=== PATIENT | male | born 1940 | race Caucasian/White ===

== ENCOUNTER 2018-01-05 14:50 | Observation (INO) | payer MEDICARE, BC ==
[2018-01-05] MEDS ORDERED: Sodium Chloride 0.9% 2.5 ML Syringe FLUSH PRN (15:01)
[2018-01-05] MEDS ORDERED: Sodium Chloride 0.9% 10 ML Syringe FLUSH PRN (15:01)
--- NOTE | 2018-01-05 15:01 | EDM.PDOC ---
<Susan Branch - Last Filed: 01/05/18 16:15> ED HPI GENERAL MEDICAL PROBLEM - General Stated Complaint: POSSIBLE STROKE Time Seen by Provider: 01/05/18 14:56 Source of Information: Reports: Patient, Family History Limitations: Reports: No Limitations - History of Present Illness INITIAL COMMENTS - FREE TEXT/NARRATIVE: HISTORY AND PHYSICAL: 77-year-old man presents with strokelike symptoms History of Present Illness: []He states that 20 minutes ago he started having tingling and some numbness decreased movement to his right leg 2008 patient states he had a stroke He has history of TIAs Patient's speech has improved over the last 2 minutes slight slurring on admission Review of Systems: As per history of present illness and below otherwise all systems reviewed and negative. Past medical history: As per history of present illness and as reviewed below otherwise noncontributory. Surgical history: As per history of present illness and as reviewed below otherwise noncontributory. Social history: No reported history of drug or alcohol abuse. Family history: As per history of present illness and as reviewed below otherwise noncontributory. Physical exam: Alert gentleman who is answering questions appropriately he keeps leaning back during examination as though he is unsteady. He does feel like he is having difficulty with his balance. Patient has slight weakness with lifting his leg on the right. Light drooping to the right side of his face. Hand grasp are equal. When asked patient does admit to having a mild headache. HEENT: Atraumatic, normocehpalic, pupils reactive, negative for conjunctival pallor or scleral icterus, mucous membranes moist, throat clear, neck supple, nontender, trachea midline. Pupils are 4 mm and react to light equally. Lungs: Clear to auscultation, breath sounds equal bilaterally, chest non tender. Heart: S1S2, regular, negative for clicks, rubs, or JVD. Abdomen: Soft, nondistended, nontender. Negative for masses or hepatossplenmegaly. Negative for costovertebral tenderness. Pelvis: Stable nontender. Genitourinary: Deferred. Rectal: Deferred Extremities: Atraumatic, negative for cords or calf pain. Neurovascular unremarkable. Neuro: Awake, alert, oriented. Cranial nerves II through XII unremarkable. Cerebellum unremarkable. Motor and sensory unremarkable throughout. Exam nonfocal. Call received from Dr. Baker and radiology stating that there was no acute changes on the head CT scan Have discussed with the family and with Dr. Kelsey that patient has resolved most of the symptoms he presented with but would like to refer for observation on telemetry and all are agreeable to this recommended course of action. Diagnostics: []Head CT EKG chest x-ray CBC CMP amylase lipase PT/INR Therapeutics: []Normal saline Impression: []TIA versus stroke Plan: []Refer for observation on telemetry Definitive disposition and diagnosis as appropriate pending reevaluation and review of above. Onset: Today, Sudden Duration: Minutes: (20) Location: Reports: Lower Extremity, Right Quality: Reports: Ache Severity: Mild Improves with: Reports: None Worsens with: Reports: None - Related Data Allergies Allergy/AdvReac Type Severity Reaction Status Date / Time No Known Allergies Allergy Verified 01/05/18 15:57 Home Meds: Home Meds Atenolol 25 mg PO BRK 08/01/14 [History] Clopidogrel [Plavix] 75 mg PO DAILY 08/01/14 [History] Aspirin [Halfprin] 1 tab PO DAILY 12/20/14 [History] Lutein/Minerals/Vit A,C & E [Ocuvite] 1 tab PO DAILY 07/18/16 [History] Rosuvastatin Calcium [Crestor] 40 mg PO DAILY 01/05/18 [History] Past Medical History HEENT History: Reports: Cataract Other HEENT History: wears glasses Cardiovascular History: Reports: High Cholesterol, Hypertension Respiratory History: Reports: None Other Respiratory History: FORMER SMOKER Gastrointestinal History: Reports: None Genitourinary History: Reports: BPH Musculoskeletal History: Reports: Amputation, Arthritis Other Musculoskeletal History: amputation of right thumb Neurological History: Reports: CVA Other Neuro History: 2008, still taking Plavix Psychiatric History: Reports: None Endocrine/Metabolic History: Reports: None Hematologic History: Reports: None Immunologic History: Reports: None Oncologic (Cancer) History: Reports: Other (See Below) Other Oncologic History: some type of skin cancer removed from chest Dermatologic History: Reports: None - Past Surgical History HEENT Surgical History: Reports: Eye Surgery Social & Family History - Family History Family Medical History: Noncontributory ED ROS GENERAL - Review of Systems Review Of Systems: ROS reveals no pertinent complaints other than HPI. ED EXAM, GENERAL - Physical Exam Exam: See Below (see dictation) EKG INTERPRETATION EKG Date: 01/05/18 Rhythm: NSR Rate (Beats/Min): 60 Comparison: No Change Course - Vital Signs Last Recorded V/S: Last Vital Signs Temp 37.0 C 01/06/18 04:00 Pulse 58 L 01/06/18 04:00 Resp 16 01/06/18 04:00 BP 113/64 01/06/18 04:00 Pulse Ox 96 01/06/18 04:00 - Orders/Labs/Meds Orders: Active Orders 24 hr Category Date Time Status Assess Neurological Status [RC] ASDIRECTED Care 01/05/18 15:04 Active Bedrest [RC] ASDIRECTED Care 01/05/18 15:04 Active Cardiac Monitoring [RC] Q8H Care 01/05/18 15:04 Active NIH Stroke Scale [RC] Q4H Care 01/05/18 15:04 Active Nursing Bedside Swallow Screen [RC] ASDIRECTED Care 01/05/18 15:04 Active Oxygen Therapy [RC] ASDIRECTED Care 01/05/18 15:04 Active Stroke Education, General [] Click to Edit Care 01/05/18 15:04 Active Sodium Chloride 0.9% [Saline Flush] Med 01/05/18 15:01 Active 10 ml FLUSH ASDIRECTED PRN Sodium Chloride 0.9% [Saline Flush] Med 01/05/18 15:01 Active 2.5 ml FLUSH ASDIRECTED PRN Peripheral IV Insertion Adult [OM.PC] Stat Oth 01/05/18 15:04 Ordered Peripheral IV Insertion Adult [OM.PC] Stat Ot 01/05/18 15:04 Ordered Resuscitation Status Stat Resus Stat 01/05/18 15:01 Ordered Medication Orders Aspirin (Halfprin) 81 mg PO DAILY [facility]REEN Clopidogrel Bisulfate (Plavix) 75 mg PO DAILY [facility]RE[facility] Rosuvastatin Calcium (Crestor) 40 mg PO DAILY NASREEN Sodium Chloride (Saline Flush) 10 ml FLUSH ASDIRECTED PRN PRN Reason: Keep Vein Open Last Admin: 01/05/18 15:42 Dose: 10 ml Sodium Chloride (Saline Flush) 2.5 ml FLUSH ASDIRECTED PRN PRN Reason: Keep Vein Open Last Admin: 01/05/18 15:42 Dose: 2.5 ml Labs: Laboratory Tests 01/05/18 01/05/18 01/05/18 Range/Units 14:50 14:50 14:50 WBC 6.19 (4.0-11.0) K/uL RBC 3.98 L (4.50-5.90) M/uL Hgb 12.7 L (13.0-17.0) g/dL Hct 37.0 L (38.0-50.0) % MCV 93.0 (80.0-98.0) fL MCH 31.9 (27.0-32.0) pg MCHC 34.3 (31.0-37.0) g/dL RDW Std Deviation 46.7 (28.0-62.0) fl RDW Coeff of Cat 14 (11.0-15.0) % Plt Count 174 (150-400) K/uL MPV 10.60 (7.40-12.00) fL Neut % (Auto) 56.4 (48.0-80.0) % Lymph % (Auto) 29.6 (16.0-40.0) % [place] % (Auto) 11.3 (0.0-15.0) % Eos % (Auto) 2.4 (0.0-7.0) % Baso % (Auto) 0.3 (0.0-1.5) % Neut # (Auto) 3.5 (1.4-5.7) K/uL Lymph # (Auto) 1.8 (0.6-2.4) K/uL [place] # (Auto) 0.7 (0.0-0.8) K/uL Eos # (Auto) 0.2 (0.0-0.7) K/uL Baso # (Auto) 0.0 (0.0-0.1) K/uL Nucleated RBC % 0.0 /100WBC Nucleated RBCs # 0 K/uL INR 1.02 APTT 25.0 (18.6-31.3) SEC Sodium 141 (136-148) mmol/L Potassium 3.9 (3.5-5.1) mmol/L Chloride 107 (98-107) mmol/L Carbon Dioxide 24.9 (21.0-32.0) mmol/L BUN 25 H (7.0-18.0) mg/dL Creatinine 1.0 (0.8-1.3) mg/dL Est Cr Clr Drug Dosing TNP Estimated GFR (MDRD) > 60.0 ml/min Glucose 85 (74-106) mg/dL Calcium 8.7 (8.5-10.1) mg/dL Total Bilirubin 0.6 (0.2-1.0) mg/dL AST 25 (15-37) IU/L ALT 22 (14-63) IU/L Alkaline Phosphatase 69 (46-116) U/L Troponin I < 0.050 (0.000-0.056) ng/mL Total Protein 7.0 (6.4-8.2) g/dL Albumin 4.1 (3.4-5.0) g/dL Globulin 2.9 (2.0-3.5) g/dL Albumin/Globulin Ratio 1.4 (1.3-2.8) TSH 3rd Generation 0.74 (0.36-3.74) uIU/mL Meds: Medications Generic Name Dose Route Start Last Admin Trade Name Freq PRN Reason Stop Dose Admin Aspirin 81 mg 01/06/18 09:00 Halfprin PO DAILY NASREEN Clopidogrel Bisulfate 75 mg 01/06/18 09:00 Plavix PO DAILY NASREEN Rosuvastatin Calcium 40 mg 01/06/18 09:00 Crestor PO DAILY NASREEN Sodium Chloride 10 ml 01/05/18 15:01 01/05/18 15:42 Saline Flush FLUSH 10 ml ASDIRECTED PRN Administration Keep Vein Open Sodium Chloride 2.5 ml 01/05/18 15:01 01/05/18 15:42 Saline Flush FLUSH 2.5 ml ASDIRECTED PRN Administration Keep Vein Open Discontinued Medications Generic Name Dose Route Start Last Admin Trade Name Freq PRN Reason Stop Dose Admin Aspirin 81 mg 01/05/18 15:35 01/05/18 15:43 Aspirin PO 01/05/18 15:36 81 mg ONETIME ONE Administration Departure - Departure Time of Disposition: 16:16 Disposition: Refer to Observation Condition: Good Clinical Impression: TIA (transient ischemic attack) Qualifiers: Transient cerebral ischemia type: unspecified Qualified Code(s): G45.9 - Transient cerebral ischemic attack, unspecified - Discharge Information <Evelyne Mcmillan - Last Filed: 01/06/18 08:21> ED HPI GENERAL MEDICAL PROBLEM - History of Present Illness INITIAL COMMENTS - FREE TEXT/NARRATIVE: This is Dr. Mcmillan dictating an addendum note as the supervising physician on this case. Patient's initial stroke scale was a 3 and I evaluated him after he returned from CT scan and he is now lifting his right leg and holding in it in the air with some wobbling but he is able to keep it from falling against gravity. This is much improved prior to his initial evaluation. We will continue with his workup including labs CT scan and discussion with the hospitalist as this is likely a TIA. At this point the patient does not meet criteria for TPA administration as his initial stroke scale is only a 3 and he is improving in his symptomatology. Please also add that this patient was admitted to observation on telemetry and was not discharged home. Discharge instructions inadvertently were placed on the chart and should be disregarded Course - Orders/Labs/Meds Labs: Laboratory Tests 01/05/18 01/05/18 01/05/18 Range/Units 14:50 14:50 14:50 WBC 6.19 (4.0-11.0) K/uL RBC 3.98 L (4.50-5.90) M/uL Hgb 12.7 L (13.0-17.0) g/dL Hct 37.0 L (38.0-50.0) % MCV 93.0 (80.0-98.0) fL MCH 31.9 (27.0-32.0) pg MCHC 34.3 (31.0-37.0) g/dL RDW Std Deviation 46.7 (28.0-62.0) fl RDW Coeff of Cat 14 (11.0-15.0) % Plt Count 174 (150-400) K/uL MPV 10.60 (7.40-12.00) fL Neut % (Auto) 56.4 (48.0-80.0) % Lymph % (Auto) 29.6 (16.0-40.0) % [place] % (Auto) 11.3 (0.0-15.0) % Eos % (Auto) 2.4 (0.0-7.0) % Baso % (Auto) 0.3 (0.0-1.5) % Neut # (Auto) 3.5 (1.4-5.7) K/uL Lymph # (Auto) 1.8 (0.6-2.4) K/uL [place] # (Auto) 0.7 (0.0-0.8) K/uL Eos # (Auto) 0.2 (0.0-0.7) K/uL Baso # (Auto) 0.0 (0.0-0.1) K/uL Nucleated RBC % 0.0 /100WBC Nucleated RBCs # 0 K/uL INR 1.02 APTT 25.0 (18.6-31.3) SEC Sodium 141 (136-148) mmol/L Potassium 3.9 (3.5-5.1) mmol/L Chloride 107 (98-107) mmol/L Carbon Dioxide 24.9 (21.0-32.0) mmol/L BUN 25 H (7.0-18.0) mg/dL Creatinine 1.0 (0.8-1.3) mg/dL Est Cr Clr Drug Dosing TNP Estimated GFR (MDRD) > 60.0 ml/min Glucose 85 (74-106) mg/dL Calcium 8.7 (8.5-10.1) mg/dL Total Bilirubin 0.6 (0.2-1.0) mg/dL AST 25 (15-37) IU/L ALT 22 (14-63) IU/L Alkaline Phosphatase 69 (46-116) U/L Troponin I < 0.050 (0.000-0.056) ng/mL Total Protein 7.0 (6.4-8.2) g/dL Albumin 4.1 (3.4-5.0) g/dL Globulin 2.9 (2.0-3.5) g/dL Albumin/Globulin Ratio 1.4 (1.3-2.8) TSH 3rd Generation 0.74 (0.36-3.74) uIU/mL
--- NOTE | 2018-01-05 15:27 | CT ---
EXAMINATION: Non contrast CT head. Coronal and sagittal reformats. HISTORY: Stroke code FINDINGS: No evidence of intra or extra axial hemorrhage, mass, midline shift, hydrocephalus or edema. There i s encephalomalacia within the left frontal to parietal distribution superiorly. No hypoattenuation changes in the major vascular territories to suggest acute infarct. No abnormal intracranial calcifications are detected. No evidence of substantial vascular calcificat ions. Minimal mucosal thickening within ethmoid air cells. Mastoid air cells are clear. Orbits and globes a re symmetric. Pituitary fossa appears unremarkable. Calvarium is intact. No evidence of skull fracture. IMPRESSION: 1. No acute intracranial findings. 2. 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 Above findings were called to the ER at 3:21 PM.
[2018-01-05] MEDS ORDERED: Aspirin 81 MG Tab.Chew PO ONE (15:35)
[2018-01-05 16:02] LABS: CHLORIDE,CL 107 mmol/L (98-107); SODIUM,NA 141 mmol/L (136-148)
--- NOTE | 2018-01-05 22:17 | PCM.HP ---
H&P History of Present Illness - General Admit Problem/Dx: Admission Diagnosis/Problem Admission Diagnosis/Problem TIA, Transient ischemic attack - History of Present Illness Initial Comments - Free Text/Narative: 77 yo male with pmh of CVA in 2008 and TIA in 2013 who is on ASA and plavix who presents with right leg and arm weakness. 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 In the ED he was noted to have facial droop and slurred speech but patient did not notice this. He had improvement in his stroke symptoms in the ED and the use of TPA was ruled out. CT head showed no acute changes. - Related Data Allergies/Adverse Reactions: Allergies Allergy/AdvReac Type Severity Reaction Status Date / Time No Known Allergies Allergy Verified 01/05/18 15:57 Home Medications: Home Meds Atenolol 25 mg PO BRK 08/01/14 [History] Clopidogrel [Plavix] 75 mg PO DAILY 08/01/14 [History] Aspirin [Halfprin] 1 tab PO DAILY 12/20/14 [History] Lutein/Minerals/Vit A,C & E [Ocuvite] 1 tab PO DAILY 07/18/16 [History] Rosuvastatin Calcium [Crestor] 40 mg PO DAILY 01/05/18 [History] Past Medical History HEENT History: Reports: Cataract Other HEENT History: wears glasses Cardiovascular History: Reports: High Cholesterol, Hypertension Respiratory History: Reports: None Other Respiratory History: FORMER SMOKER Gastrointestinal History: Reports: None Genitourinary History: Reports: BPH Musculoskeletal History: Reports: Amputation, Arthritis Other Musculoskeletal History: amputation of right thumb Neurological History: Reports: CVA Other Neuro History: 2008, still taking Plavix Psychiatric History: Reports: None Endocrine/Metabolic History: Reports: None Hematologic History: Reports: None Immunologic History: Reports: None Oncologic (Cancer) History: Reports: Other (See Below) Other Oncologic History: some type of skin cancer removed from chest Dermatologic History: Reports: None - Infectious Disease History Infectious Disease History: Reports: Chicken Pox, Measles, Mumps - Past Surgical History Head Surgeries/Procedures: Reports: None HEENT Surgical History: Reports: Eye Surgery Social & Family History - Family History Family Medical History: Noncontributory - Tobacco Use Smoking Status *Q: Never Smoker Used Tobacco, but Quit: Yes Month/Year Tobacco Last Used: 08/2008 Second Hand Smoke Exposure: No - Caffeine Use Caffeine Use: Reports: Coffee - Alcohol Use Date of Last Drink: 01/04/18 - Recreational Drug Use Recreational Drug Use: No H&P Review of Systems - Review of Systems: Review Of Systems: ROS reveals no pertinent complaints other than HPI. Exam - Exam Exam: See Below - Vital Signs Vital Signs: Last Vital Signs Temp 36.9 C 01/05/18 19:15 Pulse 62 01/05/18 19:15 Resp 16 01/05/18 19:15 BP 171/82 H 01/05/18 19:15 Pulse Ox 98 01/05/18 19:15 Weight: 67.54 kg - Exam General: Alert, Oriented HEENT: Mucosa Moist & [place] Lungs: Clear to Auscultation, Normal Respiratory Effort Cardiovascular: Regular Rate, Regular Rhythm GI/Abdominal Exam: Soft, Non-Tender Extremities: Normal Inspection, Normal Range of Motion, Non-Tender, No Pedal Edema Skin: Warm, Dry, Intact Neurological: Cranial Nerves Intact, Reflexes Equal Bilateral, Strength Equal Bilateral, Normal Tone, Sensation Intact. No: Focal Deficit - Patient Data Lab Results Last 24 hrs: Laboratory Results - last 24 hr 01/05/18 01/05/18 01/05/18 Range/Units 14:50 14:50 14:50 WBC 6.19 (4.0-11.0) K/uL RBC 3.98 L (4.50-5.90) M/uL Hgb 12.7 L (13.0-17.0) g/dL Hct 37.0 L (38.0-50.0) % MCV 93.0 (80.0-98.0) fL MCH 31.9 (27.0-32.0) pg MCHC 34.3 (31.0-37.0) g/dL RDW Std Deviation 46.7 (28.0-62.0) fl RDW Coeff of Cat 14 (11.0-15.0) % Plt Count 174 (150-400) K/uL MPV 10.60 (7.40-12.00) fL Neut % (Auto) 56.4 (48.0-80.0) % Lymph % (Auto) 29.6 (16.0-40.0) % [place] % (Auto) 11.3 (0.0-15.0) % Eos % (Auto) 2.4 (0.0-7.0) % Baso % (Auto) 0.3 (0.0-1.5) % Neut # (Auto) 3.5 (1.4-5.7) K/uL Lymph # (Auto) 1.8 (0.6-2.4) K/uL [place] # (Auto) 0.7 (0.0-0.8) K/uL Eos # (Auto) 0.2 (0.0-0.7) K/uL Baso # (Auto) 0.0 (0.0-0.1) K/uL Nucleated RBC % 0.0 /100WBC Nucleated RBCs # 0 K/uL INR 1.02 APTT 25.0 (18.6-31.3) SEC Sodium 141 (136-148) mmol/L Potassium 3.9 (3.5-5.1) mmol/L Chloride 107 (98-107) mmol/L Carbon Dioxide 24.9 (21.0-32.0) mmol/L BUN 25 H (7.0-18.0) mg/dL Creatinine 1.0 (0.8-1.3) mg/dL Est Cr Clr Drug Dosing TNP Estimated GFR (MDRD) > 60.0 ml/min Glucose 85 (74-106) mg/dL Calcium 8.7 (8.5-10.1) mg/dL Total Bilirubin 0.6 (0.2-1.0) mg/dL AST 25 (15-37) IU/L ALT 22 (14-63) IU/L Alkaline Phosphatase 69 (46-116) U/L Troponin I < 0.050 (0.000-0.056) ng/mL Total Protein 7.0 (6.4-8.2) g/dL Albumin 4.1 (3.4-5.0) g/dL Globulin 2.9 (2.0-3.5) g/dL Albumin/Globulin Ratio 1.4 (1.3-2.8) TSH 3rd Generation 0.74 (0.36-3.74) uIU/mL Result Diagrams: 01/05/18 14:50 01/05/18 14:50 Problem List Initiated/Reviewed/Updated: Yes Orders Last 24hrs: Active Orders 24 hr Category Date Time Status Patient Status [ADT] Stat ADT 01/05/18 16:13 Active Assess Neurological Status [RC] ASDIRECTED Care 01/05/18 15:04 Active Bedrest [RC] ASDIRECTED Care 01/05/18 15:04 Active Blood Glucose Check, Bedside [RC] STAT Care 01/05/18 15:04 Active Cardiac Monitoring [RC] . DIRECTED Care 01/05/18 15:04 Active EKG Documentation Completion [RC] STAT Care 01/05/18 15:04 Active Height and Weight [RC] UPON Care 01/05/18 15:04 Active Initiate Acute Stroke Protocol [RC] STAT Care 01/05/18 15:04 Active NIH Stroke Scale [RC] ASDIRECTED Care 01/05/18 15:04 Active Nursing Bedside Swallow Screen [RC] ASDIRECTED Care 01/05/18 15:04 Active Oxygen Therapy [RC] ASDIRECTED Care 01/05/18 15:04 Active Stroke Education, General [RC] Click to Edit Care 01/05/18 15:04 Active Telemetry Monitoring [Cardiac Monitoring] [RC] . Care 01/05/18 16:53 Active DIRECTED Vital Signs [RC] Q15M Care 01/05/18 15:04 Active Regular Diet [DIET] Diet 01/06/18 Breakfast Active Ang Head wo Cont [MR] Routine Exams 01/05/18 22:13 Ordered Brain w wo Cont [MR] Routine Exams 01/05/18 22:13 Ordered MRA Neck Without Contrast [Ang Neck wo Cont] [MR] Exams 01/05/18 22:13 Ordered Routine Aspirin [Halfprin] Med 01/06/18 09:00 Ordered DOSE mg PO DAILY Clopidogrel [Plavix] Med 01/06/18 09:00 Ordered 75 mg PO DAILY Rosuvastatin Calcium [Crestor] Med 01/06/18 09:00 Ordered 40 mg PO DAILY Sodium Chloride 0.9% [Saline Flush] Med 01/05/18 15:01 Active 10 ml FLUSH ASDIRECTED PRN Sodium Chloride 0.9% [Saline Flush] Med 01/05/18 15:01 Active 2.5 ml FLUSH ASDIRECTED PRN Peripheral IV Insertion Adult [OM.PC] Stat Oth 01/05/18 15:04 Ordered Peripheral IV Insertion Adult [OM.PC] Stat Oth 01/05/18 15:04 Ordered Resuscitation Status Stat Resus Stat 01/05/18 15:01 Ordered Medication Orders Aspirin (Halfprin) 81 mg PO DAILY NASREEN Clopidogrel Bisulfate (Plavix) 75 mg PO DAILY NASREEN Non-Formulary Medication (Rosuvastatin Calcium [Crestor]) 40 mg PO DAILY NASREEN Sodium Chloride (Saline Flush) 10 ml FLUSH ASDIRECTED PRN PRN Reason: Keep Vein Open Last Admin: 01/05/18 15:42 Dose: 10 ml Sodium Chloride (Saline Flush) 2.5 ml FLUSH ASDIRECTED PRN PRN Reason: Keep Vein Open Last Admin: 01/05/18 15:42 Dose: 2.5 ml Assessment/Plan Comment:: 77 yo male admitted with TIA. We will observe overnight on telemetry.
[2018-01-06] MEDS: Rosuvastatin 10 MG Tab PO SCH (09:26)
[2018-01-06] MEDS: Clopidogrel 75 MG Tab PO SCH (09:29)
[2018-01-06] MEDS: Aspirin 81 MG Tab.EC PO SCH (09:30)
--- NOTE | 2018-01-06 13:00 | PCM.PN ---
- General Info Date of Service: 01/06/18 Admission Dx/Problem (Free Text): Admission Diagnosis/Problem Admission Diagnosis/Problem TIA, Transient ischemic attack Subjective Update: patient doing much better today. He is alert and oriented and now ambulating with some difficulty. He is requesting to go home. Functional Status: Reports: Pain Controlled, Tolerating Diet, Ambulating, Urinating - Review of Systems General: Reports: No Symptoms HEENT: Reports: No Symptoms Pulmonary: Reports: No Symptoms Cardiovascular: Reports: No Symptoms Gastrointestinal: Reports: No Symptoms Genitourinary: Reports: No Symptoms Musculoskeletal: Reports: No Symptoms Skin: Reports: No Symptoms Neurological: Reports: Pre-Existing Deficit, Weakness (improving ) Psychiatric: Reports: No Symptoms - Patient Data Vitals - Most Recent: Last Vital Signs Temp 36.7 C 01/06/18 12:00 Pulse 53 L 01/06/18 12:00 Resp 13 01/06/18 12:00 BP 155/73 H 01/06/18 12:00 Pulse Ox 98 01/06/18 12:00 Weight - Most Recent: 67.54 kg I&O - Last 24 Hours: Intake & Output 01/05/18 01/06/18 01/06/18 22:59 06:59 14:59 Intake Total 360 Output Total 500 Balance -140 Lab Results Last 24 Hours: Laboratory Results - last 24 hr 01/05/18 01/05/18 01/05/18 Range/Units 14:50 14:50 14:50 WBC 6.19 (4.0-11.0) K/uL RBC 3.98 L (4.50-5.90) M/uL Hgb 12.7 L (13.0-17.0) g/dL Hct 37.0 L (38.0-50.0) % MCV 93.0 (80.0-98.0) fL MCH 31.9 (27.0-32.0) pg MCHC 34.3 (31.0-37.0) g/dL RDW Std Deviation 46.7 (28.0-62.0) fl RDW Coeff of Cat 14 (11.0-15.0) % Plt Count 174 (150-400) K/uL MPV 10.60 (7.40-12.00) fL Neut % (Auto) 56.4 (48.0-80.0) % Lymph % (Auto) 29.6 (16.0-40.0) % [place] % (Auto) 11.3 (0.0-15.0) % Eos % (Auto) 2.4 (0.0-7.0) % Baso % (Auto) 0.3 (0.0-1.5) % Neut # (Auto) 3.5 (1.4-5.7) K/uL Lymph # (Auto) 1.8 (0.6-2.4) K/uL [place] # (Auto) 0.7 (0.0-0.8) K/uL Eos # (Auto) 0.2 (0.0-0.7) K/uL Baso # (Auto) 0.0 (0.0-0.1) K/uL Nucleated RBC % 0.0 /100WBC Nucleated RBCs # 0 K/uL INR 1.02 APTT 25.0 (18.6-31.3) SEC Sodium 141 (136-148) mmol/L Potassium 3.9 (3.5-5.1) mmol/L Chloride 107 (98-107) mmol/L Carbon Dioxide 24.9 (21.0-32.0) mmol/L BUN 25 H (7.0-18.0) mg/dL Creatinine 1.0 (0.8-1.3) mg/dL Est Cr Clr Drug Dosing TNP Estimated GFR (MDRD) > 60.0 ml/min Glucose 85 (74-106) mg/dL Calcium 8.7 (8.5-10.1) mg/dL Total Bilirubin 0.6 (0.2-1.0) mg/dL AST 25 (15-37) IU/L ALT 22 (14-63) IU/L Alkaline Phosphatase 69 (46-116) U/L Troponin I < 0.050 (0.000-0.056) ng/mL Total Protein 7.0 (6.4-8.2) g/dL Albumin 4.1 (3.4-5.0) g/dL Globulin 2.9 (2.0-3.5) g/dL Albumin/Globulin Ratio 1.4 (1.3-2.8) TSH 3rd Generation 0.74 (0.36-3.74) uIU/mL Med Orders - Current: Current Medications Aspirin (Halfprin) 81 mg PO DAILY [facility] Last Admin: 01/06/18 09:30 Dose: 81 mg Clopidogrel Bisulfate (Plavix) 75 mg PO DAILY [facility] Last Admin: 01/06/18 09:29 Dose: 75 mg Rosuvastatin Calcium (Crestor) 40 mg PO DAILY [facility] Last Admin: 01/06/18 09:26 Dose: 40 mg Sodium Chloride (Saline Flush) 10 ml FLUSH ASDIRECTED PRN PRN Reason: Keep Vein Open Last Admin: 01/05/18 15:42 Dose: 10 ml Sodium Chloride (Saline Flush) 2.5 ml FLUSH ASDIRECTED PRN PRN Reason: Keep Vein Open Last Admin: 01/05/18 15:42 Dose: 2.5 ml Discontinued Medications Aspirin (Aspirin) 81 mg PO ONETIME ONE Stop: 01/05/18 15:36 Last Admin: 01/05/18 15:43 Dose: 81 mg - Exam General: Alert, Oriented, Cooperative, No Acute Distress HEENT: Pupils Equal, Pupils Reactive, EOMI, Mucous Membr. Moist/[place] Neck: Supple Lungs: Clear to Auscultation, Normal Respiratory Effort Cardiovascular: Regular Rate, Murmurs Extremities: Normal Inspection (s/p right thumb amputation ), Normal Range of Motion, Non-Tender, No Pedal Edema, Normal Capillary Refill Peripheral Pulses: 2+: Dorsalis Pedis (L), Dorsalis Pedis (R) Skin: Intact Neurological: Other (Gait antalgic but improving, sensation intact throughout, motor strength 5/5, specimen collector strength strong and symmetric, normal finger to nose, normal heel to chaidez, CN 2-12 intact, DTR 2+) Psy/Mental Status: Alert, Normal Affect, Normal Mood - Problem List Review Problem List Initiated/Reviewed/Updated: Yes - Plan Plan:: 77 yo male with Hx HTN, HLD and CVA with residual defects admitted with TIA #TIA #HX CVA with mild residual defects -CT head in ED negative for acute changes -symptoms improving -neuro exam: Gait antalgic, sensation intact throughout, motor strength 5/5, specimen collector strength strong and symmetric, normal finger to nose, normal heel to chaidez, CN 2-12 intact, DTR 2+ -on ASA, Plavix, Crestor 40 mg QD Plan: -MRA head Neck -echocardiogram -lipid panel -HbA1c #HTN -on Atenolol 25 mg QD at home -resume as necessary
[2018-01-06] MEDS ORDERED: Gadobenate Dimeglumine 529 MG/ML 20 ML SDV IVPUSH STA (14:54)
--- NOTE | 2018-01-06 16:00 | MR ---
MRI angiography of the intracranial vessels Clinical history: TIA with right-sided weakness Findings: 3-D [id number]-bk-[id number] images demonstrate that the internal carotid circulation is normal, in n ormal constituting anterior cerebral and middle cerebral artery vessels normally. The left A1 segment is dominant and a small A1 segment is present on the right. The posterior cerebral artery originates normally on the left from the basilar artery with no visual evidence of the right posterior cerebral artery. The right posterior cerebral artery evidently arises from the carotid, a normal variant. No major vessel occlusion is evident. Impression: No evidence of major intracranial vessel occlusion. Variant origin of the right posterior cerebral artery
--- NOTE | 2018-01-06 16:04 | MR ---
MR angiography of the neck Images were conducted without intravenous contrast. 3-D tcuo-bk-kgnxtm technique was employed to visu murphy the vessels. Findings: The internal carotid arteries are normal in caliber at their origin on the right with sligh t stenosis secondary to plaque formation at the origin of the left internal carotid artery. The cepha lic vessels take normal origin from the arch although the vertebral arteries are poorly seen correlat ion with a carotid duplex scan of August 01, 2014 suggested no significant Doppler colostomy abnorm alities at that time Impression: Study of somewhat limited technical quality demonstrating some stenosis which is difficul t to characterize at the origin of the left internal carotid artery. Repeat duplex scanning would be more useful
[2018-01-06] MEDS ORDERED: Atenolol 25 MG Tab PO ONE (19:54)
--- NOTE | 2018-01-07 05:11 | PCM.DCSUM1 ---
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 He was admitted from 01/05-01/07. Upon admission to the ED he had RLE weakness and right facial weakness. He was sent for CT head which was negative for acute changes. Upon return from CT he has significant improvement of weakness and drooping. Neurologist was not available therefore consult was not placed. Following day his neuro exam had esentially normalize other some gait disturbance which he states he did have previously and seemed to be improving. MRI brain was done which was negative for acute changes. MRA Head/Neck was also done which showed mild to moderate however Left ICA was distorted for unclear reasons and Duplex Carotid was recommended which was done and revealed 50-69 % stenosis of left ICA and carotid bulb. His echo was also done which was consistent with HFpEF. He was already on Plavix, ASA and Crestor 40 mg QD which were resumed. Repeat lipid panel and HbA1C were obtained. He sees Dr. Yuen as his PCP and f/u was arranged. Prior to discharge he did complain of lumbar pain with radiation down his right led below his knee. This is a chronic problem for him and he has had spinal surgery in the past. He states he had epidural steroid injection in the past which worked well. He was informed that this is not usually done during hospitalization and he should f/u with his PCP for this. #TIA #HX CVA 2008 with mild residual defects #Cerebrovascular Disease, Left ICA & bulb -CT head in ED negative for acute changes -MRI Brain negative for acute changes -MRA Head/Neck mild to moderate however Left ICA was distorted for unclear reasons -Duplex Carotid reveals 50-69% stenosis of Left ICA and carotid bulb. No significant stenosis at right ICA -echo consistent with HFpEF -on ASA, Plavix, Crestor 40 mg QD -lipid panel 01/05: LDL 60, TC 139, HDL 69 -HbA1c 6% on 01/05 Plan: -resume home ASA, Plavix and Crestor -f/u with PCP to discuss referral to vascular surgery for further evaluation #HTN, controlled, on Atenolol 25 mg QD #HFpEF -Overnight telemetry fluctuating bw NSR and sinus bradycardia -BP elevated to 150-160s -started Lisinopril 5 mg QD - BP improved to 130-140 Plan: -due to Hx CVA and cerebrovascular disease recommended target SBP 120-130 -resume home Atenolol 25 mg QD -prescribed Lisinopril 10 mg tabs, instructed him to take 0.5 tab daily until f/ u with PCP for repeat BP check -f/u with PCP #Lumbar Back Pain, likely due to OA #Sciatica, right -f/u with PCP to arrange for epidural injections and/or MRI - Discharge Data Discharge Date: 01/07/18 Discharge Disposition: Home, Self-Care 01 Condition: Good - Patient Instructions Diet: Heart Healthy Diet Activity: As Tolerated Showering/Bathing: December Shower Notify Provider of: Fever, Increased Pain, Swelling and Redness, Drainage, Nausea and/or Vomiting - Discharge Plan Prescriptions/Med Rec: Lisinopril 10 mg PO DAILY #30 tablet Home Medications: Home Meds Atenolol 25 mg PO BRK 08/01/14 [History] Clopidogrel [Plavix] 75 mg PO DAILY 08/01/14 [History] Aspirin [Halfprin] 1 tab PO DAILY 12/20/14 [History] Lutein/Minerals/Vit A,C & E [Ocuvite] 1 tab PO DAILY 07/18/16 [History] Rosuvastatin Calcium [Crestor] 40 mg PO DAILY 01/05/18 [History] Lisinopril 10 mg PO DAILY #30 tablet 01/07/18 [Rx] Patient Handouts: Transient Ischemic Attack, Weoe-ez-[id number], Lisinopril tablets Referrals: [facility] [Outside] Rui Esteban MD [Primary Care Provider] - 01/15/18 8:45 am - Discharge Summary/Plan Comment DC Time >30 min.: No - General Info Date of Service: 01/07/18 Functional Status: Reports: Pain Controlled, Tolerating Diet, Ambulating, Urinating - Review of Systems General: Reports: No Symptoms HEENT: Reports: No Symptoms Pulmonary: Reports: No Symptoms Cardiovascular: Reports: No Symptoms Gastrointestinal: Reports: No Symptoms Genitourinary: Reports: No Symptoms Musculoskeletal: Reports: Back Pain Skin: Reports: No Symptoms Neurological: Reports: Pre-Existing Deficit, Gait Disturbance Psychiatric: Reports: No Symptoms - Patient Data Vitals - Most Recent: Last Vital Signs Temp 36.5 C 01/07/18 00:00 Pulse 72 01/07/18 00:00 Resp 20 01/07/18 00:00 BP 159/88 H 01/07/18 00:00 Pulse Ox 96 01/07/18 00:00 Weight - Most Recent: 67.54 kg I&O - Last 24 hours: Intake & Output 01/06/18 01/06/18 01/07/18 14:59 22:59 06:59 Intake Total 220 120 Output Total 400 550 Balance -180 -430 Lab Results - Last 24 hrs: Laboratory Results - last 24 hr 01/06/18 01/06/18 Range/Units 13:22 13:22 Hemoglobin A1c 6.0 (4.5-6.2) % Triglycerides 48 (0-200) mg/dL Cholesterol 139 (50-200) mg/dL LDL Cholesterol, Calc 60 (60-180) mg/dL VLDL Cholesterol 9 (5-55) mg/dL HDL Cholesterol 69 H (40-60) mg/dL Cholesterol/HDL Ratio 2.0 L (3.3-6.0) Med Orders - Current: Current Medications Aspirin (Halfprin) 81 mg PO DAILY [facility] Last Admin: 01/06/18 09:30 Dose: 81 mg Atenolol (Tenormin) 25 mg PO ONETIME ONE Stop: 01/07/18 09:01 Clopidogrel Bisulfate (Plavix) 75 mg PO DAILY [facility] Last Admin: 01/06/18 09:29 Dose: 75 mg Rosuvastatin Calcium (Crestor) 40 mg PO DAILY [facility] Last Admin: 01/06/18 09:26 Dose: 40 mg Sodium Chloride (Saline Flush) 10 ml FLUSH ASDIRECTED PRN PRN Reason: Keep Vein Open Last Admin: 01/05/18 15:42 Dose: 10 ml Sodium Chloride (Saline Flush) 2.5 ml FLUSH ASDIRECTED PRN PRN Reason: Keep Vein Open Last Admin: 01/05/18 15:42 Dose: 2.5 ml Discontinued Medications Aspirin (Aspirin) 81 mg PO ONETIME ONE Stop: 01/05/18 15:36 Last Admin: 01/05/18 15:43 Dose: 81 mg Atenolol (Tenormin) 25 mg PO ONETIME ONE Stop: 01/06/18 19:55 Last Admin: 01/06/18 20:23 Dose: 25 mg Gadobenate Dimeglumine (Multihance) 20 ml IVPUSH ONETIME STA Stop: 01/06/18 14:55 Last Admin: 01/06/18 14:55 Dose: 13 ml - Exam General: Reports: Alert, Oriented, Cooperative, No Acute Distress HEENT: Reports: Pupils Equal, Pupils Reactive, EOMI, Mucous Membr. Moist/[employer] Neck: Reports: Supple, No JVD Lungs: Reports: Clear to Auscultation, Normal Respiratory Effort Cardiovascular: Reports: Regular Rate, Murmurs GI/Abdominal Exam: Normal Bowel Sounds, Soft, Non-Tender Back Exam: Reports: Decreased Range of Motion (lumbar ). Denies: Vertebral Tenderness Extremities: Normal Inspection (right thumb amputation), Non-Tender, No Pedal Edema, Normal Capillary Refill Skin: Reports: Warm, Dry, Intact Neurological: Reports: No New Focal Deficit, Normal Speech, Other (ait antalgic , sensation intact throughout, motor strength 5/5, vice president of talent acquisition strength strong and symmetric, normal finger to nose, normal heel to chaidez, CN 2-12 intact, DTR 2+) Psy/Mental Status: Reports: Alert, Normal Affect, Normal Mood <Timothy Kelsey - Last Filed: 01/08/18 08:49> - Patient Data Vitals - Most Recent: Last Vital Signs Temp 36.6 C 01/07/18 07:44 Pulse 64 01/07/18 08:20 Resp 19 01/07/18 07:44 BP 137/96 H 01/07/18 09:50 Pulse Ox 97 01/07/18 07:44 Med Orders - Current: Current Medications Discontinued Medications Aspirin (Aspirin) 81 mg PO ONETIME ONE Stop: 01/05/18 15:36 Last Admin: 01/05/18 15:43 Dose: 81 mg Aspirin (Halfprin) 81 mg PO DAILY [facility] Last Admin: 01/07/18 08:20 Dose: 81 mg Atenolol (Tenormin) 25 mg PO ONETIME ONE Stop: 01/07/18 09:01 Last Admin: 01/07/18 08:20 Dose: 25 mg Atenolol (Tenormin) 25 mg PO ONETIME ONE Stop: 01/06/18 19:55 Last Admin: 01/06/18 20:23 Dose: 25 mg Clopidogrel Bisulfate (Plavix) 75 mg PO DAILY [facility] Last Admin: 01/07/18 08:21 Dose: 75 mg Gadobenate Dimeglumine (Multihance) 20 ml IVPUSH ONETIME STA Stop: 01/06/18 14:55 Last Admin: 01/06/18 14:55 Dose: 13 ml Lisinopril (Prinivil) 10 mg PO ONETIME ONE Stop: 01/07/18 05:35 Last Admin: 01/07/18 05:52 Dose: Not Given Lisinopril (Prinivil) 5 mg PO ONETIME ONE Stop: 01/07/18 05:45 Last Admin: 01/07/18 06:05 Dose: 5 mg Rosuvastatin Calcium (Crestor) 40 mg PO DAILY [facility] Last Admin: 01/07/18 08:21 Dose: 40 mg Sodium Chloride (Saline Flush) 10 ml FLUSH ASDIRECTED PRN PRN Reason: Keep Vein Open Last Admin: 01/05/18 15:42 Dose: 10 ml Sodium Chloride (Saline Flush) 2.5 ml FLUSH ASDIRECTED PRN PRN Reason: Keep Vein Open Last Admin: 01/05/18 15:42 Dose: 2.5 ml - Free Text/Narrative Note: I have examined the patient. I have discussed treatment plan with the resident. I agree with the assessment and plan outlined in the following resident's note.
[2018-01-07] MEDS ORDERED: Lisinopril 10 MG Tab PO ONE (05:34)
[2018-01-07] MEDS ORDERED: Lisinopril 5 MG Tab PO ONE (05:44)
[2018-01-07] MEDS: Aspirin 81 MG Tab.EC PO SCH (08:20)
[2018-01-07] MEDS: Rosuvastatin 10 MG Tab PO SCH (08:21)
[2018-01-07] MEDS: Clopidogrel 75 MG Tab PO SCH (08:21)
[2018-01-07] MEDS ORDERED: Atenolol 25 MG Tab PO ONE (09:00)
--- NOTE | 2018-01-07 09:17 | US ---
EXAM DATE: 01/05/18 PATIENT'S AGE: 77 Patient: AAMIR WYLIE Facility: [facility] Site . Site : 1940 Study: US-Neck Angio Bilateral [id number]/30/2018 5:30:29 PM Ordering Physician: Laure Aguirre Final Report: INDICATION: TIA. Hypertension. Hyperlipidemia. FINDINGS: A carotid duplex Doppler ultrasound was performed using grayscale imaging as well as color and spectral Doppler analysis. NASCET criteria applied. Right: Peak systolic velocity in the right internal carotid wcyvcn=737 cm/second. Mild plaque in the right carotid bulb. Anterograde flow in the right vertebral artery. Left: Peak systolic velocity in the left internal carotid rcdcin=140 cm/second. There is also an elevated velocity in the left carotid dhuj=165 cm/second. Heterogeneous plaque in the left carotid bulb. Anterograde flow in the left vertebral artery. IMPRESSION: 1. 50-69% stenosis in the left internal carotid artery and carotid bulb. 2. No hemodynamically significant stenosis in the right internal carotid artery. Dictated by Ben Garcia MD @ 01/07/2018 9:14:29 AM Dictated by: Ben Garcia MD @ 01/07/2018 09:14:46 Signed by: Ben Garcia MD @01/07/2018 9:14:46 AM (Electronic Signature) Report Signed by Proxy. ALEXI
--- NOTE | 2018-01-07 09:19 | MR ---
EXAM DATE: 01/05/18 PATIENT'S AGE: 77 Patient: AAMIR WYLIE Facility: [facility] Site . Site : 1940 Study: MRI-Head W/ and W/O Cont [id number]/30/2018 5:11:40 PM Ordering Physician: Laure Aguirre Final Report: INDICATION: Right-sided weakness. TECHNIQUE: MRI brain: Multiplanar multisequence MR images were obtained of the brain prior to and following administration of intravenous contrast. MRA head: 3D time-of- flight images were obtained through the [place] of [place]. MRA neck: 2D and 3D [id number] MRA images were obtained through the neck. COMPARISON: None. FINDINGS: MRI brain: Multiple punctate foci of diffusion restriction within the bilateral cerebral hemispheres, compatible with recent infarctions. Infarcts are visualized within the left perirolandic region, anterior left frontal lobe, parasagittal right superior parietal lobule, medial right inferior parietal lobule, and left occipital lobe. There is prominence of the ventricles and sulci compatible with mild to moderate diffuse cerebral volume loss. Moderate sized area of volume loss and gliosis within the left frontoparietal region associated with ex vacuo dilatation of the left lateral ventricle, compatible with a chronic infarction. Patchy and scattered T2 FLAIR hyperintensity elsewhere in the supratentorial white matter, compatible with moderate chronic microvascular ischemic disease with superimposed chronic lacunar infarctions in the bilateral basal ganglia. Multiple small chronic lacunar infarctions in the posterior right cerebellar hemisphere. Small chronic lacunar infarct in the left jonathan. No intracranial hemorrhage or pathologic extra-axial fluid collection. Motion artifact significantly limits evaluation of postcontrast images. Within this limitation, no obvious or definite pathologic intracranial enhancement is identified. The globes are symmetric in size. Mild mucosal thickening in the ethmoid air cells. The mastoid air cells are clear. MRA head: The major vessels of the anterior circulation, including the internal carotid, middle cerebral, and anterior cerebral arteries are patent without hemodynamically significant stenosis. Right A1 segment is dominant and left A1 segment is hypoplastic. origin of the right posterior cerebral artery. The major vessels of the posterior circulation, including the vertebral, basilar , and posterior cerebral arteries are patent without hemodynamically significant stenosis. No aneurysm or high-flow vascular malformation is identified. MRA neck: Noncontrast technique and motion artifact limit evaluation. Within the limitations, no hemodynamically significant stenosis of the great vessels arising from the aortic arch, or the common carotid, internal carotid, external carotid, or vertebral arteries. Mild narrowing and irregularity of the proximal left cervical internal carotid artery. IMPRESSION: 1. Multiple recent punctate infarctions in the bilateral cerebral hemispheres, including involvement of the left perirolandic region, left frontal lobe, right parietal lobe, and left occipital lobe. 2. Moderate size chronic infarction involving the left frontoparietal region. 3. Moderate chronic microvascular ischemic disease with superimposed chronic lacunar infarctions in the bilateral basal ganglia, left jonathan, and right cerebellar hemisphere. 4. Tqcq-yv-ugtcbexo diffuse cerebral volume loss. 5. No hemodynamically significant stenosis in the major intracranial arteries. 6. Motion artifact and noncontrast technique limit MRA evaluation of the neck. Within this limitation, no hemodynamically significant stenosis of the major cervical arteries. Dictated by Vincent Vaca MD @ Jan 06 2018 5:22PM Signed by: Vincent Vaca MD @01/06/2018 5:40:13 PM (Electronic Signature) Report Signed by Proxy. ALEXI
[2018-01-07 10:05] VITALS: BP 137/96
--- NOTE | 2018-01-08 20:21 | ECHO ---
The echocardiogram report can be seen in this patient's EMR (Electronic Medical Record) in the Reports section. The echocardiogram report has also been scanned into PACS and can be seen there. ALEXI
== END 2018-01-07 11:37 | disposition home or self-care (01) ==
LOC: MW.ED 14:50 → MW.MS 16:13 → MW.ED 16:55
PROVIDERS: ADMIT Internal Medicine; ATTEND Internal Medicine
DX: G45.9 Transient cerebral ischemic attack, unspecified (principal); E78.5 Hyperlipidemia, unspecified; I69.398 Other sequelae of cerebral infarction; I11.0 Hypertensive heart disease with heart failure; I50.30 Unspecified diastolic (congestive) heart failure; M54.5 Low back pain; M54.31 Sciatica, right side; E78.00 Pure hypercholesterolemia, unspecified; N40.0 Benign prostatic hyperplasia without lower urinary tract symptoms; M19.90 Unspecified osteoarthritis, unspecified site; Z79.02 Long term (current) use of antithrombotics/antiplatelets; Z79.82 Long term (current) use of aspirin; Z79.899 Other long term (current) drug therapy; Z87.891 Personal history of nicotine dependence; Z85.828 Personal history of other malignant neoplasm of skin
CPT/HCPCS: 36415; 70450; 70450-26; 70544; 70544-26; 70547; 70547-26; 70553; 70553-26; 80053; 80061; 83036; 84443; 84484; 85025; 85610; 85730; 93005; 93306; 93880; 93880-26; 99284; 99285-25; A9270-GY; A9577; G0378

== ENCOUNTER 2018-02-13 21:15 | Emergency (ER) | payer MEDICARE, BC ==
--- NOTE | 2018-02-13 21:23 | EDM.PDOC ---
ED HPI GENERAL MEDICAL PROBLEM - General Chief Complaint: Upper Extremity Injury/Pain Stated Complaint: FELL & HURT SHOULDER Time Seen by Provider: 02/13/18 21:17 - History of Present Illness INITIAL COMMENTS - FREE TEXT/NARRATIVE: HISTORY AND PHYSICAL: History of present illness: Patient is 77-year-old male history of CVA who was on Plavix who presents status post fall which he tripped over a hose striking his face and left shoulder. No loss of consciousness he denies any other trauma or concern he said no nausea no vomiting denies neck pain chest pain abdominal pain shortness of breath or any other concern. Review of systems: As per history of present illness and below otherwise all systems reviewed and negative. Past medical history: As per history of present illness and as reviewed below otherwise noncontributory. Surgical history: As per history of present illness and as reviewed below otherwise noncontributory. Social history: No reported history of drug or alcohol abuse. Family history: As per history of present illness and as reviewed below otherwise noncontributory. Physical exam: HEENT: Abrasion noted over his nasal bridge and midface with some small swelling is no crepitation no bleeding normocephalic, pupils reactive, negative for conjunctival pallor or scleral icterus, mucous membranes moist, throat clear , neck supple, nontender, trachea midline. Lungs: Clear to auscultation, breath sounds equal bilaterally, chest nontender. Heart: S1S2, regular, negative for clicks, rubs, or JVD. Abdomen: Soft, nondistended, nontender. Negative for masses or hepatosplenomegaly. Negative for costovertebral tenderness. Pelvis: Stable nontender. Genitourinary: Deferred. Rectal: Deferred. Extremities: Atraumatic, negative for cords or calf pain. Neurovascular unremarkable. Neuro: Awake, alert, oriented. Cranial nerves II through XII unremarkable. Cerebellum unremarkable. Motor and sensory unremarkable throughout. Exam nonfocal. Diagnostics: CT brain facial bones x-ray left shoulder Therapeutics: None Impression: 1 observation status post fall #2 blunt head/midfacial trauma #3 acute left shoulder injury Definitive disposition and diagnosis as appropriate pending reevaluation and review of above. - Related Data Allergies Allergy/AdvReac Type Severity Reaction Status Date / Time No Known Allergies Allergy Verified 01/05/18 15:57 Home Meds: Home Meds Atenolol 25 mg PO BRK 12/23/14 [History] Clopidogrel [Plavix] 75 mg PO DAILY 08/01/14 [History] Aspirin [Halfprin] 1 tab PO DAILY 12/20/14 [History] Lutein/Minerals/Vit A,C & E [Ocuvite] 1 tab PO DAILY 07/18/16 [History] Rosuvastatin Calcium [Crestor] 40 mg PO DAILY 01/05/18 [History] Lisinopril 10 mg PO DAILY #30 tablet 01/07/18 [Rx] Past Medical History HEENT History: Reports: Cataract Other HEENT History: wears glasses Cardiovascular History: Reports: High Cholesterol, Hypertension Respiratory History: Reports: None Other Respiratory History: FORMER SMOKER Gastrointestinal History: Reports: None Genitourinary History: Reports: BPH Musculoskeletal History: Reports: Amputation, Arthritis Other Musculoskeletal History: amputation of right thumb Neurological History: Reports: CVA Other Neuro History: 2008, still taking Plavix Psychiatric History: Reports: None Endocrine/Metabolic History: Reports: None Hematologic History: Reports: None Immunologic History: Reports: None Oncologic (Cancer) History: Reports: Other (See Below) Other Oncologic History: some type of skin cancer removed from chest Dermatologic History: Reports: None - Infectious Disease History Infectious Disease History: Reports: Chicken Pox, Measles, Mumps - Past Surgical History Head Surgeries/Procedures: Reports: None HEENT Surgical History: Reports: Eye Surgery Social & Family History - Family History Family Medical History: Noncontributory - Caffeine Use Caffeine Use: Reports: Coffee Review of Systems - Review of Systems Review Of Systems: ROS reveals no pertinent complaints other than HPI. ED EXAM, GENERAL - Physical Exam Exam: See Below (Dictation) Course - Vital Signs Last Recorded V/S: Last Vital Signs Temp 36.6 C 02/13/18 22:44 Pulse 81 02/13/18 22:44 Resp 16 02/13/18 22:44 BP 135/71 02/13/18 22:44 Pulse Ox 95 02/13/18 22:44 - Orders/Labs/Meds Orders: Active Orders 24 hr Category Date Time Status Vaccines to be Administered [RC] PER UNIT ROUTINE Care 02/13/18 21:24 Active Head wo Cont [CT] Stat Exams 02/13/18 21:20 Taken Max Facial Sinus wo Cont [CT] Stat Exams 02/13/18 21:20 Taken Shoulder Comp Lt [CR] Stat Exams 02/13/18 21:21 Taken Meds: Medications Discontinued Medications Generic Name Dose Route Start Last Admin Trade Name Isidra PRN Reason Stop Dose Admin Tetanus/Diphtheria Toxoids 0.5 ml 02/13/18 21:24 02/13/18 21:43 Tenivac IM 02/13/18 21:25 0.5 ml .ONCE ONE Administration Departure - Departure Time of Disposition: 23:01 Disposition: Home, Self-Care 01 Condition: Good Clinical Impression: Head injury, Shoulder injury, Fall - Discharge Information Forms: ED Department Discharge Additional Instructions: The following information is given to patients seen in the emergency department who are being discharged to home. This information is to outline your options for follow-up care. We provide all patients seen in our emergency department with a follow-up referral. The need for follow-up, as well as the timing and circumstances, are variable depending upon the specifics of your emergency department visit. If you don't have a primary care physician on staff, we will provide you with a referral. We always advise you to contact your personal physician following an emergency department visit to inform them of the circumstance of the visit and for follow-up with them and/or the need for any referrals to a consulting specialist. The emergency department will also refer you to a specialist when appropriate. This referral assures that you have the opportunity for followup care with a specialist. All of these measure are taken in an effort to provide you with optimal care, which includes your followup. Under all circumstances we always encourage you to contact your private physician who remains a resource for coordinating your care. When calling for followup care, please make the office aware that this follow-up is from your recent emergency room visit. If for any reason you are refused follow-up, please contact the [facility] emergency department at and asked to speak to the emergency department charge nurse. Follow-up primary medical doctor as needed as discussed return as needed as discussed - My Orders Last 24 Hours: My Active Orders 02/13/18 21:20 Head wo Cont [CT] Stat Max Facial Sinus wo Cont [CT] Stat 02/13/18 21:21 Shoulder Comp Lt [CR] Stat 02/13/18 21:24 Vaccines to be Administered [RC] PER UNIT ROUTINE - Assessment/Plan Last 24 Hours: My Active Orders 02/13/18 21:20 Head wo Cont [CT] Stat Max Facial Sinus wo Cont [CT] Stat 02/13/18 21:21 Shoulder Comp Lt [CR] Stat 02/13/18 21:24 Vaccines to be Administered [RC] PER UNIT ROUTINE
[2018-02-13] MEDS ORDERED: Diphtheria/Tetanus Toxoids,Adult (Td) 0.5 ML Syringe IM ONE (21:24)
[2018-02-13 23:26] VITALS: BP 127/72
--- NOTE | 2018-02-15 20:32 | CT ---
EXAM DATE: 02/13/18 PATIENT'S AGE: 77 Patient: AAMIR WYLIE Facility: [place], [place] Site . Site : 1940 Study: CT Facial [id number]/7/2018 10:23:51 PM Ordering Physician: Yovanny Shankar Final Report: INDICATION: Tripped and fell onto steps, hit forehead and nose TECHNIQUE: CT maxillofacial without i.v. contrast. Coronal and sagittal reformats were obtained. CONTRAST: None COMPARISON: None FINDINGS: Bone: No acute fractures or aggressive bone lesions are identified. Chronic appearing bilateral nasal bone fractures noted. Joint: The temporomandibular joints are unremarkable in appearance. Sinus: The sinuses are well-aerated with no significant mucosal thickening or retained secretions seen. The ostiomeatal units are patent. The nasal turbinates are normal. The nasal septum is midline and intact. Orbit: The visualized orbits are grossly unremarkable. Soft tissue: There is a high density 3 mm structure in the soft tissues near the left parasymphyseal region that may be due to a foreign body. IMPRESSION: 1. No acute osseous injuries or abnormalities are seen. 2. There is a high density 3 mm structure in the soft tissues near the left parasymphyseal region that may be due to a foreign body. Please note that all CT scans at this facility use dose modulation, iterative reconstruction, and/or weight-based dosing when appropriate to reduce radiation dose to as low as reasonably achievable. Dictated by: Yogi Núñez MD @ 02/13/2018 23:03:29 (Electronic Signature) Report Signed by Proxy. MTDD
--- NOTE | 2018-02-15 20:33 | CR ---
EXAM DATE: 02/13/18 PATIENT'S AGE: 77 Patient: AAMIR WYLIE Facility: [place], [place] Site . Site : 1940 Study: XRay Shoulder Left [id number]/7/2018 10:27:01 PM Ordering Physician: Doctor Stephenson Final Report: INDICATION: Shoulder pain, fell down stairs TECHNIQUE: Shoulder radiograph 3 views left COMPARISON: None FINDINGS: Bones: No acute fractures or aggressive bone lesions are identified. Joints: Severe osteoarthritis of the AC joint is noted. Mild osteoarthritis of the glenohumeral joint is present. Soft tissues: Unremarkable. The visualized hemithorax is unremarkable in appearance. No radiopaque foreign bodies are seen. IMPRESSION: 1. No acute osseous injuries or abnormalities are noted. Dictated by Yogi Núñez MD @ 02/13/2018 10:37:27 PM Dictated by: Yogi Núñez MD @ 02/13/2018 22:37:30 (Electronic Signature) Report Signed by Proxy. ALEXI
--- NOTE | 2018-02-15 20:33 | CT ---
EXAM DATE: 02/13/18 PATIENT'S AGE: 77 Patient: AAMIR WYLIE Facility: [place], [place] Site . Site : 1940 Study: CT Head [id number]/7/2018 10:32:52 PM Ordering Physician: Yovanny Shankar Final Report: INDICATION: Tripped and fell, hit forehead and nose TECHNIQUE: CT Head without i.v. contrast. CONTRAST: None COMPARISON: 01/05/2018 FINDINGS: CSF spaces: Mild ex vacuo dilatation of the left lateral ventricle is noted. Brain: No evidence of mass, acute infarction or hemorrhage is seen. No mass- effect or midline shift is seen. Mild diffuse cortical atrophy is noted. The brain parenchyma is otherwise normal in appearance with preservation of the leslie -white matter junction. Calvarium: The visualized paranasal sinuses are well aerated. The mastoid air cells are clear. The visualized orbits are grossly unremarkable. The calvarium is unremarkable in appearance with no fractures identified. Miscellaneous: Focal encephalomalacia is present along the medial left frontal parietal region. IMPRESSION: 1. No evidence of acute infarction, intracranial hemorrhage, or mass-effect seen. Dictated by Yogi Núñez MD @ 02/13/2018 10:51:05 PM Please note that all CT scans at this facility use dose modulation, iterative reconstruction, and/or weight-based dosing when appropriate to reduce radiation dose to as low as reasonably achievable. Dictated by: Yogi Núñez MD @ 02/13/2018 22:51:07 (Electronic Signature) Report Signed by Proxy. ALEXI
== END 2018-02-13 23:28 | disposition home or self-care (01) ==
LOC: MW.ED 21:15
DX: S09.90XA Unspecified injury of head, initial encounter (principal); S49.92XA Unspecified injury of left shoulder and upper arm, initial encounter; I10 Essential (primary) hypertension; E78.00 Pure hypercholesterolemia, unspecified; Z87.891 Personal history of nicotine dependence; Z86.73 Personal history of transient ischemic attack (TIA), and cerebral infarction without residual deficits; W18.09XA Striking against other object with subsequent fall, initial encounter; Z79.01 Long term (current) use of anticoagulants; Z79.899 Other long term (current) drug therapy; Z23 Encounter for immunization
CPT/HCPCS: 70450; 70450-26; 70486; 70486-26; 73030-26-LT; 73030-LT; 90471; 90714; 99284; 99284-25

== ENCOUNTER 2019-04-26 14:00 | Observation (INO) | payer MEDICARE, BC ==
[2019-04-26] MEDS ORDERED: Sodium Chloride 0.9% 10 ML Syringe FLUSH PRN (14:06)
[2019-04-26] MEDS ORDERED: Sodium Chloride 0.9% 2.5 ML Syringe FLUSH PRN (14:06)
[2019-04-26] MEDS ORDERED: Sodium Chloride 0.9% 10 ML SDV IV PRN (14:06)
--- NOTE | 2019-04-26 14:06 | EDM.PDOC ---
ED HPI GENERAL MEDICAL PROBLEM - General Chief Complaint: Neuro Symptoms/Deficits Stated Complaint: STROKE Time Seen by Provider: 04/26/19 14:05 Source of Information: Reports: Patient History Limitations: Reports: No Limitations - History of Present Illness INITIAL COMMENTS - FREE TEXT/NARRATIVE: History of present illness: []Patient has a history of TIAs and started having numbness and tingling in his right arm and leg at 8:00 this morning. Patient declined headache, change in speech, nausea, vomiting, chest pain or shortness of breath. Did have mild blurry vision. Review of systems: As per history of present illness and below otherwise all systems reviewed and negative. Past medical history: As per history of present illness and as reviewed below otherwise noncontributory. Surgical history: As per history of present illness and as reviewed below otherwise noncontributory. Social history: No reported history of drug or alcohol abuse. Family history: As per history of present illness and as reviewed below otherwise noncontributory. Physical exam: General: Well developed, well nourished in NAD HEENT: Atraumatic, normocephalic, pupils reactive, negative for conjunctival pallor or scleral icterus, mucous membranes moist, throat clear, neck supple, nontender, trachea midline. Lungs: Clear to auscultation, breath sounds equal bilaterally, chest nontender. Heart: S1S2, regular, negative for clicks, rubs, or JVD. Abdomen: NABS, Soft, nondistended, nontender. Negative for masses or hepatosplenomegaly. Negative for costovertebral tenderness. Pelvis: Stable nontender. Genitourinary: Deferred. Rectal: Deferred. Extremities: Atraumatic, negative for cords or calf pain. Neurovascular unremarkable. Neuro: Awake, alert, oriented. Right facial droop, Cerebellum unremarkable. Right arm and leg weakness with drift Skin:warm and dry NIH=3 Diagnostics: CT head, CBC, chemistry, TSH, troponin, chest x-ray, EKG Therapeutics: None ED Course: Consulted Dr. Garcia saw him at the bedside and recommended admitting the patient here for further workup given he is well out of the time window for any treatment. To hospitalist Impression: CVA Prescriptions: None Plan: Admit to the hospitalist service for workup Dr. Garcia on consult Definitive disposition and diagnosis as appropriate pending reevaluation and review of above. - Related Data Allergies Allergy/AdvReac Type Severity Reaction Status Date / Time No Known Allergies Allergy Verified 04/26/19 16:16 Home Meds: Home Meds Atenolol 12 mg PO ASDIRECTED 08/01/14 [History] Clopidogrel [Plavix] 75 mg PO DAILY 08/01/14 [History] Aspirin [Halfprin] 1 tab PO DAILY 12/20/14 [History] Lutein/Minerals/Vit A,C & E [Ocuvite] 1 tab PO DAILY 07/18/16 [History] Rosuvastatin Calcium [Crestor] 40 mg PO DAILY 01/05/18 [History] Lisinopril 10 mg PO DAILY #30 tablet 01/07/18 [Rx] Past Medical History HEENT History: Reports: Cataract Other HEENT History: wears glasses Cardiovascular History: Reports: High Cholesterol, Hypertension Respiratory History: Reports: None Other Respiratory History: FORMER SMOKER Gastrointestinal History: Reports: None Genitourinary History: Reports: BPH Musculoskeletal History: Reports: Amputation, Arthritis Other Musculoskeletal History: amputation of right thumb Neurological History: Reports: CVA Other Neuro History: 2008, still taking Plavix Psychiatric History: Reports: None Endocrine/Metabolic History: Reports: None Hematologic History: Reports: None Immunologic History: Reports: None Oncologic (Cancer) History: Reports: Other (See Below) Other Oncologic History: some type of skin cancer removed from chest Dermatologic History: Reports: None - Infectious Disease History Infectious Disease History: Reports: Chicken Pox, Measles, Mumps - Past Surgical History Head Surgeries/Procedures: Reports: None HEENT Surgical History: Reports: Eye Surgery Social & Family History - Family History Family Medical History: Noncontributory - Caffeine Use Caffeine Use: Reports: Coffee ED ROS GENERAL - Review of Systems Review Of Systems: See Below ED EXAM, NEURO - Physical Exam Exam: See Below Course - Vital Signs Last Recorded V/S: Last Vital Signs Temp 98.2 F 04/27/19 12:00 Pulse 59 L 04/27/19 12:00 Resp 16 04/27/19 12:00 BP 157/80 H 04/27/19 12:00 Pulse Ox 96 04/27/19 08:00 - Orders/Labs/Meds Labs: Laboratory Tests 04/26/19 04/26/19 04/26/19 Range/Units 14:20 14:20 14:20 WBC 6.57 (4.0-11.0) K/uL RBC 3.90 L (4.50-5.90) M/uL Hgb 12.6 L (13.0-17.0) g/dL Hct 37.6 L (38.0-50.0) % MCV 96.4 (80.0-98.0) fL MCH 32.3 H (27.0-32.0) pg MCHC 33.5 (31.0-37.0) g/dL RDW Std Deviation 49.3 (28.0-62.0) fl RDW Coeff of Cat 14 (11.0-15.0) % Plt Count 200 (150-400) K/uL MPV 11.10 (7.40-12.00) fL Neut % (Auto) 63.3 (48.0-80.0) % Lymph % (Auto) 26.2 (16.0-40.0) % [place] % (Auto) 8.1 (0.0-15.0) % Eos % (Auto) 2.1 (0.0-7.0) % Baso % (Auto) 0.3 (0.0-1.5) % Neut # (Auto) 4.2 (1.4-5.7) K/uL Lymph # (Auto) 1.7 (0.6-2.4) K/uL [place] # (Auto) 0.5 (0.0-0.8) K/uL Eos # (Auto) 0.1 (0.0-0.7) K/uL Baso # (Auto) 0.0 (0.0-0.1) K/uL Nucleated RBC % 0.0 /100WBC Nucleated RBCs # 0 K/uL INR 1.00 APTT 24.5 (18.6-31.3) SEC Sodium 141 (136-148) mmol/L Potassium 3.9 (3.5-5.1) mmol/L Chloride 105 (98-107) mmol/L Carbon Dioxide 26.2 (21.0-32.0) mmol/L BUN 23 H (7.0-18.0) mg/dL Creatinine 0.9 (0.8-1.3) mg/dL Est Cr Clr Drug Dosing TNP Estimated GFR (MDRD) > 60.0 ml/min Glucose 99 (74-106) mg/dL Calcium 9.6 (8.5-10.1) mg/dL Total Bilirubin 0.8 (0.2-1.0) mg/dL AST 16 (15-37) IU/L ALT 16 (14-63) IU/L Alkaline Phosphatase 69 (46-116) U/L Troponin I < 0.050 (0.000-0.056) ng/mL Total Protein 7.0 (6.4-8.2) g/dL Albumin 4.1 (3.4-5.0) g/dL Globulin 2.9 (2.6-4.0) g/dL Albumin/Globulin Ratio 1.4 (0.9-1.6) TSH 3rd Generation 0.93 (0.36-3.74) uIU/mL Meds: Medications Discontinued Medications Generic Name Dose Route Start Last Admin Trade Name Freq PRN Reason Stop Dose Admin Acetaminophen 650 mg 04/26/19 15:47 Tylenol PO Q4H PRN Pain (Mild 1-3)/fever Aspirin 81 mg 04/27/19 09:00 04/27/19 09:08 Halfprin PO 81 mg DAILY NASREEN Administration Clopidogrel Bisulfate 75 mg 04/27/19 09:00 04/27/19 09:08 Plavix PO 75 mg DAILY NASREEN Administration Gadobenate Dimeglumine 12 ml 04/26/19 18:35 04/26/19 18:36 Multihance IVPUSH 04/26/19 18:36 12 ml ONETIME STA Administration Heparin Sodium (Porcine) 5,000 units 04/26/19 21:30 04/27/19 09:10 Heparin Sodium SUBCUT 5,000 units Q12H NASREEN Administration Iopamidol 100 ml 04/26/19 18:56 04/26/19 19:19 Isovue Multipack-370 (76%) IVPUSH 04/26/19 18:57 100 ml ONETIME STA Administration Ondansetron HCl 4 mg 04/26/19 15:47 Zofran IVPUSH Q4H PRN Nausea Lutein/Minerals/Vit 1 each 04/27/19 09:00 04/27/19 09:10 A,C & E 1 Tab PO Not Given DAILY NASREEN Pneumococcal Polyvalent Vaccine 0.5 ml 04/26/19 17:47 04/27/19 13:02 Pneumovax 23 IM 04/26/19 17:48 0.5 ml .ONCE ONE Administration Pneumococcal Polyvalent Vaccine 0.5 ml 04/27/19 13:15 04/27/19 14:04 Pneumovax 23 IM 04/27/19 13:16 Not Given .ONCE ONE Rosuvastatin Calcium 40 mg 04/27/19 09:00 04/27/19 09:07 Crestor PO 40 mg DAILY NASREEN Administration Sodium Chloride 10 ml 04/26/19 14:06 Saline Flush FLUSH ASDIRECTED PRN Keep Vein Open Sodium Chloride 2.5 ml 04/26/19 14:06 Saline Flush FLUSH ASDIRECTED PRN Keep Vein Open Sodium Chloride 10 ml 04/26/19 14:06 Normal Saline IV ASDIRECTED PRN IV Use Departure - Departure Time of Disposition: 15:50 Disposition: Refer to Observation Condition: Good Clinical Impression: CVA (cerebral vascular accident) Qualifiers: CVA mechanism: unspecified Qualified Code(s): I63.9 - Cerebral infarction, unspecified - Discharge Information *PRESCRIPTION DRUG MONITORING PROGRAM REVIEWED*: Not Applicable *COPY OF PRESCRIPTION DRUG MONITORING REPORT IN PATIENT NEAL: Not Applicable
--- NOTE | 2019-04-26 14:35 | CT ---
Head CT Technique: Multiple axial sections through the brain were obtained. Intravenous contrast was not utilized. Comparison: No prior intracranial imaging. Findings: Old infarct is noted within the posterior left parietal region. There is mild ex vacuole enlargement of the left lateral ventricle. Diminished density is noted within portions of the periventricular and subcortical white matter which is most likely due to small vessel ischemic demyelination change. No other abnormal parenchymal densities are seen. No evidence of intracranial hemorrhage. No midline shift or mass effect is seen. Mild generalized atrophy is seen with greater central component. Bone window settings were reviewed which shows minimal areas of mucosal thickening within the ethmoid sinuses which is believed to be incidental. Mastoid sinuses are clear. No acute calvarial abnormality is seen. Mild atherosclerotic calcification is seen within the carotid siphon. Impression: Senescent change as described above. No acute intracranial abnormality is identified. Diagnostic code #2 MTDD
[2019-04-26 15:16] LABS: BLOOD UREA NITROGEN,BUN 23 mg/dL (7.0-18.0); CARBON DIOXIDE,CO2 26.2 mmol/L (21.0-32.0); CHLORIDE,CL 105 mmol/L (98-107); GLUCOSE RANDOM 99 mg/dL (74-106); POTASSIUM,K 3.9 mmol/L (3.5-5.1); SODIUM,NA 141 mmol/L (136-148)
[2019-04-26] MEDS ORDERED: Acetaminophen 325 MG Tab PO PRN (15:47)
[2019-04-26] MEDS ORDERED: Ondansetron 4 MG/2 ML SDV IVPUSH PRN (15:47)
--- NOTE | 2019-04-26 16:10 | PCM.HP.2 ---
H&P History of Present Illness - General Date of Service: 04/26/19 Admit Problem/Dx: Admission Diagnosis/Problem Admission Diagnosis/Problem CVA, Cerebrovascular accident Source of Information: Patient, Old Records History Limitations: Reports: No Limitations - History of Present Illness Initial Comments - Free Text/Narative: This 79 year old male with pmh of HTN, CVA in 2008, and dyslipidemia presented to the ED today with complaints of weakness to his right arm and leg. He reports it started this morning, and is stating it is still there now, but improving. He reports mild frontal headache, no vision complaints or new neck pain. reports chronic neck pain from arthritis. He denies olfactory changes, no hearing changes or facial droop. No swallowing concerns. No fevers chills or sore throat. No recent acute illness such as sinusitis. He denies chest pain or SOB. No cough. Denies abdominal pain or concerns with bowel or urinary troubles. He denies any memory concerns now. He otherwise has been doing well. he took his medications today, which include ASA and Plavix. In the ED, Labwork obtained is stable. INR 1.0. VS stable in the ED. EKG SR with no ectopy, LVH noted. Stroke code was called, he was evaluated by Dr Garcia, Neurology, found not to be TPA canidate. Head Ct reveals no acute intracranial abnormality, evidence of old infarcts noted. He was admitted for R sided weakness, rule out CVA. PCP, Dr Montano. - Related Data Allergies/Adverse Reactions: Allergies Allergy/AdvReac Type Severity Reaction Status Date / Time No Known Allergies Allergy Verified 04/26/19 16:16 Home Medications: Home Meds Atenolol 12 mg PO ASDIRECTED 08/01/14 [History] Clopidogrel [Plavix] 75 mg PO DAILY 08/01/14 [History] Aspirin [Halfprin] 1 tab PO DAILY 12/20/14 [History] Lutein/Minerals/Vit A,C & E [Ocuvite] 1 tab PO DAILY 07/18/16 [History] Rosuvastatin Calcium [Crestor] 40 mg PO DAILY 01/05/18 [History] Lisinopril 10 mg PO DAILY #30 tablet 01/07/18 [Rx] Past Medical History HEENT History: Reports: Cataract Other HEENT History: wears glasses Cardiovascular History: Reports: High Cholesterol, Hypertension. Denies: Afib, Blood Clots/VTE/DVT, CT, Stents, Syncope Respiratory History: Reports: None. Denies: Asthma, COPD Gastrointestinal History: Reports: None. Denies: GI Bleed Genitourinary History: Reports: BPH Musculoskeletal History: Reports: Amputation, Arthritis, Back Pain, Chronic, Neck Pain, Chronic Other Musculoskeletal History: amputation of right thumb Neurological History: Reports: CVA (2009) Psychiatric History: Reports: None Endocrine/Metabolic History: Reports: None. Denies: Diabetes, Type II, Hypothyroidism, Obesity/BMI 30+ Hematologic History: Reports: None Immunologic History: Reports: None Oncologic (Cancer) History: Reports: Malignant Melanoma (chest, was removed) Dermatologic History: Reports: None - Infectious Disease History Infectious Disease History: Reports: Chicken Pox, Measles, Mumps - Past Surgical History Head Surgeries/Procedures: Reports: None HEENT Surgical History: Reports: Eye Surgery Neurological Surgical History: Reports: Thoracic Spine Social & Family History - Family History Family Medical History: Noncontributory - Tobacco Use Smoking Status *Q: Former Smoker (quit in 2008) Second Hand Smoke Exposure: No - Caffeine Use Caffeine Use: Reports: Coffee - Alcohol Use Alcohol Use Frequency: Socially - Recreational Drug Use Recreational Drug Use: No - Living Situation & Occupation Living situation: Reports: Occupation: Retired H&P Review of Systems - Review of Systems: Review Of Systems: See Below General: Reports: Weakness (R sided arm and leg). Denies: Fever, Chills, Malaise HEENT: Reports: Glasses, Headaches (small frontal, no aura, no neck pain, no visual changes.), Vertigo (small amount intermittently). Denies: Dysphasia, Eye Pain, Hearing Changes, Sinus Congestion, Sore Throat Pulmonary: Reports: No Symptoms. Denies: Shortness of Breath, Cough, Sputum Cardiovascular: Reports: No Symptoms. Denies: Chest Pain, Lightheadedness Gastrointestinal: Reports: No Symptoms. Denies: Abdominal Pain, Nausea, Vomiting Genitourinary: Reports: No Symptoms. Denies: Dysuria, Frequency, Burning Musculoskeletal: Reports: No Symptoms Skin: Reports: No Symptoms Psychiatric: Reports: No Symptoms Neurological: Reports: Dizziness, Headache (frontal), Difficulty Walking, Gait Disturbance (balance and right sided weakness). Denies: Trouble Speaking Hematologic/Lymphatic: Reports: No Symptoms Immunologic: Reports: No Symptoms Exam - Exam Exam: See Below - Vital Signs Vital Signs: Last Vital Signs Temp 98.6 F 04/26/19 14:40 Pulse 59 L 04/26/19 15:36 Resp 13 04/26/19 15:36 BP 136/77 04/26/19 15:36 Pulse Ox 97 04/26/19 15:36 - Exam General: Alert, Oriented, Cooperative, Other (asking when he can go home tomorrow.) HEENT: Conjunctiva Clear, Mucosa Moist & [place], Posterior Pharynx Clear, PERRLA Neck: Supple, Trachea Midline, +2 Carotid Pulse wo Bruit, Full Range of Motion Lungs: Clear to Auscultation, Normal Respiratory Effort Cardiovascular: Regular Rate, Regular Rhythm, Normal S1, Normal S2. No: Irregular Rhythm, Tachycardia, Systolic Murmur GI/Abdominal Exam: Normal Bowel Sounds, Soft, Non-Tender Extremities: Normal Inspection, Normal Range of Motion, Non-Tender, No Pedal Edema Neurological: Cranial Nerves Intact, Normal Speech, Normal Tone, Abnormal Gait Neuro Extensive - Mental Status: Alert, Oriented x3, Normal Cognition, Memory Intact Neuro Extensive - Motor, Sensory, Reflexes: CN II-XII Intact, Abnormal Gait, Abnormal Romberg, Abnormal Heel to [place] Psychiatric: Alert, Normal Affect, Normal Mood - Patient Data Lab Results Last 24 hrs: Laboratory Results - last 24 hr 04/26/19 04/26/19 04/26/19 Range/Units 14:20 14:20 14:20 WBC 6.57 (4.0-11.0) K/uL RBC 3.90 L (4.50-5.90) M/uL Hgb 12.6 L (13.0-17.0) g/dL Hct 37.6 L (38.0-50.0) % MCV 96.4 (80.0-98.0) fL MCH 32.3 H (27.0-32.0) pg MCHC 33.5 (31.0-37.0) g/dL RDW Std Deviation 49.3 (28.0-62.0) fl RDW Coeff of Cat 14 (11.0-15.0) % Plt Count 200 (150-400) K/uL MPV 11.10 (7.40-12.00) fL Neut % (Auto) 63.3 (48.0-80.0) % Lymph % (Auto) 26.2 (16.0-40.0) % [place] % (Auto) 8.1 (0.0-15.0) % Eos % (Auto) 2.1 (0.0-7.0) % Baso % (Auto) 0.3 (0.0-1.5) % Neut # (Auto) 4.2 (1.4-5.7) K/uL Lymph # (Auto) 1.7 (0.6-2.4) K/uL [place] # (Auto) 0.5 (0.0-0.8) K/uL Eos # (Auto) 0.1 (0.0-0.7) K/uL Baso # (Auto) 0.0 (0.0-0.1) K/uL Nucleated RBC % 0.0 /100WBC Nucleated RBCs # 0 K/uL INR 1.00 APTT 24.5 (18.6-31.3) SEC Sodium 141 (136-148) mmol/L Potassium 3.9 (3.5-5.1) mmol/L Chloride 105 (98-107) mmol/L Carbon Dioxide 26.2 (21.0-32.0) mmol/L BUN 23 H (7.0-18.0) mg/dL Creatinine 0.9 (0.8-1.3) mg/dL Est Cr Clr Drug Dosing TNP Estimated GFR (MDRD) > 60.0 ml/min Glucose 99 (74-106) mg/dL Calcium 9.6 (8.5-10.1) mg/dL Total Bilirubin 0.8 (0.2-1.0) mg/dL AST 16 (15-37) IU/L ALT 16 (14-63) IU/L Alkaline Phosphatase 69 (46-116) U/L Troponin I < 0.050 (0.000-0.056) ng/mL Total Protein 7.0 (6.4-8.2) g/dL Albumin 4.1 (3.4-5.0) g/dL Globulin 2.9 (2.6-4.0) g/dL Albumin/Globulin Ratio 1.4 (0.9-1.6) TSH 3rd Generation 0.93 (0.36-3.74) uIU/mL Result Diagrams: 04/26/19 14:20 04/26/19 14:20 EKG INTERPRETATION EKG Date: 04/26/19 Rhythm: NSR Rate (Beats/Min): 70 P-Wave: Present QRS: Normal ST-T: Normal QT: Normal - Problem List (1) Right sided weakness SNOMED Code(s): 837849193 ICD Code: R53.1 - WEAKNESS Status: Acute Current Visit: Yes (2) History of CVA (cerebrovascular accident) SNOMED Code(s): 934863871 ICD Code: Z86.73 - PRSNL HX OF TIA (TIA), AND CEREB INFRC W/O RESID DEFICITS Status: Chronic Current Visit: Yes (3) HTN (hypertension) SNOMED Code(s): 14573063 ICD Code: I10 - ESSENTIAL (PRIMARY) HYPERTENSION Status: Chronic Current Visit: Yes (4) Dyslipidemia SNOMED Code(s): 021966507 ICD Code: E78.5 - HYPERLIPIDEMIA, UNSPECIFIED Status: Chronic Current Visit: Yes (5) CAD (coronary artery disease) SNOMED Code(s): 58139408 ICD Code: I25.10 - ATHSCL HEART DISEASE OF [place] CORONARY ARTERY W/O ANG PCTRS Status: Chronic Current Visit: Yes (6) Carotid stenosis Status: Chronic Current Visit: Yes Qualifiers: Laterality: left Qualified Code(s): I65.22 - Occlusion and stenosis of left carotid artery Problem List Initiated/Reviewed/Updated: Yes Orders Last 24hrs: Active Orders 24 hr Category Date Time Status Patient Status [ADT] Stat ADT 04/26/19 15:18 Active Assess Neurological Status [RC] ASDIRECTED Care 04/26/19 14:06 Active Bedrest [RC] ASDIRECTED Care 04/26/19 14:06 Active Cardiac Monitoring [RC] . DIRECTED Care 04/26/19 14:06 Active EKG Documentation Completion [RC] STAT Care 04/26/19 14:06 Active Height and Weight [RC] UPON Care 04/26/19 14:06 Active Initiate Acute Stroke Protocol [RC] STAT Care 04/26/19 14:06 Active Intake and Output [RC] QSHIFT Care 04/26/19 15:47 Active NIH Stroke Scale [RC] ASDIRECTED Care 04/26/19 14:06 Active Nursing Bedside Swallow Screen [RC] ASDIRECTED Care 04/26/19 14:06 Active Oxygen Therapy [RC] ASDIRECTED Care 04/26/19 14:06 Active Oxygen Therapy [RC] PRN Care 04/26/19 15:47 Active Stroke Education, General [RC] Click to Edit Care 04/26/19 14:06 Active Telemetry Monitoring [Cardiac Monitoring] [RC] . Care 04/26/19 15:42 Active DIRECTED Up With Assistance [RC] ASDIRECTED Care 04/26/19 15:47 Active VTE/DVT Education [RC] PER UNIT ROUTINE Care 04/26/19 15:47 Active Vital Signs [RC] Q15M Care 04/26/19 14:06 Active Vital Signs [RC] Q4H Care 04/26/19 15:47 Active Heart Healthy Diet [DIET] Diet 04/26/19 Dinner Active BASIC METABOLIC PANEL,BMP [CHEM] AM Lab 04/27/19 05:11 Ordered CBC WITH AUTO DIFF [HEME] AM Lab 04/27/19 05:11 Ordered LIPID PANEL [CHEM] AM Lab 04/27/19 05:11 Ordered MAGNESIUM [CHEM] AM Lab 04/27/19 05:11 Ordered Acetaminophen [Tylenol] Med 04/26/19 15:47 Active 650 mg PO Q4H PRN Ondansetron [Zofran] Med 04/26/19 15:47 Active 4 mg IVPUSH Q4H PRN Sodium Chloride 0.9% [Normal Saline] Med 04/26/19 14:06 Active 10 ml IV ASDIRECTED PRN Sodium Chloride 0.9% [Saline Flush] Med 04/26/19 14:06 Active 10 ml FLUSH ASDIRECTED PRN Sodium Chloride 0.9% [Saline Flush] Med 04/26/19 14:06 Active 2.5 ml FLUSH ASDIRECTED PRN Peripheral IV Insertion Adult [OM.PC] Stat Oth 04/26/19 14:06 Ordered Peripheral IV Insertion Adult [OM.PC] Stat Oth 04/26/19 14:06 Ordered Medication Orders Acetaminophen (Tylenol) 650 mg PO Q4H PRN PRN Reason: Pain (Mild 1-3)/fever Ondansetron HCl (Zofran) 4 mg IVPUSH Q4H PRN PRN Reason: Nausea Sodium Chloride (Saline Flush) 10 ml FLUSH ASDIRECTED PRN PRN Reason: Keep Vein Open Sodium Chloride (Saline Flush) 2.5 ml FLUSH ASDIRECTED PRN PRN Reason: Keep Vein Open Sodium Chloride (Normal Saline) 10 ml IV ASDIRECTED PRN PRN Reason: IV Use Assessment/Plan Comment:: This 79 year old male admitted with R sided weakness, concerning for CVA 1. Rule out CVA: Consult Dr Garcia. We discussed past workup with MRI and carotid duplex, ultimately needing CTA of neck in [place] which revealed carotid stenosis of L less than 50% and enlargement of L carotid bulb. Will obtain MRI of brain along with CTA of neck and head. Will obtain ECHO. Obtain A1c and lipid panel in am. Continue Crestor 40 mg, ASA and Plavix. Allow for permissive HTN, holding Atenolol and Lisinopril for now. Monitor on telemetry. Consult PT/ OT/ST. No current swallowing concerns but reports this "has been an issue for awhile". 2. HTN: Allow permissive HTN now, hold home medications and monitor VTE prophylaxis: Heparin Q12h Dispo: 1-2 days pending improvement. - Mortality Measure Prognosis:: Good
--- NOTE | 2019-04-26 17:05 | PCM.CONS ---
H&P History of Present Illness - General Date of Service: 04/26/19 Admit Problem/Dx: Admission Diagnosis/Problem Admission Diagnosis/Problem CVA, Cerebrovascular accident 79 year old man presenting to ED with right sided weakness. He notes feeling fine when he woke up in the morning. At about 8:30 am, he noted that he didnt feel right, and his right leg was weaker than normal. He endorses some right upper limb weakness, but not as severe. His balance impaired at baseline, which may or may not be worse. He has mild headache earlier today, not currently. No recent illness. He had a stroke in 2008. He has had minimal residual weakness/abnormal sensation in his right leg since that time. He is on ASA and Plavix. - Related Data Allergies/Adverse Reactions: Allergies Allergy/AdvReac Type Severity Reaction Status Date / Time No Known Allergies Allergy Verified 04/26/19 16:16 Home Medications: Home Meds Atenolol 12 mg PO ASDIRECTED 08/01/14 [History] Clopidogrel [Plavix] 75 mg PO DAILY 08/01/14 [History] Aspirin [Halfprin] 1 tab PO DAILY 12/20/14 [History] Lutein/Minerals/Vit A,C & E [Ocuvite] 1 tab PO DAILY 07/18/16 [History] Rosuvastatin Calcium [Crestor] 40 mg PO DAILY 01/05/18 [History] Lisinopril 10 mg PO DAILY #30 tablet 01/07/18 [Rx] Past Medical History HEENT History: Reports: Cataract Other HEENT History: wears glasses Cardiovascular History: Reports: High Cholesterol, Hypertension. Denies: Afib, Blood Clots/VTE/DVT, [place], Stents, Syncope Respiratory History: Reports: None. Denies: Asthma, COPD Other Respiratory History: FORMER SMOKER Gastrointestinal History: Reports: None. Denies: GI Bleed Genitourinary History: Reports: BPH Musculoskeletal History: Reports: Amputation, Arthritis, Back Pain, Chronic, Neck Pain, Chronic Other Musculoskeletal History: amputation of right thumb Neurological History: Reports: CVA (2008) Other Neuro History: 2008, still taking Plavix Psychiatric History: Reports: None Endocrine/Metabolic History: Reports: None. Denies: Diabetes, Type II, Hypothyroidism, Obesity/BMI 30+ Hematologic History: Reports: None Immunologic History: Reports: None Oncologic (Cancer) History: Reports: Malignant Melanoma (chest, was removed) Other Oncologic History: some type of skin cancer removed from chest Dermatologic History: Reports: None - Infectious Disease History Infectious Disease History: Reports: Chicken Pox, Measles, Mumps - Past Surgical History Head Surgeries/Procedures: Reports: None HEENT Surgical History: Reports: Eye Surgery Neurological Surgical History: Reports: Thoracic Spine Social & Family History - Family History Family Medical History: Noncontributory - Tobacco Use Smoking Status *Q: Former Smoker (quit in 2008) Second Hand Smoke Exposure: No - Caffeine Use Caffeine Use: Reports: Coffee - Recreational Drug Use Recreational Drug Use: No - Living Situation & Occupation Living situation: Reports: Occupation: Retired H&P Review of Systems - Review of Systems: Review Of Systems: See Below General: Reports: No Symptoms HEENT: Reports: Headaches Pulmonary: Reports: No Symptoms Cardiovascular: Reports: No Symptoms Gastrointestinal: Reports: No Symptoms Genitourinary: Reports: No Symptoms Neurological: Reports: Weakness, Gait Disturbance Exam - Exam Exam: See Below - Vital Signs Vital Signs: Last Vital Signs Temp 37.0 C 04/26/19 14:40 Pulse 59 L 04/26/19 15:36 Resp 13 04/26/19 15:36 BP 136/77 04/26/19 15:36 Pulse Ox 97 04/26/19 15:36 - Exam Physical Exam Comments:: Constitutional: No acute distress Psychiatric: Mood/Affect: normal/appropriate Neurological: Mental Status: General: Normal activity, good hygiene, appropriate appearance. Level of consciousness: Awake, alert. No neglect Naming and repetition intact Cranial Nerves: Visual conti full to confrontation. Gaze conjugate, EOMI. Sensation intact and symmetric to light touch. Mild right facial droop. Mild palate dysarthria. Normal shrug bilaterally. Tongue protrudes midline Motor: Normal tone in all groups. RUE and RLE drift. Otherwise 5/5 throughout proximal and distal muscles. Sensation: Sensation is intact to temp and light touch bilateral upper and lower limbs. Deep tendon reflexes: Normoactive throughout upper limbs, absent at knees. Coordination: Finger to nose slow on the right. intact. Gait: Unsteady with standing. HEENT: Eyes: non icteric, Mouth: moist mucus membranes Cardiovascular: RRR, no obvious murmur Respiratory: clear lungs GI: non tender Musculoskeletal: non tender Skin: no visible rash CT head encephalomalacia left MCA territory - Patient Data Lab Results Last 24 hrs: Laboratory Results - last 24 hr 04/26/19 04/26/19 04/26/19 Range/Units 14:20 14:20 14:20 WBC 6.57 (4.0-11.0) K/uL RBC 3.90 L (4.50-5.90) M/uL Hgb 12.6 L (13.0-17.0) g/dL Hct 37.6 L (38.0-50.0) % MCV 96.4 (80.0-98.0) fL MCH 32.3 H (27.0-32.0) pg MCHC 33.5 (31.0-37.0) g/dL RDW Std Deviation 49.3 (28.0-62.0) fl RDW Coeff of Cat 14 (11.0-15.0) % Plt Count 200 (150-400) K/uL MPV 11.10 (7.40-12.00) fL Neut % (Auto) 63.3 (48.0-80.0) % Lymph % (Auto) 26.2 (16.0-40.0) % [place] % (Auto) 8.1 (0.0-15.0) % Eos % (Auto) 2.1 (0.0-7.0) % Baso % (Auto) 0.3 (0.0-1.5) % Neut # (Auto) 4.2 (1.4-5.7) K/uL Lymph # (Auto) 1.7 (0.6-2.4) K/uL [place] # (Auto) 0.5 (0.0-0.8) K/uL Eos # (Auto) 0.1 (0.0-0.7) K/uL Baso # (Auto) 0.0 (0.0-0.1) K/uL Nucleated RBC % 0.0 /100WBC Nucleated RBCs # 0 K/uL INR 1.00 APTT 24.5 (18.6-31.3) SEC Sodium 141 (136-148) mmol/L Potassium 3.9 (3.5-5.1) mmol/L Chloride 105 (98-107) mmol/L Carbon Dioxide 26.2 (21.0-32.0) mmol/L BUN 23 H (7.0-18.0) mg/dL Creatinine 0.9 (0.8-1.3) mg/dL Est Cr Clr Drug Dosing TNP Estimated GFR (MDRD) > 60.0 ml/min Glucose 99 (74-106) mg/dL Calcium 9.6 (8.5-10.1) mg/dL Total Bilirubin 0.8 (0.2-1.0) mg/dL AST 16 (15-37) IU/L ALT 16 (14-63) IU/L Alkaline Phosphatase 69 (46-116) U/L Troponin I < 0.050 (0.000-0.056) ng/mL Total Protein 7.0 (6.4-8.2) g/dL Albumin 4.1 (3.4-5.0) g/dL Globulin 2.9 (2.6-4.0) g/dL Albumin/Globulin Ratio 1.4 (0.9-1.6) TSH 3rd Generation 0.93 (0.36-3.74) uIU/mL Result Diagrams: 04/26/19 14:20 04/26/19 14:20 Consult PN Assessment/Plan Procedures: Procedures ASSAY OF MAGNESIUM (08/01/14) ASSAY OF PSA TOTAL (03/05/17) ASSAY OF TROPONIN QUANT (01/05/18) ASSAY THYROID STIM HORMONE (01/05/18) CHEST X-RAY 1 VIEW FRONTAL (07/20/15) COLONOSCOPY AND BIOPSY (12/22/14) COMPLETE CBC AUTOMATED (05/04/14) COMPLETE CBC W/AUTO DIFF WBC (01/05/18) COMPREHEN METABOLIC PANEL (01/05/18) CT HEAD/BRAIN W/O DYE (02/13/18) CT MAXILLOFACIAL W/O DYE (02/13/18) DESTRUCT PREMALG LES 2-14 (05/24/14) DESTRUCT PREMALG LESION (05/24/14) ELECTROCARDIOGRAM TRACING (01/05/18) EMERGENCY DEPT VISIT (02/13/18) EMERGENCY DEPT VISIT (01/05/18) EMERGENCY DEPT VISIT (08/01/14) EMERGENCY DEPT VISIT (08/01/14) EXTRACRANIAL BILAT STUDY (01/05/18) GLYCOSYLATED HEMOGLOBIN TEST (01/05/18) IMMUNIZATION ADMIN (02/13/18) LIPID PANEL (01/05/18) MR ANGIOGRAPHY HEAD W/O DYE (01/05/18) MR ANGIOGRAPHY NECK W/O DYE (01/05/18) MRI BRAIN STEM W/O & W/DYE (01/05/18) OFFICE/OUTPATIENT VISIT EST (05/24/14) OFFICE/OUTPATIENT VISIT EST (05/04/14) OFFICE/OUTPATIENT VISIT NEW (12/11/14) PROTHROMBIN TIME (01/05/18) ROUTINE VENIPUNCTURE (01/05/18) TD VACC NO PRESV 7 YRS+ IM (02/13/18) THER/PROPH/DIAG INJ SC/IM (08/01/14) THROMBOPLASTIN TIME PARTIAL (01/05/18) TISSUE EXAM BY PATHOLOGIST (12/22/14) TREATMENT OF URETHRA LESION (07/22/16) TTE W/DOPPLER COMPLETE (01/05/18) URINALYSIS AUTO W/SCOPE (05/07/16) US EXAM ABDOM COMPLETE (05/09/14) X-RAY EXAM OF SHOULDER (02/13/18) (1) History of CVA (cerebrovascular accident) SNOMED Code(s): 378314745 Code(s): Z86.73 - PRSNL HX OF TIA (TIA), AND CEREB INFRC W/O RESID DEFICITS Current Visit: Yes (2) Right sided weakness SNOMED Code(s): 204389676 Code(s): R53.1 - WEAKNESS Current Visit: Yes Assessment:: 79 year old man with history of multiple strokes, on ASA/Plavix and statin admitted with subjective increased right leg>arm weakness , new stroke/TIA vs recrudescence of old stroke deficits. NIHSS 4, but at least some of these deficits may be chronic. He is not a candidate for TPA as presentation > 4.5 hr window, not a good candidate for thrombectomy as NIHSS < 6. Rec: MRI brain w contrast CTA head and neck (discussed with Zulay Vargas NP; prior carotid US and MRA overestimated stenosis) Continue statin, ASA, Plavix PT to eval gait Problem List Initiated/Reviewed/Updated: Yes
[2019-04-26] MEDS ORDERED: Pneumococcal Polyvalent-23 Vaccine 0.5 ML SDV IM ONE (17:47)
[2019-04-26] MEDS ORDERED: Gadobenate Dimeglumine 529 MG/ML 20 ML SDV IVPUSH STA (18:35)
[2019-04-26] MEDS ORDERED: Iopamidol 755 MG/ML 200 ML Multipack Bottle IVPUSH STA (18:56)
--- NOTE | 2019-04-26 19:38 | MR ---
INDICATION: Right-sided weakness. TECHNIQUE: Multiplanar multisequence MR images were obtained through the brain prior to and following administration of intravenous contrast. COMPARISON: None. FINDINGS: Multiple punctate foci of diffusion restriction within the left greater than right cerebral hemispheres, predominantly involving the high left frontal and left parietal lobes, compatible with acute infarctions. Notable infarcts involve the junction of the left precentral and postcentral gyri, left middle frontal gyrus, posterior left parietal lobe, left periatrial white matter, and anterior right frontal lobe. Stippled high diffusion weighted signal within the medial left precentral gyrus (series 704 image 184) and posterior left occipital lobe is without hypointense ADC signal and may represent subacute infarcts. Moderate-sized region of volume loss and confluent T2 FLAIR hyperintensity within the posterior left frontal and anterior left parietal lobe, compatible with chronic infarction. Associated ex vacuo dilatation of the left lateral ventricle. Prominence of ventricles and sulci compatible with mild to moderate diffuse cerebral volume loss. Patchy and scattered T2 FLAIR hyperintensities in the supratentorial white matter, nonspecific, though typical for sequelae of moderate chronic microvascular ischemic changes with superimposed chronic lacunar infarctions in the bilateral basal ganglia. Chronic lacunar infarction in the posterior right cerebellar hemisphere. And left yanci jonathan. No intracranial hemorrhage or pathologic extra-axial fluid collection. No pathologic intracranial enhancement. The major arterial flow voids of the skullbase are preserved. Thinning of the ocular lenses. Trace mucosal thickening in the ethmoid air cells. The mastoid air cells are clear. IMPRESSION: 1. Multiple punctate acute infarctions within the left greater than right cerebral hemispheres, predominantly involving the high left frontal and parietal lobes. 2. Stippled diffusion signal abnormality within the medial left precentral gyrus and posterior left occipital lobe may represent small subacute infarctions. 3. Moderate-sized chronic infarction involving the posterior left frontal and anterior left parietal lobes. Chronic lacunar infarctions in the bilateral basal ganglia, left hemipons, and right cerebellar hemisphere. 4. Moderate chronic microvascular ischemic changes. 5. [id number] diffuse cerebral volume loss. Dictated by Vincent Vaca MD @ Apr 26 2019 7:16PM Signed by Dr. Vincent Vaca @ Apr 26 2019 7:36PM
--- NOTE | 2019-04-26 19:59 | CT ---
INDICATION: Right-sided weakness, left carotid stenosis. TECHNIQUE: High resolution axial CT images acquired through the head and neck following rapid intravenous administration of iodinated contrast. Multiplanar MIPS of cranial and cervical vasculature performed. COMPARISON: MRI 04/26/2019. FINDINGS: CTA head: There is normal filling of the intracranial vasculature; i.e. there is no large vessel occlusion or significant intracranial stenosis. There is no cerebral aneurysm or evidence for vascular malformation. There is extensive white matter hypoattenuation commonly seen with chronic small vessel ischemic disease. There is an area of encephalomalacia in the left parietal lobe consistent with previous infarction. The known recent infarcts are better delineated at recent MRI. CTA neck: Large soft plaque is present in the proximal internal carotids bilaterally. On the left, the plaque has a very large ulceration within it, measuring over 10 mm. The actual stenosis is mild, less than 50 percent by NASCET criteria. There is no intraluminal thrombus. There is no dissection. The carotid and vertebral arteries are extremely tortuous and redundant. IMPRESSION: Large soft plaque in the proximal internal carotids bilaterally, with a very large ulceration (greater than 10 mm) on the left; the degree of stenosis is mild, less than 50 percent by NASCET criteria. No intracranial large vessel occlusion. Thomas May MD Neurointerventional Radiologist [facility] Please note that all CT scans at this facility use dose modulation, iterative reconstruction, and/or weight-based dosing when appropriate to reduce radiation dose to as low as reasonably achievable. Dictated by Thomas May MD @ Apr 27 2019 10:39AM Signed by Dr. Thomas May @ Apr 27 2019 12:34PM
[2019-04-26] MEDS: Heparin Sodium 5,000 Units/ML Vial SUBCUT SCH (20:39)
[2019-04-27 06:57] LABS: BLOOD UREA NITROGEN,BUN 21 mg/dL (7.0-18.0); CARBON DIOXIDE,CO2 25.5 mmol/L (21.0-32.0); CHLORIDE,CL 106 mmol/L (98-107); GLUCOSE RANDOM 93 mg/dL (74-106); POTASSIUM,K 4.3 mmol/L (3.5-5.1); SODIUM,NA 140 mmol/L (136-148)
[2019-04-27 06:59] LABS: HEMOGLOBIN A1C 5.5 % (4.5-6.2)
--- NOTE | 2019-04-27 08:01 | PCM.CONSN ---
- General Info Date of Service: 04/27/19 Admission Dx/Problem (Free Text): Admission Diagnosis/Problem Admission Diagnosis/Problem CVA, Cerebrovascular accident Subjective Update: He notes that he is still wobbly when walking, not at baseline. Right leg is still a little weak. - Patient Data Vitals - Most Recent: Last Vital Signs Temp 36.3 C 04/27/19 04:00 Pulse 55 L 04/27/19 04:00 Resp 18 04/27/19 04:00 BP 123/73 04/27/19 04:00 Pulse Ox 96 04/27/19 04:00 Weight - Most Recent: 64.093 kg I&O - Last 24 Hours: Intake & Output 04/26/19 04/27/19 04/27/19 22:59 06:59 14:59 Intake Total 500 Output Total 1000 Balance -500 Imaging Impressions - Last 24 Hours: Labs 04/27/2019 LDL 60 MRI brain 04/26/2019 scattered areas of restricted diffusion in the left hemisphere, a few with and a few without ADC changes indicating acute and subacute infarcts, a tiny area of restricted diffusion is noted in the right frontal lobe CTA head and neck saccular pseduoaneurysnm of the origin of the L ICA, < 50 % stenosis of the distal left carotid bulb Lab Results Last 24 Hours: Laboratory Results - last 24 hr 04/26/19 04/26/19 04/26/19 Range/Units 14:20 14:20 14:20 WBC 6.57 (4.0-11.0) K/uL RBC 3.90 L (4.50-5.90) M/uL Hgb 12.6 L (13.0-17.0) g/dL Hct 37.6 L (38.0-50.0) % MCV 96.4 (80.0-98.0) fL MCH 32.3 H (27.0-32.0) pg MCHC 33.5 (31.0-37.0) g/dL RDW Std Deviation 49.3 (28.0-62.0) fl RDW Coeff of Cat 14 (11.0-15.0) % Plt Count 200 (150-400) K/uL MPV 11.10 (7.40-12.00) fL Neut % (Auto) 63.3 (48.0-80.0) % Lymph % (Auto) 26.2 (16.0-40.0) % [place] % (Auto) 8.1 (0.0-15.0) % Eos % (Auto) 2.1 (0.0-7.0) % Baso % (Auto) 0.3 (0.0-1.5) % Neut # (Auto) 4.2 (1.4-5.7) K/uL Lymph # (Auto) 1.7 (0.6-2.4) K/uL [place] # (Auto) 0.5 (0.0-0.8) K/uL Eos # (Auto) 0.1 (0.0-0.7) K/uL Baso # (Auto) 0.0 (0.0-0.1) K/uL Nucleated RBC % 0.0 /100WBC Nucleated RBCs # 0 K/uL INR 1.00 APTT 24.5 (18.6-31.3) SEC Sodium 141 (136-148) mmol/L Potassium 3.9 (3.5-5.1) mmol/L Chloride 105 (98-107) mmol/L Carbon Dioxide 26.2 (21.0-32.0) mmol/L BUN 23 H (7.0-18.0) mg/dL Creatinine 0.9 (0.8-1.3) mg/dL Est Cr Clr Drug Dosing TNP Estimated GFR (MDRD) > 60.0 ml/min Glucose 99 (74-106) mg/dL Hemoglobin A1c (4.5-6.2) % Calcium 9.6 (8.5-10.1) mg/dL Magnesium (1.8-2.4) mg/dL Total Bilirubin 0.8 (0.2-1.0) mg/dL AST 16 (15-37) IU/L ALT 16 (14-63) IU/L Alkaline Phosphatase 69 (46-116) U/L Troponin I < 0.050 (0.000-0.056) ng/mL Total Protein 7.0 (6.4-8.2) g/dL Albumin 4.1 (3.4-5.0) g/dL Globulin 2.9 (2.6-4.0) g/dL Albumin/Globulin Ratio 1.4 (0.9-1.6) Triglycerides (0-200) mg/dL Cholesterol (50-200) mg/dL LDL Cholesterol, Calc (60-180) mg/dL VLDL Cholesterol (5-55) mg/dL HDL Cholesterol (40-60) mg/dL Cholesterol/HDL Ratio (3.3-6.0) TSH 3rd Generation 0.93 (0.36-3.74) uIU/mL 04/27/19 04/27/19 04/27/19 Range/Units 05:51 05:51 05:51 WBC 5.25 (4.0-11.0) K/uL RBC 3.68 L (4.50-5.90) M/uL Hgb 11.8 L (13.0-17.0) g/dL Hct 35.6 L (38.0-50.0) % MCV 96.7 (80.0-98.0) fL MCH 32.1 H (27.0-32.0) pg MCHC 33.1 (31.0-37.0) g/dL RDW Std Deviation 49.3 (28.0-62.0) fl RDW Coeff of Cat 14 (11.0-15.0) % Plt Count 188 (150-400) K/uL MPV 11.30 (7.40-12.00) fL Neut % (Auto) 54.6 (48.0-80.0) % Lymph % (Auto) 28.8 (16.0-40.0) % [place] % (Auto) 11.0 (0.0-15.0) % Eos % (Auto) 4.8 (0.0-7.0) % Baso % (Auto) 0.8 (0.0-1.5) % Neut # (Auto) 2.9 (1.4-5.7) K/uL Lymph # (Auto) 1.5 (0.6-2.4) K/uL [place] # (Auto) 0.6 (0.0-0.8) K/uL Eos # (Auto) 0.3 (0.0-0.7) K/uL Baso # (Auto) 0.0 (0.0-0.1) K/uL Nucleated RBC % 0.0 /100WBC Nucleated RBCs # 0 K/uL INR APTT (18.6-31.3) SEC Sodium 140 (136-148) mmol/L Potassium 4.3 (3.5-5.1) mmol/L Chloride 106 (98-107) mmol/L Carbon Dioxide 25.5 (21.0-32.0) mmol/L BUN 21 H (7.0-18.0) mg/dL Creatinine 1.0 (0.8-1.3) mg/dL Est Cr Clr Drug Dosing 54.30 Estimated GFR (MDRD) > 60.0 ml/min Glucose 93 (74-106) mg/dL Hemoglobin A1c 5.5 (4.5-6.2) % Calcium 9.0 (8.5-10.1) mg/dL Magnesium 2.1 (1.8-2.4) mg/dL Total Bilirubin (0.2-1.0) mg/dL AST (15-37) IU/L ALT (14-63) IU/L Alkaline Phosphatase (46-116) U/L Troponin I (0.000-0.056) ng/mL Total Protein (6.4-8.2) g/dL Albumin (3.4-5.0) g/dL Globulin (2.6-4.0) g/dL Albumin/Globulin Ratio (0.9-1.6) Triglycerides 73 (0-200) mg/dL Cholesterol 133 (50-200) mg/dL LDL Cholesterol, Calc 60 (60-180) mg/dL VLDL Cholesterol 14 (5-55) mg/dL HDL Cholesterol 58 (40-60) mg/dL Cholesterol/HDL Ratio 2.3 L (3.3-6.0) TSH 3rd Generation (0.36-3.74) uIU/mL Med Orders - Current: Current Medications Acetaminophen (Tylenol) 650 mg PO Q4H PRN PRN Reason: Pain (Mild 1-3)/fever Aspirin (Halfprin) 81 mg PO DAILY [facility] [place] Clopidogrel Bisulfate (Plavix) 75 mg PO DAILY [facility] [place] Heparin Sodium (Porcine) (Heparin Sodium) 5,000 units SUBCUT Q12H [facility] [place] Last Admin: 04/26/19 20:39 Dose: 5,000 units Ondansetron HCl (Zofran) 4 mg IVPUSH Q4H PRN PRN Reason: Nausea Lutein/Minerals/Vit (A,C & E 1 Tab) 1 each PO DAILY [facility] [place] Rosuvastatin Calcium (Crestor) 40 mg PO DAILY [facility] Sodium Chloride (Saline Flush) 10 ml FLUSH ASDIRECTED PRN PRN Reason: Keep Vein Open Sodium Chloride (Saline Flush) 2.5 ml FLUSH ASDIRECTED PRN PRN Reason: Keep Vein Open Sodium Chloride (Normal Saline) 10 ml IV ASDIRECTED PRN PRN Reason: IV Use Discontinued Medications Gadobenate Dimeglumine (Multihance) 12 ml IVPUSH ONETIME STA Stop: 04/26/19 18:36 Last Admin: 04/26/19 18:36 Dose: 12 ml Iopamidol (Isovue Multipack-370 (76%)) 100 ml IVPUSH ONETIME STA Stop: 04/26/19 18:57 Last Admin: 04/26/19 19:19 Dose: 100 ml Pneumococcal Polyvalent Vaccine (Pneumovax 23) 0.5 ml IM .ONCE ONE Stop: 04/26/19 17:48 - Exam Physical Findings Comments:: Constitutional: No acute distress Psychiatric: Mood/Affect: normal/appropriate Neurological: Mental Status: General: Normal activity, good hygiene, appropriate appearance. Level of consciousness: Awake, alert. No neglect Cranial Nerves: Visual conti full to confrontation. Gaze conjugate, EOMI. Sensation intact and symmetric to light touch. Face symmetric Mild palate dysarthria. Normal shrug bilaterally. Tongue protrudes midline Motor: Normal tone in all groups. RUE and RLE drift. Otherwise 5/5 throughout proximal and distal muscles. Sensation: Sensation is intact nd light touch bilateral upper and lower limbs. Coordination: Finger to nose slow on the right. intact. Gait: Cautious with cane, wide base Consult PN Assessment/Plan Procedures: Procedures ASSAY OF MAGNESIUM (08/01/14) ASSAY OF PSA TOTAL (03/05/17) ASSAY OF TROPONIN QUANT (01/05/18) ASSAY THYROID STIM HORMONE (01/05/18) CHEST X-RAY 1 VIEW FRONTAL (07/20/15) COLONOSCOPY AND BIOPSY (12/22/14) COMPLETE CBC AUTOMATED (05/04/14) COMPLETE CBC W/AUTO DIFF WBC (01/05/18) COMPREHEN METABOLIC PANEL (01/05/18) CT HEAD/BRAIN W/O DYE (02/13/18) CT MAXILLOFACIAL W/O DYE (02/13/18) DESTRUCT PREMALG LES 2-14 (05/24/14) DESTRUCT PREMALG LESION (05/24/14) ELECTROCARDIOGRAM TRACING (01/05/18) EMERGENCY DEPT VISIT (02/13/18) EMERGENCY DEPT VISIT (01/05/18) EMERGENCY DEPT VISIT (08/01/14) EMERGENCY DEPT VISIT (08/01/14) EXTRACRANIAL BILAT STUDY (01/05/18) GLYCOSYLATED HEMOGLOBIN TEST (01/05/18) IMMUNIZATION ADMIN (02/13/18) LIPID PANEL (01/05/18) MR ANGIOGRAPHY HEAD W/O DYE (01/05/18) MR ANGIOGRAPHY NECK W/O DYE (01/05/18) MRI BRAIN STEM W/O & W/DYE (01/05/18) OFFICE/OUTPATIENT VISIT EST (05/24/14) OFFICE/OUTPATIENT VISIT EST (05/04/14) OFFICE/OUTPATIENT VISIT NEW (12/11/14) PROTHROMBIN TIME (01/05/18) ROUTINE VENIPUNCTURE (01/05/18) TD VACC NO PRESV 7 YRS+ IM (02/13/18) THER/PROPH/DIAG INJ SC/IM (08/01/14) THROMBOPLASTIN TIME PARTIAL (01/05/18) TISSUE EXAM BY PATHOLOGIST (12/22/14) TREATMENT OF URETHRA LESION (07/22/16) TTE W/DOPPLER COMPLETE (01/05/18) URINALYSIS AUTO W/SCOPE (05/07/16) US EXAM ABDOM COMPLETE (05/09/14) X-RAY EXAM OF SHOULDER (02/13/18) (1) History of CVA (cerebrovascular accident) SNOMED Code(s): 452545340 Code(s): Z86.73 - PRSNL HX OF TIA (TIA), AND CEREB INFRC W/O RESID DEFICITS Current Visit: Yes (2) Acute ischemic stroke SNOMED Code(s): 617328337, 622684075 Code(s): I63.9 - CEREBRAL INFARCTION, UNSPECIFIED Current Visit: Yes Assessment:: Acute and subacute strokes predominately in left hemisphere Rec: Continue ASA/Plavix, statin PT to evaluate, consider outpatient PT as well Zio patch prior to discharge, follow neurology 3-4 weeks to review Problem List Initiated/Reviewed/Updated: Yes
[2019-04-27] MEDS ORDERED: Aspirin 81 MG Tab.EC PO SCH (09:00)
[2019-04-27] MEDS ORDERED: Lutein/Minerals/Vit A,C & E 1 TAB PO SCH (09:00)
[2019-04-27] MEDS ORDERED: Rosuvastatin 10 MG Tab PO SCH (09:00)
[2019-04-27] MEDS ORDERED: Clopidogrel 75 MG Tab PO SCH (09:00)
[2019-04-27] MEDS: Heparin Sodium 5,000 Units/ML Vial SUBCUT SCH (09:10)
--- NOTE | 2019-04-27 11:24 | PCM.DCSUM1 ---
Addendum entered and electronically signed by Keisha Vargas NP 04/27/19 14:27 : Discharge Summary - Hospital Course Free Text/Narrative:: [facility] Radiologist, Dr May called this afternoon regarding large plaque ulceration (10mm) to L internal carotid. I spoke with Dr. Collins, cardiovascular surgery regarding CTA findings. He felt a carotid endarterectomy would be necessary but not for 4-6 weeks. Colten has follow up appointment with Dr Caraballo cardiovascular surgeon May 05. I will fax information to him regarding this admission and findings on CTA. Colten and daughter updated on these findings and appointment. Educated on the importance of continuing Plavix and ASA now. Brief History: This 79 year old male with pmh of HTN, CVA in 2008, and dyslipidemia presented to the ED today with complaints of weakness to his right arm and leg. He reports it started this morning, and is stating it is still there now, but improving. He reports mild frontal headache, no vision complaints or new neck pain. reports chronic neck pain from arthritis. He denies olfactory changes, no hearing changes or facial droop. No swallowing concerns. No fevers chills or sore throat. No recent acute illness such as sinusitis. He denies chest pain or SOB. No cough. Denies abdominal pain or concerns with bowel or urinary troubles. He denies any memory concerns now. He otherwise has been doing well. he took his medications today, which include ASA and Plavix. In the ED, Labwork obtained is stable. INR 1.0. VS stable in the ED. EKG SR with no ectopy, LVH noted. Stroke code was called, he was evaluated by Dr Garcia, Neurology, found not to be TPA canidate. Head Ct reveals no acute intracranial abnormality, evidence of old infarcts noted. He was admitted for R sided weakness, rule out CVA. PCP, Dr Montano. Diagnosis: Stroke: Yes Modified C[place]lle Scale: No Signif.Disability Despite Sympt.Able to Carry Out Usual Act./Duties Modified [place] Scale Score: 1 - Discharge Data Discharge Date: 04/27/19 Discharge Disposition: Home, Self-Care 01 Condition: Good - Referral to Home Health Primary Care Physician: PCP Unknown - Discharge Diagnosis/Problem(s) (1) Right sided weakness SNOMED Code(s): 234649386 ICD Code: R53.1 - WEAKNESS Status: Acute Current Visit: Yes (2) History of CVA (cerebrovascular accident) SNOMED Code(s): 459669736 ICD Code: Z86.73 - PRSNL HX OF TIA (TIA), AND CEREB INFRC W/O RESID DEFICITS Status: Chronic Current Visit: Yes (3) HTN (hypertension) SNOMED Code(s): 36039079 ICD Code: I10 - ESSENTIAL (PRIMARY) HYPERTENSION Status: Chronic Current Visit: Yes (4) Dyslipidemia SNOMED Code(s): 151160139 ICD Code: E78.5 - HYPERLIPIDEMIA, UNSPECIFIED Status: Chronic Current Visit: Yes (5) CAD (coronary artery disease) SNOMED Code(s): 48336088 ICD Code: I25.10 - ATHSCL HEART DISEASE OF [place] CORONARY ARTERY W/O ANG PCTRS Status: Chronic Current Visit: Yes (6) Carotid stenosis Status: Chronic Current Visit: Yes Qualifiers: Laterality: left Qualified Code(s): I65.22 - Occlusion and stenosis of left carotid artery - Patient Summary/Data Consults: Consultations 04/26/19 16:13 OT Evaluation and Treatment [CONS] Routine PT Evaluation and Treatment [CONS] Routine 04/26/19 16:39 Consult to Speech Language Pathology [STEAM TENDER Evaluation and Treatment] [CONS] Routine 04/26/19 16:40 Consult to Physician [CONS] Routine - Patient Instructions Diet: Heart Healthy Diet Activity: As Tolerated Showering/Bathing: May Shower Notify Provider of: Fever, Increased Pain, Swelling and Redness, Drainage, Nausea and/or Vomiting Other/Special Instructions: Follow up with outpatient physical therapy. Zio patch to be placed and worn for [address] Garcia will follow up with results at appointment. - Discharge Plan *PRESCRIPTION DRUG MONITORING PROGRAM REVIEWED*: Not Applicable *COPY OF PRESCRIPTION DRUG MONITORING REPORT IN PATIENT NEAL: Not Applicable Home Medications: Home Meds Atenolol 12 mg PO ASDIRECTED 08/01/14 [History] Clopidogrel [Plavix] 75 mg PO DAILY 08/01/14 [History] Aspirin [Halfprin] 1 tab PO DAILY 12/20/14 [History] Lutein/Minerals/Vit A,C & E [Ocuvite] 1 tab PO DAILY 07/18/16 [History] Rosuvastatin Calcium [Crestor] 40 mg PO DAILY 01/05/18 [History] Lisinopril 10 mg PO DAILY #30 tablet 01/07/18 [Rx] Oxygen Therapy Mode: Room Air Patient Handouts: Stroke Prevention, Ischemic Stroke Referrals: Treasure Garcia MD [Physician] - 05/19/19 9:00 am (3-4 week s) Rui Esteban MD [Physician] - 05/10/19 10:15 am - Discharge Summary/Plan Comment DC Time >30 min.: No - Patient Data Vitals - Most Recent: Last Vital Signs Temp 98.2 F 04/27/19 12:00 Pulse 59 L 04/27/19 12:00 Resp 16 04/27/19 12:00 BP 157/80 H 04/27/19 12:00 Pulse Ox 96 04/27/19 08:00 Weight - Most Recent: 64.093 kg I&O - Last 24 hours: Intake & Output 04/26/19 04/27/19 04/27/19 22:59 06:59 14:59 Intake Total 500 Output Total 1000 Balance -500 Lab Results - Last 24 hrs: Laboratory Results - last 24 hr 04/26/19 04/26/19 04/26/19 Range/Units 14:20 14:20 14:20 WBC 6.57 (4.0-11.0) K/uL RBC 3.90 L (4.50-5.90) M/uL Hgb 12.6 L (13.0-17.0) g/dL Hct 37.6 L (38.0-50.0) % MCV 96.4 (80.0-98.0) fL MCH 32.3 H (27.0-32.0) pg MCHC 33.5 (31.0-37.0) g/dL RDW Std Deviation 49.3 (28.0-62.0) fl RDW Coeff of Cat 14 (11.0-15.0) % Plt Count 200 (150-400) K/uL MPV 11.10 (7.40-12.00) fL Neut % (Auto) 63.3 (48.0-80.0) % Lymph % (Auto) 26.2 (16.0-40.0) % Holmes % (Auto) 8.1 (0.0-15.0) % Eos % (Auto) 2.1 (0.0-7.0) % Baso % (Auto) 0.3 (0.0-1.5) % Neut # (Auto) 4.2 (1.4-5.7) K/uL Lymph # (Auto) 1.7 (0.6-2.4) K/uL Holmes # (Auto) 0.5 (0.0-0.8) K/uL Eos # (Auto) 0.1 (0.0-0.7) K/uL Baso # (Auto) 0.0 (0.0-0.1) K/uL Nucleated RBC % 0.0 /100WBC Nucleated RBCs # 0 K/uL INR 1.00 APTT 24.5 (18.6-31.3) SEC Sodium 141 (136-148) mmol/L Potassium 3.9 (3.5-5.1) mmol/L Chloride 105 (98-107) mmol/L Carbon Dioxide 26.2 (21.0-32.0) mmol/L BUN 23 H (7.0-18.0) mg/dL Creatinine 0.9 (0.8-1.3) mg/dL Est Cr Clr Drug Dosing TNP Estimated GFR (MDRD) > 60.0 ml/min Glucose 99 (74-106) mg/dL Hemoglobin A1c (4.5-6.2) % Calcium 9.6 (8.5-10.1) mg/dL Magnesium (1.8-2.4) mg/dL Total Bilirubin 0.8 (0.2-1.0) mg/dL AST 16 (15-37) IU/L ALT 16 (14-63) IU/L Alkaline Phosphatase 69 (46-116) U/L Troponin I < 0.050 (0.000-0.056) ng/mL Total Protein 7.0 (6.4-8.2) g/dL Albumin 4.1 (3.4-5.0) g/dL Globulin 2.9 (2.6-4.0) g/dL Albumin/Globulin Ratio 1.4 (0.9-1.6) Triglycerides (0-200) mg/dL Cholesterol (50-200) mg/dL LDL Cholesterol, Calc (60-180) mg/dL VLDL Cholesterol (5-55) mg/dL HDL Cholesterol (40-60) mg/dL Cholesterol/HDL Ratio (3.3-6.0) TSH 3rd Generation 0.93 (0.36-3.74) uIU/mL 04/27/19 04/27/19 04/27/19 Range/Units 05:51 05:51 05:51 WBC 5.25 (4.0-11.0) K/uL RBC 3.68 L (4.50-5.90) M/uL Hgb 11.8 L (13.0-17.0) g/dL Hct 35.6 L (38.0-50.0) % MCV 96.7 (80.0-98.0) fL MCH 32.1 H (27.0-32.0) pg MCHC 33.1 (31.0-37.0) g/dL RDW Std Deviation 49.3 (28.0-62.0) fl RDW Coeff of Cat 14 (11.0-15.0) % Plt Count 188 (150-400) K/uL MPV 11.30 (7.40-12.00) fL Neut % (Auto) 54.6 (48.0-80.0) % Lymph % (Auto) 28.8 (16.0-40.0) % Holmes % (Auto) 11.0 (0.0-15.0) % Eos % (Auto) 4.8 (0.0-7.0) % Baso % (Auto) 0.8 (0.0-1.5) % Neut # (Auto) 2.9 (1.4-5.7) K/uL Lymph # (Auto) 1.5 (0.6-2.4) K/uL Holmes # (Auto) 0.6 (0.0-0.8) K/uL Eos # (Auto) 0.3 (0.0-0.7) K/uL Baso # (Auto) 0.0 (0.0-0.1) K/uL Nucleated RBC % 0.0 /100WBC Nucleated RBCs # 0 K/uL INR APTT (18.6-31.3) SEC Sodium 140 (136-148) mmol/L Potassium 4.3 (3.5-5.1) mmol/L Chloride 106 (98-107) mmol/L Carbon Dioxide 25.5 (21.0-32.0) mmol/L BUN 21 H (7.0-18.0) mg/dL Creatinine 1.0 (0.8-1.3) mg/dL Est Cr Clr Drug Dosing 54.30 Estimated GFR (MDRD) > 60.0 ml/min Glucose 93 (74-106) mg/dL Hemoglobin A1c 5.5 (4.5-6.2) % Calcium 9.0 (8.5-10.1) mg/dL Magnesium 2.1 (1.8-2.4) mg/dL Total Bilirubin (0.2-1.0) mg/dL AST (15-37) IU/L ALT (14-63) IU/L Alkaline Phosphatase (46-116) U/L Troponin I (0.000-0.056) ng/mL Total Protein (6.4-8.2) g/dL Albumin (3.4-5.0) g/dL Globulin (2.6-4.0) g/dL Albumin/Globulin Ratio (0.9-1.6) Triglycerides 73 (0-200) mg/dL Cholesterol 133 (50-200) mg/dL LDL Cholesterol, Calc 60 (60-180) mg/dL VLDL Cholesterol 14 (5-55) mg/dL HDL Cholesterol 58 (40-60) mg/dL Cholesterol/HDL Ratio 2.3 L (3.3-6.0) TSH 3rd Generation (0.36-3.74) uIU/mL Med Orders - Current: Current Medications Acetaminophen (Tylenol) 650 mg PO Q4H PRN PRN Reason: Pain (Mild 1-3)/fever Aspirin (Halfprin) 81 mg PO DAILY [facility] Last Admin: 04/27/19 09:08 Dose: 81 mg Clopidogrel Bisulfate (Plavix) 75 mg PO DAILY [facility] Last Admin: 04/27/19 09:08 Dose: 75 mg Heparin Sodium (Porcine) (Heparin Sodium) 5,000 units SUBCUT Q12H [facility] Last Admin: 04/27/19 09:10 Dose: 5,000 units Ondansetron HCl (Zofran) 4 mg IVPUSH Q4H PRN PRN Reason: Nausea Lutein/Minerals/Vit (A,C & E 1 Tab) 1 each PO DAILY [facility] Last Admin: 04/27/19 09:10 Dose: Not Given Rosuvastatin Calcium (Crestor) 40 mg PO DAILY [facility] Last Admin: 04/27/19 09:07 Dose: 40 mg Sodium Chloride (Saline Flush) 10 ml FLUSH ASDIRECTED PRN PRN Reason: Keep Vein Open Sodium Chloride (Saline Flush) 2.5 ml FLUSH ASDIRECTED PRN PRN Reason: Keep Vein Open Sodium Chloride (Normal Saline) 10 ml IV ASDIRECTED PRN PRN Reason: IV Use Discontinued Medications Gadobenate Dimeglumine (Multihance) 12 ml IVPUSH ONETIME STA Stop: 04/26/19 18:36 Last Admin: 04/26/19 18:36 Dose: 12 ml Iopamidol (Isovue Multipack-370 (76%)) 100 ml IVPUSH ONETIME STA Stop: 04/26/19 18:57 Last Admin: 04/26/19 19:19 Dose: 100 ml Pneumococcal Polyvalent Vaccine (Pneumovax 23) 0.5 ml IM .ONCE ONE Stop: 04/26/19 17:48 Last Admin: 04/27/19 13:02 Dose: 0.5 ml Pneumococcal Polyvalent Vaccine (Pneumovax 23) 0.5 ml IM .ONCE ONE Stop: 04/27/19 13:16 Last Admin: 04/27/19 14:04 Dose: Not Given Original Note: Discharge Summary - Hospital Course Brief History: This 79 year old male with pmh of HTN, CVA in 2008, and dyslipidemia presented to the ED today with complaints of weakness to his right arm and leg. He reports it started this morning, and is stating it is still there now, but improving. He reports mild frontal headache, no vision complaints or new neck pain. reports chronic neck pain from arthritis. He denies olfactory changes, no hearing changes or facial droop. No swallowing concerns. No fevers chills or sore throat. No recent acute illness such as sinusitis. He denies chest pain or SOB. No cough. Denies abdominal pain or concerns with bowel or urinary troubles. He denies any memory concerns now. He otherwise has been doing well. he took his medications today, which include ASA and Plavix. In the ED, Labwork obtained is stable. INR 1.0. VS stable in the ED. EKG SR with no ectopy, LVH noted. Stroke code was called, he was evaluated by Dr Garcia, Neurology, found not to be TPA canidate. Head Ct reveals no acute intracranial abnormality, evidence of old infarcts noted. He was admitted for R sided weakness, rule out CVA. PCP, Dr Montano. Diagnosis: Stroke: Yes Modified [place] Scale: No Signif.Disability Despite Sympt.Able to Carry Out Usual Act./Duties Modified [place] Scale Score: 1 - Discharge Data Discharge Date: 04/27/19 Discharge Disposition: Home, Self-Care 01 Condition: Good - Referral to Home Health Primary Care Physician: PCP Unknown - Discharge Diagnosis/Problem(s) (1) Right sided weakness SNOMED Code(s): 539535013 ICD Code: R53.1 - WEAKNESS Status: Acute Current Visit: Yes (2) History of CVA (cerebrovascular accident) SNOMED Code(s): 397225055 ICD Code: Z86.73 - PRSNL HX OF TIA (TIA), AND CEREB INFRC W/O RESID DEFICITS Status: Chronic Current Visit: Yes (3) HTN (hypertension) SNOMED Code(s): 86902776 ICD Code: I10 - ESSENTIAL (PRIMARY) HYPERTENSION Status: Chronic Current Visit: Yes (4) Dyslipidemia SNOMED Code(s): 142558911 ICD Code: E78.5 - HYPERLIPIDEMIA, UNSPECIFIED Status: Chronic Current Visit: Yes (5) CAD (coronary artery disease) SNOMED Code(s): 44296035 ICD Code: I25.10 - ATHSCL HEART DISEASE OF [place] CORONARY ARTERY W/O ANG PCTRS Status: Chronic Current Visit: Yes (6) Carotid stenosis Status: Chronic Current Visit: Yes Qualifiers: Laterality: left Qualified Code(s): I65.22 - Occlusion and stenosis of left carotid artery - Patient Summary/Data Consults: Consultations 04/26/19 16:13 OT Evaluation and Treatment [CONS] Routine PT Evaluation and Treatment [CONS] Routine 04/26/19 16:39 Consult to Speech Language Pathology [STEAM TENDER Evaluation and Treatment] [CONS] Routine 04/26/19 16:40 Consult to Physician [CONS] Routine - Patient Instructions Diet: Heart Healthy Diet Activity: As Tolerated Showering/Bathing: May Shower Notify Provider of: Fever, Increased Pain, Swelling and Redness, Drainage, Nausea and/or Vomiting Other/Special Instructions: Follow up with outpatient physical therapy. Zio patch to be placed and worn for [address] Garcia will follow up with results at appointment. - Discharge Plan *PRESCRIPTION DRUG MONITORING PROGRAM REVIEWED*: Not Applicable *COPY OF PRESCRIPTION DRUG MONITORING REPORT IN PATIENT NEAL: Not Applicable Home Medications: Home Meds Atenolol 12 mg PO ASDIRECTED 08/01/14 [History] Clopidogrel [Plavix] 75 mg PO DAILY 08/01/14 [History] Aspirin [Halfprin] 1 tab PO DAILY 12/20/14 [History] Lutein/Minerals/Vit A,C & E [Ocuvite] 1 tab PO DAILY 07/18/16 [History] Rosuvastatin Calcium [Crestor] 40 mg PO DAILY 01/05/18 [History] Lisinopril 10 mg PO DAILY #30 tablet 01/07/18 [Rx] Oxygen Therapy Mode: Room Air Patient Handouts: Stroke Prevention, Ischemic Stroke Referrals: Rui Esteban MD [Physician] - 05/10/19 10:15 am Treasure Garcia MD [Physician] - (3-4 week s) - Discharge Summary/Plan Comment DC Time >30 min.: No Discharge Summary/Plan Comment: Admitting Diagnoses: R sided weakness, rule out CVA Discharge Diagnoses: Acute CVA- acute and subacute stoke predominately in left hemisphere Other PMH: HTN Hx CVA Carotid stenosis Colten was admitted secondary to R sided weakness, more predominately to R leg with some balance concerns. He rpeorts mild frontal headache as well which resolved last evening. Dr Garcia, Neurology was consulted in ED, not a TPA candidate. We discussed case with history of carotid stenosis we obtained CTA of head and neck along with MRI of brain. Brain MRI revealed scattered areas of restricted diffusion in the left hemisphere, showing acute and subacute infarcts. 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 He was stable overnight, with small lasting balance and weakness to R leg. Physical therapy evaluated him and felt he was safe, strength was good, but noted some balance concerns, but would recommended outpatient therapy to help with balance and strength. ST evaluated him for concerns of some swallowing concerns which have been present prior to event yesterday. OT was not needed as there are no concerns with ADLs. He will remain on currently therapeutic regimen of ASA, Plavix and Crestor 40 mg. He is also encouraged to continue Atenolol and Lisinopril as well. As per recommendations by Dr Garcia, Zio patch to be placed prior to discharge. He will have this for [address] Garcia will follow up with results at his follow up appointment with her. He is to see PCP in 1 week. Return to ED or clinic if concerns should arise. - General Info Date of Service: 04/27/19 Admission Dx/Problem (Free Text: Admission Diagnosis/Problem Admission Diagnosis/Problem CVA, Cerebrovascular accident Subjective Update: Sitting up in bed. Oriented, no concerns. Reports some mild weakness to R leg that is not baseline along with some balance issues with walking. No chest pain or SOB. No R arm weakness. He is asking about discharge home. Functional Status: Reports: Pain Controlled, Tolerating Diet, Ambulating, Urinating - Review of Systems General: Reports: No Symptoms. Denies: Weakness, Fatigue, Malaise HEENT: Reports: No Symptoms. Denies: Headaches, Visual Changes Pulmonary: Reports: No Symptoms. Denies: Shortness of Breath Cardiovascular: Reports: No Symptoms. Denies: Chest Pain Gastrointestinal: Reports: No Symptoms. Denies: Abdominal Pain, Nausea, Vomiting Genitourinary: Reports: No Symptoms. Denies: Dysuria, Frequency, Burning Musculoskeletal: Reports: No Symptoms. Denies: Neck Pain Skin: Reports: No Symptoms Neurological: Reports: Weakness (R leg ), Gait Disturbance (balance is slightly off, using 4 point cane) Psychiatric: Reports: No Symptoms - Patient Data Vitals - Most Recent: Last Vital Signs Temp 97.9 F 04/27/19 08:00 Pulse 52 L 04/27/19 08:00 Resp 16 04/27/19 08:00 BP 113/68 04/27/19 08:00 Pulse Ox 96 04/27/19 08:00 Weight - Most Recent: 64.093 kg I&O - Last 24 hours: Intake & Output 04/26/19 04/27/19 04/27/19 22:59 06:59 14:59 Intake Total 500 Output Total 1000 Balance -500 Lab Results - Last 24 hrs: Laboratory Results - last 24 hr 04/26/19 04/26/19 04/26/19 Range/Units 14:20 14:20 14:20 WBC 6.57 (4.0-11.0) K/uL RBC 3.90 L (4.50-5.90) M/uL Hgb 12.6 L (13.0-17.0) g/dL Hct 37.6 L (38.0-50.0) % MCV 96.4 (80.0-98.0) fL MCH 32.3 H (27.0-32.0) pg MCHC 33.5 (31.0-37.0) g/dL RDW Std Deviation 49.3 (28.0-62.0) fl RDW Coeff of Cat 14 (11.0-15.0) % Plt Count 200 (150-400) K/uL MPV 11.10 (7.40-12.00) fL Neut % (Auto) 63.3 (48.0-80.0) % Lymph % (Auto) 26.2 (16.0-40.0) % Holmes % (Auto) 8.1 (0.0-15.0) % Eos % (Auto) 2.1 (0.0-7.0) % Baso % (Auto) 0.3 (0.0-1.5) % Neut # (Auto) 4.2 (1.4-5.7) K/uL Lymph # (Auto) 1.7 (0.6-2.4) K/uL Holmes # (Auto) 0.5 (0.0-0.8) K/uL Eos # (Auto) 0.1 (0.0-0.7) K/uL Baso # (Auto) 0.0 (0.0-0.1) K/uL Nucleated RBC % 0.0 /100WBC Nucleated RBCs # 0 K/uL INR 1.00 APTT 24.5 (18.6-31.3) SEC Sodium 141 (136-148) mmol/L Potassium 3.9 (3.5-5.1) mmol/L Chloride 105 (98-107) mmol/L Carbon Dioxide 26.2 (21.0-32.0) mmol/L BUN 23 H (7.0-18.0) mg/dL Creatinine 0.9 (0.8-1.3) mg/dL Est Cr Clr Drug Dosing TNP Estimated GFR (MDRD) > 60.0 ml/min Glucose 99 (74-106) mg/dL Hemoglobin A1c (4.5-6.2) % Calcium 9.6 (8.5-10.1) mg/dL Magnesium (1.8-2.4) mg/dL Total Bilirubin 0.8 (0.2-1.0) mg/dL AST 16 (15-37) IU/L ALT 16 (14-63) IU/L Alkaline Phosphatase 69 (46-116) U/L Troponin I < 0.050 (0.000-0.056) ng/mL Total Protein 7.0 (6.4-8.2) g/dL Albumin 4.1 (3.4-5.0) g/dL Globulin 2.9 (2.6-4.0) g/dL Albumin/Globulin Ratio 1.4 (0.9-1.6) Triglycerides (0-200) mg/dL Cholesterol (50-200) mg/dL LDL Cholesterol, Calc (60-180) mg/dL VLDL Cholesterol (5-55) mg/dL HDL Cholesterol (40-60) mg/dL Cholesterol/HDL Ratio (3.3-6.0) TSH 3rd Generation 0.93 (0.36-3.74) uIU/mL 04/27/19 04/27/19 04/27/19 Range/Units 05:51 05:51 05:51 WBC 5.25 (4.0-11.0) K/uL RBC 3.68 L (4.50-5.90) M/uL Hgb 11.8 L (13.0-17.0) g/dL Hct 35.6 L (38.0-50.0) % MCV 96.7 (80.0-98.0) fL MCH 32.1 H (27.0-32.0) pg MCHC 33.1 (31.0-37.0) g/dL RDW Std Deviation 49.3 (28.0-62.0) fl RDW Coeff of Cat 14 (11.0-15.0) % Plt Count 188 (150-400) K/uL MPV 11.30 (7.40-12.00) fL Neut % (Auto) 54.6 (48.0-80.0) % Lymph % (Auto) 28.8 (16.0-40.0) % Holmes % (Auto) 11.0 (0.0-15.0) % Eos % (Auto) 4.8 (0.0-7.0) % Baso % (Auto) 0.8 (0.0-1.5) % Neut # (Auto) 2.9 (1.4-5.7) K/uL Lymph # (Auto) 1.5 (0.6-2.4) K/uL Holmes # (Auto) 0.6 (0.0-0.8) K/uL Eos # (Auto) 0.3 (0.0-0.7) K/uL Baso # (Auto) 0.0 (0.0-0.1) K/uL Nucleated RBC % 0.0 /100WBC Nucleated RBCs # 0 K/uL INR APTT (18.6-31.3) SEC Sodium 140 (136-148) mmol/L Potassium 4.3 (3.5-5.1) mmol/L Chloride 106 (98-107) mmol/L Carbon Dioxide 25.5 (21.0-32.0) mmol/L BUN 21 H (7.0-18.0) mg/dL Creatinine 1.0 (0.8-1.3) mg/dL Est Cr Clr Drug Dosing 54.30 Estimated GFR (MDRD) > 60.0 ml/min Glucose 93 (74-106) mg/dL Hemoglobin A1c 5.5 (4.5-6.2) % Calcium 9.0 (8.5-10.1) mg/dL Magnesium 2.1 (1.8-2.4) mg/dL Total Bilirubin (0.2-1.0) mg/dL AST (15-37) IU/L ALT (14-63) IU/L Alkaline Phosphatase (46-116) U/L Troponin I (0.000-0.056) ng/mL Total Protein (6.4-8.2) g/dL Albumin (3.4-5.0) g/dL Globulin (2.6-4.0) g/dL Albumin/Globulin Ratio (0.9-1.6) Triglycerides 73 (0-200) mg/dL Cholesterol 133 (50-200) mg/dL LDL Cholesterol, Calc 60 (60-180) mg/dL VLDL Cholesterol 14 (5-55) mg/dL HDL Cholesterol 58 (40-60) mg/dL Cholesterol/HDL Ratio 2.3 L (3.3-6.0) TSH 3rd Generation (0.36-3.74) uIU/mL Med Orders - Current: Current Medications Acetaminophen (Tylenol) 650 mg PO Q4H PRN PRN Reason: Pain (Mild 1-3)/fever Aspirin (Halfprin) 81 mg PO DAILY [facility] Last Admin: 04/27/19 09:08 Dose: 81 mg Clopidogrel Bisulfate (Plavix) 75 mg PO DAILY [facility] Last Admin: 04/27/19 09:08 Dose: 75 mg Heparin Sodium (Porcine) (Heparin Sodium) 5,000 units SUBCUT Q12H [facility] Last Admin: 04/27/19 09:10 Dose: 5,000 units Ondansetron HCl (Zofran) 4 mg IVPUSH Q4H PRN PRN Reason: Nausea Lutein/Minerals/Vit (A,C & E 1 Tab) 1 each PO DAILY [facility] Last Admin: 04/27/19 09:10 Dose: Not Given Rosuvastatin Calcium (Crestor) 40 mg PO DAILY [facility] Last Admin: 04/27/19 09:07 Dose: 40 mg Sodium Chloride (Saline Flush) 10 ml FLUSH ASDIRECTED PRN PRN Reason: Keep Vein Open Sodium Chloride (Saline Flush) 2.5 ml FLUSH ASDIRECTED PRN PRN Reason: Keep Vein Open Sodium Chloride (Normal Saline) 10 ml IV ASDIRECTED PRN PRN Reason: IV Use Discontinued Medications Gadobenate Dimeglumine (Multihance) 12 ml IVPUSH ONETIME STA Stop: 04/26/19 18:36 Last Admin: 04/26/19 18:36 Dose: 12 ml Iopamidol (Isovue Multipack-370 (76%)) 100 ml IVPUSH ONETIME STA Stop: 04/26/19 18:57 Last Admin: 04/26/19 19:19 Dose: 100 ml Pneumococcal Polyvalent Vaccine (Pneumovax 23) 0.5 ml IM .ONCE ONE Stop: 04/26/19 17:48 - Exam General: Reports: Alert, Oriented, Cooperative, No Acute Distress Lungs: Reports: Clear to Auscultation, Normal Respiratory Effort Cardiovascular: Reports: Regular Rate, Regular Rhythm GI/Abdominal Exam: Normal Bowel Sounds, Soft, Non-Tender, No Organomegaly Back Exam: Reports: Normal Inspection, Full Range of Motion Extremities: Normal Inspection, Normal Range of Motion, Non-Tender, No Pedal Edema. No: Increased Warmth Wound/Incisions: Reports: Healing Well Neurological: Reports: No New Focal Deficit. Denies: Strength Equal Bilateral ( slight weakness to R leg) Psy/Mental Status: Reports: Alert, Normal Affect, Normal Mood
[2019-04-27 12:39] VITALS: BP 157/80; PULSE 59
[2019-04-27] MEDS ORDERED: Pneumococcal Polyvalent-23 Vaccine 0.5 ML SDV IM ONE (13:15)
--- NOTE | 2019-04-29 17:46 | ECHO ---
The echocardiogram report can be seen in this patient's EMR (Electronic Medical Record) in the REPORTS section. The echocardiogram report has also been scanned into PACS and can be seen there as well. ALEXI
== END 2019-04-27 14:40 | disposition home or self-care (01) ==
LOC: MW.ED 14:00 → MW.MS 15:34
PROVIDERS: ADMIT Internal Medicine; ATTEND Internal Medicine
DX: I63.9 Cerebral infarction, unspecified (principal); G81.91 Hemiplegia, unspecified affecting right dominant side; I10 Essential (primary) hypertension; E78.5 Hyperlipidemia, unspecified; I25.10 Atherosclerotic heart disease of native coronary artery without angina pectoris; I65.22 Occlusion and stenosis of left carotid artery; Z86.73 Personal history of transient ischemic attack (TIA), and cerebral infarction without residual deficits; Z79.899 Other long term (current) drug therapy; Z79.02 Long term (current) use of antithrombotics/antiplatelets; Z79.82 Long term (current) use of aspirin
CPT/HCPCS: 0296T; 36415; 70450; 70496; 70498; 70553; 80048; 80053; 80061; 83036; 83735; 84443; 84484; 85025; 85610; 85730; 90732; 92610; 93005; 93306; 96372; 97161; 99285; A9270; A9577; G0009; G0378; J1644; Q9967

== ENCOUNTER 2019-04-28 08:27 | Emergency (ER) | payer MEDICARE, BC ==
[2019-04-28] MEDS ORDERED: Sodium Chloride 0.9% 10 ML SDV IV PRN (08:36)
[2019-04-28] MEDS ORDERED: Sodium Chloride 0.9% 2.5 ML Syringe FLUSH PRN (08:36)
[2019-04-28] MEDS ORDERED: Sodium Chloride 0.9% 10 ML Syringe FLUSH PRN (08:36)
--- NOTE | 2019-04-28 09:07 | CT ---
INDICATION: Stroke code. TECHNIQUE: CT head without IV contrast. COMPARISON: CT head 04/26/2019 and MR brain from same date. FINDINGS: Moderate atherosclerotic vascular calcifications. Minimal fluid and mucosal thickening in the ethmoidal sinuses. No acute intracranial hemorrhage, edema, or mass effect. The proximal left MCA is slightly denser than on 04/26/2019. This could be related to atherosclerotic disease and not dense enough to suggest an hyperdense MCA sign. 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 Moderate dilatation of the 3rd ventricle. Moderately severe small vessel ischemic disease stable. Moderate cerebral and mild cerebellar atrophy. Few small old lacunar infarcts in the brain. Remainder negative. IMPRESSION: No acute intracranial hemorrhage. No obvious acute intracranial disease. Left proximal MCA is slightly denser than it was on recent CT but this is not dense enough to suggest a hyperdense MCA sign. Other chronic intracranial findings as detailed above. Please note that all CT scans at this facility use dose modulation, iterative reconstruction, and/or weight-based dosing when appropriate to reduce radiation dose to as low as reasonably achievable. Dictated by Trent Hameed MD @ Apr 28 2019 9:05AM Signed by Dr. Trent Hameed @ Apr 28 2019 9:05AM
[2019-04-28 09:22] LABS: BLOOD UREA NITROGEN,BUN 19 mg/dL (7.0-18.0); CARBON DIOXIDE,CO2 27.5 mmol/L (21.0-32.0); CHLORIDE,CL 104 mmol/L (98-107); GLUCOSE RANDOM 123 mg/dL (74-106); SODIUM,NA 141 mmol/L (136-148)
[2019-04-28 10:05] VITALS: BP 127/79; PULSE 59
--- NOTE | 2019-04-28 10:20 | EDM.PDOC ---
ED HPI GENERAL MEDICAL PROBLEM - General Chief Complaint: Neuro Symptoms/Deficits Stated Complaint: DIZZINESS ,WEAKNESS Time Seen by Provider: 04/28/19 08:28 Source of Information: Reports: Patient History Limitations: Reports: No Limitations - History of Present Illness INITIAL COMMENTS - FREE TEXT/NARRATIVE: History of present illness: []Patient ambulated into the ED complaining of increasing right sided weakness and dizziness. He was admitted 2 days ago as a stroke code and diagnosed with a CVA and carotid stenosis with 10 mm ulcerating plaque. Cardiothoracic surgery was consulted and patient is scheduled to be evaluated at [facility] for further treatment in 4-[address] Garcia evaluated patient in the emergency room and in the hospital and will be following up with him also. Review of systems: As per history of present illness and below otherwise all systems reviewed and negative. Past medical history: As per history of present illness and as reviewed below otherwise noncontributory. Surgical history: As per history of present illness and as reviewed below otherwise noncontributory. Social history: No reported history of drug or alcohol abuse. Family history: As per history of present illness and as reviewed below otherwise noncontributory. Physical exam: General: Well developed, well nourished in NAD HEENT: Atraumatic, normocephalic, pupils reactive, negative for conjunctival pallor or scleral icterus, mucous membranes moist, throat clear, neck supple, nontender, trachea midline. Lungs: Clear to auscultation, breath sounds equal bilaterally, chest nontender. Heart: S1S2, regular, negative for clicks, rubs, or JVD. Abdomen: NABS, Soft, nondistended, nontender. Negative for masses or hepatosplenomegaly. Negative for costovertebral tenderness. Pelvis: Stable nontender. Genitourinary: Deferred. Rectal: Deferred. Extremities: Atraumatic, negative for cords or calf pain. Neurovascular unremarkable. Neuro: Awake, alert, oriented. Cranial nerves II through XII unremarkable. Cerebellum unremarkable. Mild right-sided upper extremity weakness with drift Skin:warm and dry NIH-1 Diagnostics: Stroke: Cold CT head, chest x-ray, CBC, chemistry and troponin, coags, TSH done Therapeutics: None ED Course: Consulted Dr. Garcia who requests he be transferred to [facility] given his recent admission and workup results Dr. Flores, neurology, [facility] was consulted and is aware if the patient he will be admitted to the hospitalist Dr. CHONG and transferred to [place] by EMS. Impression: Recent CVA with ongoing symptoms, carotid artery stenosis with 10 mm plaque Prescriptions: None Plan: Transfer to [facility] to hospitalist service to admit. Several ground ambulances were contacted for transfer due to a 9 hour wait time patient is being flown to [place] Definitive disposition and diagnosis as appropriate pending reevaluation and review of above. - Related Data Allergies Allergy/AdvReac Type Severity Reaction Status Date / Time No Known Allergies Allergy Verified 04/26/19 16:16 Home Meds: Home Meds Atenolol 12 mg PO ASDIRECTED 08/01/14 [History] Clopidogrel [Plavix] 75 mg PO DAILY 08/01/14 [History] Aspirin [Halfprin] 1 tab PO DAILY 12/20/14 [History] Rosuvastatin Calcium [Crestor] 40 mg PO DAILY 01/05/18 [History] Lisinopril 10 mg PO DAILY #30 tablet 01/07/18 [Rx] Past Medical History HEENT History: Reports: Cataract Other HEENT History: wears glasses Cardiovascular History: Reports: High Cholesterol, Hypertension Respiratory History: Reports: None Other Respiratory History: FORMER SMOKER Gastrointestinal History: Reports: None Genitourinary History: Reports: BPH Musculoskeletal History: Reports: Amputation, Arthritis Other Musculoskeletal History: amputation of right thumb Neurological History: Reports: CVA Other Neuro History: 2008, still taking Plavix Psychiatric History: Reports: None Endocrine/Metabolic History: Reports: None Hematologic History: Reports: None Immunologic History: Reports: None Oncologic (Cancer) History: Reports: Other (See Below) Other Oncologic History: some type of skin cancer removed from chest Dermatologic History: Reports: None - Infectious Disease History Infectious Disease History: Reports: Chicken Pox, Measles, Mumps - Past Surgical History Head Surgeries/Procedures: Reports: None HEENT Surgical History: Reports: Eye Surgery Social & Family History - Family History Family Medical History: Noncontributory - Tobacco Use Smoking Status *Q: Former Smoker Used Tobacco, but Quit: Yes Month/Year Tobacco Last Used: 2008 - Caffeine Use Caffeine Use: Reports: Coffee - Recreational Drug Use Recreational Drug Use: No - Living Situation & Occupation Living situation: Reports: Occupation: Retired ED ROS GENERAL - Review of Systems Review Of Systems: See Below ED EXAM, NEURO - Physical Exam Exam: See Below Course - Vital Signs Last Recorded V/S: Last Vital Signs Temp 97.5 F 04/28/19 10:00 Pulse 59 L 04/28/19 10:00 Resp 16 04/28/19 10:00 BP 127/79 04/28/19 10:00 Pulse Ox 96 04/28/19 10:00 - Orders/Labs/Meds Orders: Active Orders 24 hr Category Date Time Status Assess Neurological Status [RC] ASDIRECTED Care 04/28/19 08:36 Active Bedrest [RC] ASDIRECTED Care 04/28/19 08:36 Active Cardiac Monitoring [RC] . DIRECTED Care 04/28/19 08:36 Active EKG Documentation Completion [RC] STAT Care 04/28/19 08:36 Active Height and Weight [RC] UPON Care 04/28/19 08:36 Active Initiate Acute Stroke Protocol [RC] STAT Care 04/28/19 08:36 Active NIH Stroke Scale [RC] ASDIRECTED Care 04/28/19 08:36 Active Nursing Bedside Swallow Screen [RC] ASDIRECTED Care 04/28/19 08:36 Active Oxygen Therapy [RC] ASDIRECTED Care 04/28/19 08:36 Active Stroke Education, General [RC] Click to Edit Care 04/28/19 08:36 Active Vital Signs [RC] Q15M Care 04/28/19 08:36 Active Sodium Chloride 0.9% [Normal Saline] Med 04/28/19 08:36 Active 10 ml IV ASDIRECTED PRN Sodium Chloride 0.9% [Saline Flush] Med 04/28/19 08:36 Active 10 ml FLUSH ASDIRECTED PRN Sodium Chloride 0.9% [Saline Flush] Med 04/28/19 08:36 Active 2.5 ml FLUSH ASDIRECTED PRN Peripheral IV Insertion Adult [OM.PC] Stat Oth 04/28/19 08:36 Ordered Peripheral IV Insertion Adult [OM.PC] Stat Ot 04/28/19 08:36 Ordered Medication Orders Sodium Chloride (Saline Flush) 10 ml FLUSH ASDIRECTED PRN PRN Reason: Keep Vein Open Sodium Chloride (Saline Flush) 2.5 ml FLUSH ASDIRECTED PRN PRN Reason: Keep Vein Open Sodium Chloride (Normal Saline) 10 ml IV ASDIRECTED PRN PRN Reason: IV Use Labs: Laboratory Tests 04/28/19 04/28/19 04/28/19 Range/Units 08:34 08:34 08:34 WBC 8.20 (4.0-11.0) K/uL RBC 4.25 L (4.50-5.90) M/uL Hgb 13.8 (13.0-17.0) g/dL Hct 41.0 (38.0-50.0) % MCV 96.5 (80.0-98.0) fL MCH 32.5 H (27.0-32.0) pg MCHC 33.7 (31.0-37.0) g/dL RDW Std Deviation 48.9 (28.0-62.0) fl RDW Coeff of Cat 14 (11.0-15.0) % Plt Count 217 (150-400) K/uL MPV 10.80 (7.40-12.00) fL Neut % (Auto) 71.6 (48.0-80.0) % Lymph % (Auto) 18.8 (16.0-40.0) % [place] % (Auto) 6.5 (0.0-15.0) % Eos % (Auto) 2.9 (0.0-7.0) % Baso % (Auto) 0.2 (0.0-1.5) % Neut # (Auto) 5.9 H (1.4-5.7) K/uL Lymph # (Auto) 1.5 (0.6-2.4) K/uL [place] # (Auto) 0.5 (0.0-0.8) K/uL Eos # (Auto) 0.2 (0.0-0.7) K/uL Baso # (Auto) 0.0 (0.0-0.1) K/uL Nucleated RBC % 0.0 /100WBC Nucleated RBCs # 0 K/uL INR 0.95 APTT 24.7 (18.6-31.3) SEC Sodium 141 (136-148) mmol/L Potassium 4.0 (3.5-5.1) mmol/L Chloride 104 (98-107) mmol/L Carbon Dioxide 27.5 (21.0-32.0) mmol/L BUN 19 H (7.0-18.0) mg/dL Creatinine 1.1 (0.8-1.3) mg/dL Est Cr Clr Drug Dosing 49.26 mL/min Estimated GFR (MDRD) > 60.0 ml/min Glucose 123 H (74-106) mg/dL Calcium 9.0 (8.5-10.1) mg/dL Total Bilirubin 0.8 (0.2-1.0) mg/dL AST 12 L (15-37) IU/L ALT 14 (14-63) IU/L Alkaline Phosphatase 74 (46-116) U/L Troponin I < 0.050 (0.000-0.056) ng/mL Total Protein 7.4 (6.4-8.2) g/dL Albumin 4.2 (3.4-5.0) g/dL Globulin 3.2 (2.6-4.0) g/dL Albumin/Globulin Ratio 1.3 (0.9-1.6) TSH 3rd Generation 1.57 (0.36-3.74) uIU/mL Meds: Medications Generic Name Dose Route Start Last Admin Trade Name Freq PRN Reason Stop Dose Admin Sodium Chloride 10 ml 04/28/19 08:36 Saline Flush FLUSH ASDIRECTED PRN Keep Vein Open Sodium Chloride 2.5 ml 04/28/19 08:36 Saline Flush FLUSH ASDIRECTED PRN Keep Vein Open Sodium Chloride 10 ml 04/28/19 08:36 Normal Saline IV ASDIRECTED PRN IV Use Departure - Departure Time of Disposition: 10:20 Disposition: DC/Tfer to Acute Hospital 02 Condition: Fair Clinical Impression: CVA (cerebral vascular accident) Qualifiers: CVA mechanism: unspecified Qualified Code(s): I63.9 - Cerebral infarction, unspecified - Discharge Information Referrals: PCP,Unobtain [Primary Care Provider] - - My Orders Last 24 Hours: My Active Orders 04/28/19 08:36 Assess Neurological Status [RC] ASDIRECTED Bedrest [RC] ASDIRECTED Cardiac Monitoring [RC] . DIRECTED EKG Documentation Completion [RC] STAT Height and Weight [RC] UPON Initiate Acute Stroke Protocol [RC] STAT NIH Stroke Scale [RC] ASDIRECTED Nursing Bedside Swallow Screen [RC] ASDIRECTED Oxygen Therapy [RC] ASDIRECTED Stroke Education, General [RC] Click to Edit Vital Signs [RC] Q15M Sodium Chloride 0.9% [Normal Saline] 10 ml IV ASDIRECTED PRN Sodium Chloride 0.9% [Saline Flush] 10 ml FLUSH ASDIRECTED PRN Sodium Chloride 0.9% [Saline Flush] 2.5 ml FLUSH ASDIRECTED PRN Peripheral IV Insertion Adult [OM.PC] Stat Peripheral IV Insertion Adult [OM.PC] Stat - Assessment/Plan Last 24 Hours: My Active Orders 04/28/19 08:36 Assess Neurological Status [RC] ASDIRECTED Bedrest [RC] ASDIRECTED Cardiac Monitoring [RC] . DIRECTED EKG Documentation Completion [RC] STAT Height and Weight [RC] UPON Initiate Acute Stroke Protocol [RC] STAT NIH Stroke Scale [RC] ASDIRECTED Nursing Bedside Swallow Screen [RC] ASDIRECTED Oxygen Therapy [RC] ASDIRECTED Stroke Education, General [RC] Click to Edit Vital Signs [RC] Q15M Sodium Chloride 0.9% [Normal Saline] 10 ml IV ASDIRECTED PRN Sodium Chloride 0.9% [Saline Flush] 10 ml FLUSH ASDIRECTED PRN Sodium Chloride 0.9% [Saline Flush] 2.5 ml FLUSH ASDIRECTED PRN Peripheral IV Insertion Adult [OM.PC] Stat Peripheral IV Insertion Adult [OM.PC] Stat
== END 2019-04-28 10:46 ==
LOC: MW.ED 08:27
DX: I63.9 Cerebral infarction, unspecified (principal); G83.21 Monoplegia of upper limb affecting right dominant side; I65.29 Occlusion and stenosis of unspecified carotid artery; I10 Essential (primary) hypertension; Z86.73 Personal history of transient ischemic attack (TIA), and cerebral infarction without residual deficits; Z79.899 Other long term (current) drug therapy; Z79.82 Long term (current) use of aspirin; Z87.891 Personal history of nicotine dependence
CPT/HCPCS: 36415; 70450; 70450-26; 80053; 84443; 84484; 85025; 85610; 85730; 93005; 99285; 99285-25

== ENCOUNTER 2019-08-07 18:27 | Emergency (ER) | payer MEDICARE, BC ==
--- NOTE | 2019-08-07 19:25 | EDM.PDOC ---
ED HPI GENERAL MEDICAL PROBLEM - General Chief Complaint: Fever Stated Complaint: FWEVER;NOT FEELING WELL Time Seen by Provider: 08/07/19 19:08 Source of Information: Reports: Patient, Family History Limitations: Reports: No Limitations - History of Present Illness INITIAL COMMENTS - FREE TEXT/NARRATIVE: 79-year-old male presents the emergency room with a chief complaint of not feeling well for the last 2 days. Patient has had a fever 101 and has not been taking in a lot of fluids. Patient has a history of multiple strokes. Patient denies chest pain, shortness of breath Onset: Gradual Duration: Day(s):, Improving Location: Reports: Chest Severity: Mild Worsens with: Reports: None Associated Symptoms: Reports: Fever/Chills Body Aches Pain Score (Numeric/FACES): 7 - Related Data Allergies Allergy/AdvReac Type Severity Reaction Status Date / Time No Known Allergies Allergy Verified 08/07/19 18:56 Home Meds: Home Meds Clopidogrel [Plavix] 75 mg PO DAILY 08/01/14 [History] atenoloL [Atenolol] 12 mg PO ASDIRECTED 08/01/14 [History] Aspirin [Halfprin] 1 tab PO DAILY 12/20/14 [History] Rosuvastatin Calcium [Crestor] 40 mg PO DAILY 01/05/18 [History] Lisinopril 10 mg PO DAILY #30 tablet 01/07/18 [Rx] Past Medical History HEENT History: Reports: Cataract Other HEENT History: wears glasses Cardiovascular History: Reports: High Cholesterol, Hypertension Respiratory History: Reports: None Other Respiratory History: FORMER SMOKER Gastrointestinal History: Reports: None Genitourinary History: Reports: BPH Musculoskeletal History: Reports: Amputation, Arthritis Other Musculoskeletal History: amputation of right thumb Neurological History: Reports: CVA Other Neuro History: 2008, still taking Plavix Psychiatric History: Reports: None Endocrine/Metabolic History: Reports: None Hematologic History: Reports: None Immunologic History: Reports: None Oncologic (Cancer) History: Reports: Other (See Below) Other Oncologic History: some type of skin cancer removed from chest Dermatologic History: Reports: None - Infectious Disease History Infectious Disease History: Reports: Chicken Pox, Measles, Mumps - Past Surgical History Head Surgeries/Procedures: Reports: None HEENT Surgical History: Reports: Eye Surgery Cardiovascular Surgical History: Reports: Carotid Endarterectomy GI Surgical History: Reports: Other (See Below) Other GI Surgeries/Procedures: PEG tube Social & Family History - Family History Family Medical History: Noncontributory - Tobacco Use Smoking Status *Q: Never Smoker Second Hand Smoke Exposure: No - Caffeine Use Caffeine Use: Reports: None - Recreational Drug Use Recreational Drug Use: No - Living Situation & Occupation Living situation: Reports: Occupation: Retired ED ROS GENERAL - Review of Systems Review Of Systems: See Below Constitutional: Reports: Fever, Weakness HEENT: Reports: Throat Pain Respiratory: Reports: Cough Cardiovascular: Reports: No Symptoms GI/Abdominal: Reports: No Symptoms : Reports: No Symptoms Musculoskeletal: Reports: No Symptoms Skin: Reports: No Symptoms Neurological: Reports: No Symptoms Psychiatric: Reports: No Symptoms Hematologic/Lymphatic: Reports: No Symptoms Immunologic: Reports: No Symptoms ED EXAM, SEPSIS - Physical Exam Exam: See Below Text/Narrative:: [age]-year-old male presents to the emergency room chief complaint of fever for the last 2 days. The patient sore throat and a cough. Patient has had decreased intake for the past 3 weeks. Patient denies chest pain. On exam HEENT is normal. Chest is a normal S1-S2 Lungs clear to auscultation Soft nontender Remedies normal. he has a PEG tube and difficulty with speaking ever since the stroke Exam Limited By: No Limitations General Appearance: Alert, WD/WN, No Apparent Distress Eye Exam: Bilateral Eye: Normal Fundi, Normal Inspection, PERRL Ears: Normal External Exam, Normal Canal, Hearing Grossly Normal, Normal TMs Nose: Normal Inspection Throat/Mouth: Normal Inspection, Normal Lips, Normal Teeth, Normal Gums, Normal Oropharynx, No Airway Compromise, Hoarse Voice (Previous stroke this is sequelae ). No: Normal Voice Head: Atraumatic, Normocephalic Neck: Normal Inspection, Supple, Non-Tender, Full Range of Motion Respiratory/Chest: No Respiratory Distress, Lungs Clear, Normal Breath Sounds, No Accessory Muscle Use, Chest Non-Tender Cardiovascular: Normal Peripheral Pulses, Regular Rate, Rhythm, No Edema, No Gallop, No JVD, No Murmur GI/Abdominal Exam: Normal Bowel Sounds, Soft, Non-Tender, No Organomegaly, No Distention, No Abnormal Bruit (Male) Exam: No Hernia, Normal Inspection, Normal Prostate Rectal (Males) Exam: Deferred Back: Normal Inspection Extremities: Normal Inspection, Normal Range of Motion, No Pedal Edema, Normal Capillary Refill Neurological: Alert, Oriented, CN II-XII Intact, Normal Cognition, Normal Reflexes, No Motor/Sensory Deficits Psychiatric: Normal Affect, Normal Mood Course - Vital Signs Last Recorded V/S: Last Vital Signs Temp 99.2 F 08/07/19 18:53 Pulse 79 08/07/19 20:13 Resp 19 08/07/19 20:13 BP 132/75 08/07/19 20:13 Pulse Ox 98 08/07/19 20:13 - Orders/Labs/Meds Orders: Active Orders 24 hr Category Date Time Status CULTURE STREP A CONFIRMATION [] Stat Lab 08/07/19 19:43 Results STREP SCRN A RAPID W CULT CONF [RM] Stat Lab 08/07/19 19:43 Results Labs: Laboratory Tests 08/07/19 08/07/19 08/07/19 Range/Units 19:46 19:46 20:08 WBC 10.84 (4.0-11.0) K/uL RBC 3.35 L (4.50-5.90) M/uL Hgb 10.6 L (13.0-17.0) g/dL Hct 32.4 L (38.0-50.0) % MCV 96.7 (80.0-98.0) fL MCH 31.6 (27.0-32.0) pg MCHC 32.7 (31.0-37.0) g/dL RDW Std Deviation 50.6 (28.0-62.0) fl RDW Coeff of Cat 14 (11.0-15.0) % Plt Count 149 L (150-400) K/uL MPV 11.70 (7.40-12.00) fL Neut % (Auto) 82.3 H (48.0-80.0) % Lymph % (Auto) 11.0 L (16.0-40.0) % [place] % (Auto) 5.2 (0.0-15.0) % Eos % (Auto) 1.3 (0.0-7.0) % Baso % (Auto) 0.2 (0.0-1.5) % Neut # (Auto) 8.9 H (1.4-5.7) K/uL Lymph # (Auto) 1.2 (0.6-2.4) K/uL [place] # (Auto) 0.6 (0.0-0.8) K/uL Eos # (Auto) 0.1 (0.0-0.7) K/uL Baso # (Auto) 0.0 (0.0-0.1) K/uL Nucleated RBC % 0.0 /100WBC Nucleated RBCs # 0 K/uL Sodium 139 (136-148) mmol/L Potassium 4.3 (3.5-5.1) mmol/L Chloride 102 (98-107) mmol/L Carbon Dioxide 29.1 (21.0-32.0) mmol/L BUN 28 H (7.0-18.0) mg/dL Creatinine 0.7 L (0.8-1.3) mg/dL Est Cr Clr Drug Dosing 71.37 mL/min Estimated GFR (MDRD) > 60.0 ml/min Glucose 107 H (74-106) mg/dL Calcium 8.8 (8.5-10.1) mg/dL Total Bilirubin 0.5 (0.2-1.0) mg/dL AST 20 (15-37) IU/L ALT 40 (14-63) IU/L Alkaline Phosphatase 67 (46-116) U/L Total Protein 7.0 (6.4-8.2) g/dL Albumin 3.7 (3.4-5.0) g/dL Globulin 3.3 (2.6-4.0) g/dL Albumin/Globulin Ratio 1.1 (0.9-1.6) Urine Color YELLOW Urine Appearance CLEAR Urine pH 8.5 H (5.0-8.0) Ur Specific [place] 1.015 (1.001-1.035) Urine Protein NEGATIVE (NEGATIVE) mg/dL Urine Glucose (UA) NEGATIVE (NEGATIVE) mg/dL Urine Ketones NEGATIVE (NEGATIVE) mg/dL Urine Occult Blood NEGATIVE (NEGATIVE) Urine Nitrite NEGATIVE (NEGATIVE) Urine Bilirubin NEGATIVE (NEGATIVE) Urine Urobilinogen 0.2 (<2.0) EU/dL Ur Leukocyte Esterase NEGATIVE (NEGATIVE) Departure - Departure Time of Disposition: 21:05 Disposition: Home, Self-Care 01 Condition: Good Clinical Impression: Viral syndrome - Discharge Information Instructions: Viral Illness, Adult Referrals: Rui Esteban MD [Primary Care Provider] - Forms: ED Department Discharge Sepsis Event Note - Evaluation Sepsis Screening Result: No Definite Risk - Focused Exam Vital Signs: Vital Signs Temp Pulse Resp BP Pulse Ox 08/07/19 20:13 79 19 132/75 98 08/07/19 18:53 99.2 F 80 18 145/80 H 98 Date Exam was Performed: 08/07/19 Time Exam was Performed: 21:04 - My Orders Last 24 Hours: My Active Orders 08/07/19 19:43 CULTURE STREP A CONFIRMATION [RM] Stat STREP SCRN A RAPID W CULT CONF [RM] Stat - Assessment/Plan Last 24 Hours: My Active Orders 08/07/19 19:43 CULTURE STREP A CONFIRMATION [RM] Stat STREP SCRN A RAPID W CULT CONF [RM] Stat
--- NOTE | 2019-08-07 20:12 | CR ---
Indication: Shortness of breath. Technique: AP portable views of the chest were obtained. Comparison: None Findings: The heart is normal in size. The lungs are clear. No infiltrate, pleural effusion, or pneumothorax is identified. Cardiac event monitor is identified overlying the left chest. Impression: No acute cardiopulmonary process Dictated by Haleigh Awad MD @ Aug 07 2019 8:09PM Signed by Dr. Haleigh Awad @ Aug 07 2019 8:09PM
[2019-08-07 20:14] VITALS: BP 132/75; PULSE 79
[2019-08-07 20:14] LABS: BLOOD UREA NITROGEN,BUN 28 mg/dL (7.0-18.0); CARBON DIOXIDE,CO2 29.1 mmol/L (21.0-32.0); CHLORIDE,CL 102 mmol/L (98-107); GLUCOSE RANDOM 107 mg/dL (74-106); POTASSIUM,K 4.3 mmol/L (3.5-5.1); SODIUM,NA 139 mmol/L (136-148)
== END 2019-08-07 21:10 | disposition home or self-care (01) ==
LOC: MW.ED 18:27
DX: B34.9 Viral infection, unspecified (principal); I10 Essential (primary) hypertension; E78.00 Pure hypercholesterolemia, unspecified; Z86.73 Personal history of transient ischemic attack (TIA), and cerebral infarction without residual deficits; Z87.891 Personal history of nicotine dependence; Z79.02 Long term (current) use of antithrombotics/antiplatelets; Z79.899 Other long term (current) drug therapy; Z79.82 Long term (current) use of aspirin
CPT/HCPCS: 71045; 71045-26; 80053; 81003; 85025; 87081; 87804; 87880-QW; 93005; 99282; 99284-25

== ENCOUNTER 2020-02-29 15:20 | Emergency (ER) | payer MEDICARE, BC ==
--- NOTE | 2020-02-29 16:16 | CR ---
Left 2nd finger: 3 views left 2nd finger were obtained. Soft tissue laceration is seen. Joint space narrowing is scattered within the visualized DIP, PIP and DIP joints. Several bony densities are noted within the mid left 2nd finger. Please correlate of these are dystrophic or if patient has any symptoms out of soft tissue foreign bodies. No acute fracture or dislocation is seen. Impression: 1. Degenerative change. 2. Soft tissue injury. 3. Dystrophic calcifications or foreign bodies as described above. 4. No acute bony abnormality is appreciated. Diagnostic code #3 This report was dictated in MDT
--- NOTE | 2020-02-29 17:15 | EDM.PDOC ---
ED HPI GENERAL MEDICAL PROBLEM - General Chief Complaint: Laceration Stated Complaint: CUT INDEX FINGER LT HAND Time Seen by Provider: 02/29/20 16:26 - History of Present Illness INITIAL COMMENTS - FREE TEXT/NARRATIVE: History of present illness: 79-year-old male with left hand injury, laceration over the palmar surface of the left index finger sustained at 3 PM today. He was using a saw and cut the finger. He has not been able to bend the finger since the injury incident. Finger held in extension. Tender to palpation. Distal sensation intact. Patient received tetanus within the last 5 years. Review of systems: As per history of present illness and below otherwise all systems reviewed and negative. Past medical history: As per history of present illness and as reviewed below otherwise noncontributory. Surgical history: As per history of present illness and as reviewed below otherwise noncontributory. Social history: No reported history of drug or alcohol abuse. Family history: As per history of present illness and as reviewed below otherwise noncontributory. Physical exam: GEN: no acute distress, well appearing HEENT: Atraumatic, normocephalic, mucous membranes moist, Neck: supple, nontender, trachea midline. Lungs: No respiratory distress. Heart: RRR Extremities: Laceration of the left index finger palmar surface 3 cm, jagged, unable to visualize tendon, however you are held in extension and patient is unable to actively flex the finger and make a fist with that finger. With passive range of motion I am able to get to near complete fist. No other injury. Neurovascularly intact. Neuro: Awake, alert, oriented. Neuro Exam nonfocal. Skin: warm, dry, laceration as above Diagnostics: X-ray left index fingerno fracture, soft tissue injury Therapeutics: [] MDM: Impression: [] Plan: [] Definitive disposition and diagnosis as appropriate pending reevaluation and review of above. - Related Data Allergies Allergy/AdvReac Type Severity Reaction Status Date / Time No Known Allergies Allergy Verified 08/07/19 18:56 Home Meds: Home Meds atenoloL [Atenolol] 12 mg PO ASDIRECTED 08/01/14 [History] Aspirin [Halfprin] 1 tab PO DAILY 12/20/14 [History] Rosuvastatin Calcium [Crestor] 40 mg PO DAILY 01/05/18 [History] Lisinopril 10 mg PO DAILY #30 tablet 01/07/18 [Rx] Apixaban [Eliquis] 2.5 mg PO BID 02/29/20 [History] cephALEXin [Keflex] 1,000 mg PO BID #40 cap 02/29/20 [Rx] Past Medical History HEENT History: Reports: Cataract Other HEENT History: wears glasses Cardiovascular History: Reports: High Cholesterol, Hypertension Respiratory History: Reports: None Other Respiratory History: FORMER SMOKER Gastrointestinal History: Reports: None Genitourinary History: Reports: BPH Musculoskeletal History: Reports: Amputation, Arthritis Other Musculoskeletal History: amputation of right thumb Neurological History: Reports: CVA Other Neuro History: 2008, still taking Plavix Psychiatric History: Reports: None Endocrine/Metabolic History: Reports: None Hematologic History: Reports: None Immunologic History: Reports: None Oncologic (Cancer) History: Reports: Other (See Below) Other Oncologic History: some type of skin cancer removed from chest Dermatologic History: Reports: None - Infectious Disease History Infectious Disease History: Reports: Chicken Pox, Measles, Mumps - Past Surgical History Head Surgeries/Procedures: Reports: None HEENT Surgical History: Reports: Eye Surgery Cardiovascular Surgical History: Reports: Carotid Endarterectomy GI Surgical History: Reports: Other (See Below) Other GI Surgeries/Procedures: PEG tube Social & Family History - Family History Family Medical History: Noncontributory - Tobacco Use Smoking Status *Q: Current Every Day Smoker Years of Tobacco use: 20 Packs/Tins Daily: 0.5 Second Hand Smoke Exposure: No - Caffeine Use Caffeine Use: Reports: None - Recreational Drug Use Recreational Drug Use: No - Living Situation & Occupation Living situation: Reports: Occupation: Retired ED ROS GENERAL - Review of Systems Review Of Systems: See Below (See HPI) ED EXAM, SKIN/RASH Exam: See Below (See HPI) ED SKIN PROCEDURES - Laceration/Wound Repair Left Digit - 2nd (Index) Appearance: Muscle, Clean Distal NVT: Neuro & Vascular Intact, Other (Tendon injury) Anesthetic Type: Local Local Anesthesia - Lidocaine (Xylocaine): 1% Plain Local Anesthetic Volume: 2cc Skin Prep: Providone-Iodine (Betadine), Saline Saline Irrigation (cc's): 20 Exploration/Debridement/Repair: Wound Explored, In a Bloodless Field, Explored to Base, No Foreign Material Found, Wound Margins Revised, Multiple Flaps Aligned Closed with: Sutures Lac/Wound length In cm: 3 Suture Size: 4-0 # of Sutures: 3 Suture Type: Prolene, Interrupted Course - Vital Signs Text/Narrative:: Left index finger laceration with flexor tendon laceration, unable to flex the finger, distally neurovascularly intact. Will discuss with hand surgeon at [facility]. Discussed with hand surgeon, he recommends loosely close/approximate the wound and dress, place in a volar splint, Keflex and follow-up with him in 1 to 2 days. He will repair it next week. Discussed this at length with the patient. He voiced understanding. Keflex was given here. Wound jagged and with multiple flaps, flaps brought together. Xeroform placed over wound, and bulky dressing placed. Nursing placed volar splint. Last Recorded V/S: Last Vital Signs Temp 98.1 F 02/29/20 15:59 Pulse 56 L 02/29/20 18:16 Resp 16 02/29/20 18:16 BP 150/92 H 02/29/20 18:16 Pulse Ox 97 02/29/20 18:16 - Orders/Labs/Meds Orders: Active Orders 24 hr Category Date Time Status DME for Discharge [COMM] Stat Oth 02/29/20 17:20 Ordered Meds: Medications Discontinued Medications Generic Name Dose Route Start Last Admin Trade Name Isidra PRN Reason Stop Dose Admin Cephalexin 1,000 mg 02/29/20 17:19 02/29/20 17:26 Keflex PO 02/29/20 17:20 1,000 mg ONETIME ONE Administration Lidocaine HCl 5 ml 02/29/20 16:32 02/29/20 16:38 Xylocaine-Mpf 1% INJECT 02/29/20 16:33 5 ml ONETIME ONE Administration - Re-Assessments/Exams Free Text/Narrative Re-Assessment/Exam: 02/29/20 17:15 Discussed with hand surgeon, Dr. Bro at [facility]. He agrees the patient needs hand surgery follow-up but does not need to be transferred to [facility] today. He will see him in the office in 1 to 2 days. Recommends Keflex, recommends to loosely close the skin surfaces of the wound. Recommends volar splint to limit range of motion of the finger, hand and wrist. Departure - Departure Time of Disposition: 17:57 Disposition: Home, Self-Care 01 Clinical Impression: Flexor tendon laceration of finger with open wound - Discharge Information Prescriptions: cephALEXin [Keflex] 1,000 mg PO BID #40 cap Instructions: Cast or Splint Care, Adult, [id number], Wound Care, Adult, Laceration Care, Adult, [id number], Sutures, [place], or Adhesive Wound Closure, [id number], Sutured Wound Care, [id number] Referrals: Rui Esteban MD [Primary Care Provider] - Darius Bro MD [Ordering Only Provider] - 1 Day (Call the office tomorrow morning to schedule appointment in the next 1 to 2 days. Please tell him that your ER physician spoke to their hand surgeon who needed you to follow-up with them in 1 to 2 days.) Forms: ED Department Discharge Additional Instructions: Keep your left hand elevated. Keep the wound dressing and splint on at all times. Do not get either wet. If they do get wet please return to the emergency department to have them replaced. Please follow-up with the hand surgeon listed above as soon as possible, call tomorrow for an appointment within 24 hours. He will need surgery to repair the tendon laceration of your left hand. If you develop a fever or bleeding not controlled by pressure, ple ase return to the emergency department immediately. Please take the Keflex as prescribed until all pills are gone. The following information is given to patients seen in the emergency department who are being discharged to home. This information is to outline your options for follow-up care. We provide all patients seen in our emergency department with a follow-up referral. The need for follow-up, as well as the timing and circumstances, are variable depending upon the specifics of your emergency department visit. If you don't have a primary care physician on staff, we will provide you with a referral. We always advise you to contact your personal physician following an emergency department visit to inform them of the circumstance of the visit and for follow-up with them and/or the need for any referrals to a consulting specialist. The emergency department will also refer you to a specialist when appropriate. This referral assures that you have the opportunity for follow-up care with a specialist. All of these measure are taken in an effort to provide you with optimal care, which includes your follow-up. Under all circumstances we always encourage you to contact your private physician who remains a resource for coordinating your care. When calling for follow-up care, please make the office aware that this follow-up is from your recent emergency room visit. If for any reason you are refused follow-up, please contact the [facility] Emergency Department at and asked to speak to the emergency department charge nurse. Sepsis Event Note (ED) - Evaluation Sepsis Screening Result: No Definite Risk - Focused Exam Vital Signs: Vital Signs Temp Pulse Resp BP Pulse Ox 02/29/20 18:16 56 L 16 150/92 H 97 02/29/20 15:59 98.1 F 69 18 164/97 H 96 - My Orders Last 24 Hours: My Active Orders 02/29/20 17:20 DME for Discharge [COMM] Stat - Assessment/Plan Last 24 Hours: My Active Orders 02/29/20 17:20 DME for Discharge [COMM] Stat
[2020-02-29] MEDS ORDERED: Cephalexin 500 MG Cap PO ONE (17:19)
[2020-02-29 18:16] VITALS: BP 150/92; PULSE 56
== END 2020-02-29 18:17 | disposition home or self-care (01) ==
LOC: MW.ED 15:20
DX: S61.211A Laceration without foreign body of left index finger without damage to nail, initial encounter (principal); I10 Essential (primary) hypertension; E78.00 Pure hypercholesterolemia, unspecified; Z86.73 Personal history of transient ischemic attack (TIA), and cerebral infarction without residual deficits; F17.210 Nicotine dependence, cigarettes, uncomplicated; Z79.02 Long term (current) use of antithrombotics/antiplatelets; Z79.82 Long term (current) use of aspirin; Z79.01 Long term (current) use of anticoagulants; Z79.899 Other long term (current) drug therapy; W27.0XXA Contact with workbench tool, initial encounter
CPT/HCPCS: 12002; 73140; 99283; A9270; J2001

== ENCOUNTER 2020-06-07 17:38 | Observation (INO) | payer MEDICARE, BC ==
[2020-06-07] MEDS ORDERED: Sodium Chloride 0.9% 10 ML Syringe FLUSH PRN (17:45)
[2020-06-07] MEDS ORDERED: Sodium Chloride 0.9% 2.5 ML Syringe FLUSH PRN (17:45)
[2020-06-07] MEDS ORDERED: Aspirin 81 MG Tab.Chew PO ONE (18:05)
--- NOTE | 2020-06-07 18:05 | EDM.PDOC ---
ED HPI GENERAL MEDICAL PROBLEM - General Chief Complaint: Neuro Symptoms/Deficits Stated Complaint: STROKE Time Seen by Provider: 06/07/20 17:43 Source of Information: Reports: Patient History Limitations: Reports: No Limitations - History of Present Illness INITIAL COMMENTS - FREE TEXT/NARRATIVE: 80-year-old male past medical history CVA, hypertension, hyperlipidemia, CAD, carotid stenosis, anticoagulant (Eliquis) use presents for dizziness, off balance, generalized weakness. Patient states that he was sitting down having a sandwich, and began to feel lightheaded, dizzy, room spinning sensation. When he got up to walk he felt very off balance. This occurred around 3 PM this afternoon. Patient denies recent illnesses, fevers, cough, shortness of breath. When asked about chest pain, patient says that he always has chest pain in his left anterior chest. Patient notes a baseline left-sided chronic weakness from his prior CVA, this is unchanged today. Treatments PROSTHETIC DENTIST: Reports: IV/IO - Related Data Allergies Allergy/AdvReac Type Severity Reaction Status Date / Time No Known Allergies Allergy Verified 06/07/20 23:19 Home Meds: Home Meds atenoloL [Atenolol] 12 mg PO ASDIRECTED 08/01/14 [History] Aspirin [Halfprin] 1 tab PO DAILY 12/20/14 [History] Rosuvastatin Calcium [Crestor] 40 mg PO DAILY 01/05/18 [History] Apixaban [Eliquis] 2.5 mg PO BID 02/29/20 [History] cephALEXin [Keflex] 1,000 mg PO BID #40 cap 02/29/20 [Rx] Past Medical History HEENT History: Reports: Cataract Other HEENT History: wears glasses Cardiovascular History: Reports: High Cholesterol, Hypertension Respiratory History: Reports: None Other Respiratory History: FORMER SMOKER Gastrointestinal History: Reports: None Genitourinary History: Reports: BPH Musculoskeletal History: Reports: Amputation, Arthritis Other Musculoskeletal History: amputation of right thumb Neurological History: Reports: CVA Other Neuro History: 2008, still taking Plavix Psychiatric History: Reports: None Endocrine/Metabolic History: Reports: None Hematologic History: Reports: None Immunologic History: Reports: None Oncologic (Cancer) History: Reports: Other (See Below) Other Oncologic History: some type of skin cancer removed from chest Dermatologic History: Reports: None - Infectious Disease History Infectious Disease History: Reports: Chicken Pox, Measles, Mumps - Past Surgical History Head Surgeries/Procedures: Reports: None HEENT Surgical History: Reports: Eye Surgery Cardiovascular Surgical History: Reports: Carotid Endarterectomy GI Surgical History: Reports: Other (See Below) Other GI Surgeries/Procedures: PEG tube Social & Family History - Family History Family Medical History: Noncontributory - Caffeine Use Caffeine Use: Reports: None - Living Situation & Occupation Living situation: Reports: Occupation: Retired ED ROS GENERAL - Review of Systems Review Of Systems: Comprehensive ROS is negative, except as noted in HPI. ED EXAM, GENERAL - Physical Exam Exam: See Below Exam Limited By: No Limitations General Appearance: Alert, WD/WN, No Apparent Distress Eye Exam: Bilateral Eye: EOMI, PERRL Ears: Normal External Exam Nose: Normal Inspection Throat/Mouth: Normal Inspection, Normal Voice, No Airway Compromise Head: Atraumatic, Normocephalic Neck: Normal Inspection Respiratory/Chest: No Respiratory Distress, Lungs Clear, Normal Breath Sounds, No Accessory Muscle Use Cardiovascular: Normal Peripheral Pulses, Regular Rate, Rhythm GI/Abdominal: Soft, Non-Tender Neurological: Alert, Oriented, CN II-XII Intact, Normal Cognition, No Motor/Sensory Deficits, Other (When attempting to stand, patient becomes very dizzy and off balance needing to hold onto the side of the stretcher to prevent from falling) Psychiatric: Normal Affect, Normal Mood Skin Exam: Warm, Dry, Intact, Normal Color Course - Vital Signs Last Recorded V/S: Last Vital Signs Temp 98.6 F 06/07/20 21:05 Pulse 64 06/08/20 04:00 Resp 14 06/08/20 04:00 BP 161/74 H 06/08/20 04:00 Pulse Ox 96 06/08/20 04:00 Orthostatic Blood Pressure [ 201/118 Standing] Orthostatic Blood Pressure [ 186/98 Sitting] Orthostatic Blood Pressure [ 157/77 Supine] - Orders/Labs/Meds Orders: Active Orders 24 hr Category Date Time Status Patient Status [ADT] Routine ADT 06/07/20 19:55 Active Blood Glucose Check, Bedside [RC] ONETIME Care 06/07/20 17:45 Active Cardiac Monitoring [RC] . DIRECTED Care 06/07/20 17:45 Active EKG Documentation Completion [RC] STAT Care 06/07/20 17:45 Active Orthostatic Vital Signs [RC] ASDIRECTED Care 06/07/20 17:45 Active Pulse Oximetry [RC] ASDIRECTED Care 06/07/20 17:45 Active Sodium Chloride 0.9% [Saline Flush] Med 06/07/20 17:45 Active 10 ml FLUSH ASDIRECTED PRN Sodium Chloride 0.9% [Saline Flush] Med 06/07/20 17:45 Active 2.5 ml FLUSH ASDIRECTED PRN Saline Lock Insert [OM.PC] Stat Oth 06/07/20 17:45 Ordered Medication Orders Acetaminophen (Tylenol Extra Strength) 500 mg PO Q4H PRN PRN Reason: Headache/Pain Last Admin: 06/08/20 04:18 Dose: 500 mg Documented by: ROMARIO Albuterol/Ipratropium (Duoneb 3.0-0.5 Mg/3 Ml) 3 ml NEB Q4HRRT PRN PRN Reason: Shortness Of Breath/wheezing Apixaban (Eliquis) 2.5 mg PO BID [facility] Last Admin: 06/08/20 00:04 Dose: 2.5 mg Documented by: ROMARIO Aspirin (Halfprin) 81 mg PO DAILY [facility] Atenolol (Tenormin) 12 mg PO ASDIRECTED [facility] Cephalexin (Keflex) 1,000 mg PO BID [facility] Lactated Ringer's (Ringers, Lactated) 1,000 mls @ 100 mls/hr IV ASDIRECTED NASREEN Last Admin: 06/07/20 21:56 Dose: 100 mls/hr Documented by: ROMARIO Labetalol HCl (Normodyne) 10 mg IVPUSH Q4H PRN; Protocol PRN Reason: Hypertension Non-Formulary Medication (Rosuvastatin Calcium [Crestor]) 40 mg PO DAILY [facility] Ondansetron HCl (Zofran) 4 mg IVPUSH Q4H PRN PRN Reason: Nausea/Vomiting Sodium Chloride (Saline Flush) 10 ml FLUSH ASDIRECTED PRN PRN Reason: Keep Vein Open Last Admin: 06/07/20 18:14 Dose: 10 ml Documented by: ANSELMO Sodium Chloride (Saline Flush) 2.5 ml FLUSH ASDIRECTED PRN PRN Reason: Keep Vein Open Last Admin: 06/07/20 18:14 Dose: 2.5 ml Documented by: MURDNIC Labs: Laboratory Tests 06/07/20 06/07/20 06/07/20 Range/Units 17:44 17:44 17:44 WBC 5.33 (4.0-11.0) K/uL RBC 4.09 L (4.50-5.90) M/uL Hgb 13.1 (13.0-17.0) g/dL Hct 39.8 (38.0-50.0) % MCV 97.3 (80.0-98.0) fL MCH 32.0 (27.0-32.0) pg MCHC 32.9 (31.0-37.0) g/dL RDW Std Deviation 47.3 (28.0-62.0) fl RDW Coeff of Cat 13 (11.0-15.0) % Plt Count 217 (150-400) K/uL MPV 10.80 (7.40-12.00) fL Neut % (Auto) 55.6 (48.0-80.0) % Lymph % (Auto) 32.3 (16.0-40.0) % [place] % (Auto) 8.3 (0.0-15.0) % Eos % (Auto) 3.4 (0.0-7.0) % Baso % (Auto) 0.4 (0.0-1.5) % Neut # (Auto) 3.0 (1.4-5.7) K/uL Lymph # (Auto) 1.7 (0.6-2.4) K/uL [place] # (Auto) 0.4 (0.0-0.8) K/uL Eos # (Auto) 0.2 (0.0-0.7) K/uL Baso # (Auto) 0.0 (0.0-0.1) K/uL Nucleated RBC % 0.0 /100WBC Nucleated RBCs # 0 K/uL INR 1.03 APTT 24.7 (18.6-31.3) SEC Lactate 0.6 (0.20-2.00) mmol/L Sodium (136-148) mmol/L Potassium (3.5-5.1) mmol/L Chloride (98-107) mmol/L Carbon Dioxide (21.0-32.0) mmol/L BUN (7.0-18.0) mg/dL Creatinine (0.8-1.3) mg/dL Est Cr Clr Drug Dosing Estimated GFR (MDRD) ml/min Glucose (74-106) mg/dL Calcium (8.5-10.1) mg/dL Magnesium (1.8-2.4) mg/dL Total Bilirubin (0.2-1.0) mg/dL AST (15-37) IU/L ALT (14-63) IU/L Alkaline Phosphatase (46-116) U/L Troponin I (0.000-0.056) ng/mL Total Protein (6.4-8.2) g/dL Albumin (3.4-5.0) g/dL Globulin (2.6-4.0) g/dL Albumin/Globulin Ratio (0.9-1.6) Urine Color Urine Appearance Urine pH (5.0-8.0) Ur Specific [place] (1.001-1.035) Urine Protein (NEGATIVE) mg/dL Urine Glucose (UA) (NEGATIVE) mg/dL Urine Ketones (NEGATIVE) mg/dL Urine Occult Blood (NEGATIVE) Urine Nitrite (NEGATIVE) Urine Bilirubin (NEGATIVE) Urine Urobilinogen (<2.0) EU/dL Ur Leukocyte Esterase (NEGATIVE) SARS-CoV-2 RNA (JULIANA) (NEGATIVE) 06/07/20 06/07/20 06/07/20 Range/Units 17:44 17:44 18:40 WBC (4.0-11.0) K/uL RBC (4.50-5.90) M/uL Hgb (13.0-17.0) g/dL Hct (38.0-50.0) % MCV (80.0-98.0) fL MCH (27.0-32.0) pg MCHC (31.0-37.0) g/dL RDW Std Deviation (28.0-62.0) fl RDW Coeff of Cat (11.0-15.0) % Plt Count (150-400) K/uL MPV (7.40-12.00) fL Neut % (Auto) (48.0-80.0) % Lymph % (Auto) (16.0-40.0) % [place] % (Auto) (0.0-15.0) % Eos % (Auto) (0.0-7.0) % Baso % (Auto) (0.0-1.5) % Neut # (Auto) (1.4-5.7) K/uL Lymph # (Auto) (0.6-2.4) K/uL [place] # (Auto) (0.0-0.8) K/uL Eos # (Auto) (0.0-0.7) K/uL Baso # (Auto) (0.0-0.1) K/uL Nucleated RBC % /100WBC Nucleated RBCs # K/uL INR APTT (18.6-31.3) SEC Lactate (0.20-2.00) mmol/L Sodium 144 (136-148) mmol/L Potassium 3.7 (3.5-5.1) mmol/L Chloride 104 (98-107) mmol/L Carbon Dioxide 29.6 (21.0-32.0) mmol/L BUN 23 H (7.0-18.0) mg/dL Creatinine 1.1 (0.8-1.3) mg/dL Est Cr Clr Drug Dosing TNP Estimated GFR (MDRD) > 60.0 ml/min Glucose 101 (74-106) mg/dL Calcium 9.1 (8.5-10.1) mg/dL Magnesium 2.3 (1.8-2.4) mg/dL Total Bilirubin 0.4 (0.2-1.0) mg/dL AST 16 (15-37) IU/L ALT 20 (14-63) IU/L Alkaline Phosphatase 82 (46-116) U/L Troponin I < 0.050 (0.000-0.056) ng/mL Total Protein 7.6 (6.4-8.2) g/dL Albumin 4.3 (3.4-5.0) g/dL Globulin 3.3 (2.6-4.0) g/dL Albumin/Globulin Ratio 1.3 (0.9-1.6) Urine Color YELLOW Urine Appearance CLEAR Urine pH 8.0 (5.0-8.0) Ur Specific [place] 1.010 (1.001-1.035) Urine Protein NEGATIVE (NEGATIVE) mg/dL Urine Glucose (UA) NEGATIVE (NEGATIVE) mg/dL Urine Ketones NEGATIVE (NEGATIVE) mg/dL Urine Occult Blood NEGATIVE (NEGATIVE) Urine Nitrite NEGATIVE (NEGATIVE) Urine Bilirubin NEGATIVE (NEGATIVE) Urine Urobilinogen 0.2 (<2.0) EU/dL Ur Leukocyte Esterase NEGATIVE (NEGATIVE) SARS-CoV-2 RNA (JULIANA) (NEGATIVE) 06/07/20 Range/Units 18:52 WBC (4.0-11.0) K/uL RBC (4.50-5.90) M/uL Hgb (13.0-17.0) g/dL Hct (38.0-50.0) % MCV (80.0-98.0) fL MCH (27.0-32.0) pg MCHC (31.0-37.0) g/dL RDW Std Deviation (28.0-62.0) fl RDW Coeff of Cat (11.0-15.0) % Plt Count (150-400) K/uL MPV (7.40-12.00) fL Neut % (Auto) (48.0-80.0) % Lymph % (Auto) (16.0-40.0) % [place] % (Auto) (0.0-15.0) % Eos % (Auto) (0.0-7.0) % Baso % (Auto) (0.0-1.5) % Neut # (Auto) (1.4-5.7) K/uL Lymph # (Auto) (0.6-2.4) K/uL [place] # (Auto) (0.0-0.8) K/uL Eos # (Auto) (0.0-0.7) K/uL Baso # (Auto) (0.0-0.1) K/uL Nucleated RBC % /100WBC Nucleated RBCs # K/uL INR APTT (18.6-31.3) SEC Lactate (0.20-2.00) mmol/L Sodium (136-148) mmol/L Potassium (3.5-5.1) mmol/L Chloride (98-107) mmol/L Carbon Dioxide (21.0-32.0) mmol/L BUN (7.0-18.0) mg/dL Creatinine (0.8-1.3) mg/dL Est Cr Clr Drug Dosing Estimated GFR (MDRD) ml/min Glucose (74-106) mg/dL Calcium (8.5-10.1) mg/dL Magnesium (1.8-2.4) mg/dL Total Bilirubin (0.2-1.0) mg/dL AST (15-37) IU/L ALT (14-63) IU/L Alkaline Phosphatase (46-116) U/L Troponin I (0.000-0.056) ng/mL Total Protein (6.4-8.2) g/dL Albumin (3.4-5.0) g/dL Globulin (2.6-4.0) g/dL Albumin/Globulin Ratio (0.9-1.6) Urine Color Urine Appearance Urine pH (5.0-8.0) Ur Specific [place] (1.001-1.035) Urine Protein (NEGATIVE) mg/dL Urine Glucose (UA) (NEGATIVE) mg/dL Urine Ketones (NEGATIVE) mg/dL Urine Occult Blood (NEGATIVE) Urine Nitrite (NEGATIVE) Urine Bilirubin (NEGATIVE) Urine Urobilinogen (<2.0) EU/dL Ur Leukocyte Esterase (NEGATIVE) SARS-CoV-2 RNA (JULIANA) NEGATIVE (NEGATIVE) Meds: Medications Generic Name Dose Route Start Last Admin Trade Name Freq PRN Reason Stop Dose Admin Acetaminophen 500 mg 06/08/20 04:00 06/08/20 04:18 Tylenol Extra Strength PO 500 mg Q4H PRN Administration Headache/Pain Albuterol/Ipratropium 3 ml 06/07/20 21:05 Duoneb 3.0-0.5 Mg/3 Ml NEB Q4HRRT PRN Shortness Of Breath/wheezing Apixaban 2.5 mg 06/07/20 22:30 06/08/20 00:04 Eliquis PO 2.5 mg BID NASREEN Administration Aspirin 81 mg 06/08/20 09:00 Halfprin PO DAILY [facility]RE[facility] Atenolol 12 mg 06/07/20 21:15 Tenormin PO ASDIRECTED NASREEN Cephalexin 1,000 mg 06/08/20 09:00 Keflex PO BID [facility]RE[facility] Lactated Ringer's 1,000 mls @ 100 mls/hr 06/07/20 21:15 06/07/20 21:56 Ringers, Lactated IV 100 mls/hr ASDIRECTED NASREEN Administration Labetalol HCl 10 mg 06/07/20 21:13 Normodyne IVPUSH Q4H PRN Hypertension Protocol Non-Formulary Medication 40 mg 06/08/20 09:00 Rosuvastatin Calcium [Crestor] PO DAILY [facility] Ondansetron HCl 4 mg 06/07/20 21:05 Zofran IVPUSH Q4H PRN Nausea/Vomiting Sodium Chloride 10 ml 06/07/20 17:45 06/07/20 18:14 Saline Flush FLUSH 10 ml ASDIRECTED PRN Administration Keep Vein Open Sodium Chloride 2.5 ml 06/07/20 17:45 06/07/20 18:14 Saline Flush FLUSH 2.5 ml ASDIRECTED PRN Administration Keep Vein Open Discontinued Medications Generic Name Dose Route Start Last Admin Trade Name Freq PRN Reason Stop Dose Admin Apixaban 2.5 mg 06/08/20 09:00 Eliquis PO BID [facility] Aspirin 324 mg 06/07/20 18:05 06/07/20 18:14 Aspirin PO 06/07/20 18:06 Not Given ONETIME ONE Lisinopril 10 mg 06/08/20 09:00 Prinivil PO DAILY [facility] - Re-Assessments/Exams Free Text/Narrative Re-Assessment/Exam: 06/07/20 18:03 Patient presents with dizziness, lightheadedness, room spinning sensation, unsteady gait. A CVA note was called, and patient was brought over for stat CT head imaging. It was read by me as nonhemorrhagic, and patient subsequently underwent a CTA of the head and neck. Given an NIH stroke scale of 0 and patient's Eliquis use, he is not a TPA candidate. We will continue work-up to look for causes of dizziness, anticipate admit for posterior CVA work-up versus other. 06/07/20 18:21 Radiology called to say nothing acute on head CT. We will continue medical work-up and disposition accordingly. Departure - Departure Time of Disposition: 06:38 Disposition: Admitted As Inpatient 66 Condition: Good, Serious Clinical Impression: Dizziness - Discharge Information Sepsis Event Note (ED) - Evaluation Sepsis Screening Result: No Definite Risk - Focused Exam Vital Signs: Vital Signs Pulse BP Pulse Ox 06/07/20 19:53 60 137/68 97 06/07/20 19:08 62 149/91 H 98 - My Orders Last 24 Hours: My Active Orders 06/07/20 17:45 Blood Glucose Check, Bedside [RC] ONETIME Cardiac Monitoring [RC] . DIRECTED EKG Documentation Completion [RC] STAT Orthostatic Vital Signs [RC] ASDIRECTED Pulse Oximetry [RC] ASDIRECTED Sodium Chloride 0.9% [Saline Flush] 10 ml FLUSH ASDIRECTED PRN Sodium Chloride 0.9% [Saline Flush] 2.5 ml FLUSH ASDIRECTED PRN Saline Lock Insert [OM.PC] Stat - Assessment/Plan Last 24 Hours: My Active Orders 06/07/20 17:45 Blood Glucose Check, Bedside [RC] ONETIME Cardiac Monitoring [RC] . DIRECTED EKG Documentation Completion [RC] STAT Orthostatic Vital Signs [RC] ASDIRECTED Pulse Oximetry [RC] ASDIRECTED Sodium Chloride 0.9% [Saline Flush] 10 ml FLUSH ASDIRECTED PRN Sodium Chloride 0.9% [Saline Flush] 2.5 ml FLUSH ASDIRECTED PRN Saline Lock Insert [OM.PC] Stat
--- NOTE | 2020-06-07 18:21 | CT ---
Indication: Elderly, dizziness Technique: Volumetric multidetector CT images of the head were obtained without the administration of low osmolar intravenous contrast. Comparison: CT head April 28, 2019 Findings: There is no intra-axial or extra-axial fluid collection. There is no mass effect or midline shift. There is age-related cortical atrophy with mild sulcal widening and ex vacuo dilatation of the lateral ventricles. There is demonstration of stable encephalomalacia of the left frontal vertex with associated peripheral gliosis and ex vacuo dilatation of the body of the left lateral ventricle. There is moderate confluent chronic small vessel disease change within the subcortical and periventricular white matter. The remaining brain parenchyma is otherwise preserved in attenuation and leslie-white differentiation. The orbits and their contents are grossly within normal limits. The bony calvarium is grossly intact. There is minimal mucosal thickening within the paranasal sinuses. The mastoid air cells are well aerated. Impression: Stable remote ischemic and age-related changes of the brain without evidence of new acute intracranial abnormality. Findings reported to Dr. Hoskins at 6:10 p.m. 06/07/[address] Please note that all CT scans at this facility use dose modulation, iterative reconstruction, and/or weight-based dosing when appropriate to reduce radiation dose to as low as reasonably achievable. Dictated by Patrick Hayes MD @ Jun 07 2020 6:08PM Signed by Dr. Patrick Hayes @ Jun 07 2020 6:21PM
--- NOTE | 2020-06-07 18:23 | CR ---
INDICATION: Elderly, dizziness TECHNIQUE: Chest 1 views COMPARISON: Single view chest August 07, 2019 FINDINGS: There is hyperinflation and chronic interstitial change without evidence of dense consolidation, effusion, or pneumothorax. The cardiac silhouette is stable with mild aortic tortuosity. The bony thorax is otherwise grossly intact. IMPRESSION: Chronic interstitial changes and hyperinflation without acute cardiopulmonary abnormality. Dictated by Patrick Hayes MD @ Jun 07 2020 6:21PM Signed by Dr. Patrick Hayes @ Jun 07 2020 6:22PM
--- NOTE | 2020-06-07 18:34 | CT ---
Indication: Code stroke, dizziness Technique: Volumetric multidetector CT images of the cerebral vasculature were obtained after the administration of intravenous contrast using angiographic technique. Maximum intensity projections and 3-D reconstructions were performed. Low osmolar contrast was administered. Comparison: None available. Findings: HEAD: There is no midline shift or mass effect. The brain parenchyma again demonstrates encephalomalacia of the left vertex without additional abnormal leslie-white differentiation. The orbits are grossly intact. There is moderate mucosal thickening within the paranasal sinuses. The mastoid air cells are clear. The skull base carotid arteries are grossly unremarkable without evidence of significant atherosclerotic disease or filling defect. The anterior cerebral arteries are patent. The middle cerebral arteries are grossly patent. The posterior cerebral arteries are grossly patent. Anterior and posterior communicating arteries are grossly patent. The basilar artery is grossly patent without significant dolichoectasia. The skull base vertebral arteries are unremarkable with preserved vertebrobasilar junction. Impression: No evidence of aneurysm, vascular malformation, or high grade narrowing of the intracranial arteries. Please note that all CT scans at this facility use dose modulation, iterative reconstruction, and/or weight-based dosing when appropriate to reduce radiation dose to as low as reasonably achievable. Dictated by Patrick Hayes MD @ Jun 07 2020 6:27PM Signed by Dr. Patrick Hayes @ Jun 07 2020 6:33PM
--- NOTE | 2020-06-07 18:44 | CT ---
Indication: Code stroke, dizziness Technique: Volumetric multidetector CT images of the cervical vasculature were obtained after the administration of intravenous contrast using angiographic technique. Maximum intensity projections and 3-D reconstructions were performed. Findings were interpreted according to the NASCET criteria. Comparison: None available. Findings: Age-related atrophic changes of the visualized skullbase brain parenchyma are appreciated. The mastoid air cells are clear. The visualized [place] is grossly unremarkable. The oropharynx, hypopharynx, and larynx are unremarkable. There is no pathologically enlarged cervical lymph node. The thoracic aorta demonstrates a normal supraarch branching pattern without significant atherosclerotic disease. The common carotid arteries are patent. There is mild atherosclerotic calcification at the right carotid bifurcation without evidence of high-grade narrowing of the internal carotid artery. There is calcified and noncalcified plaque at the left bifurcation without evidence of high-grade narrowing of the internal carotid artery. There is a dominant left and primarily hypoplastic right vertebral artery. The cervical spine demonstrates extensive flowing anterior osteophytosis with otherwise preserved vertebral body heights. There is no acute osseous abnormality. Impression: No evidence of significant high-grade stenosis according to the NASCET categories. Please note that all CT scans at this facility use dose modulation, iterative reconstruction, and/or weight-based dosing when appropriate to reduce radiation dose to as low as reasonably achievable. Dictated by Patrick Hayes MD @ Jun 07 2020 6:33PM Signed by Dr. Patrick Hayes @ Jun 07 2020 6:44PM
[2020-06-07 19:00] LABS: BLOOD UREA NITROGEN,BUN 23 mg/dL (7.0-18.0); CARBON DIOXIDE,CO2 29.6 mmol/L (21.0-32.0); CHLORIDE,CL 104 mmol/L (98-107); GLUCOSE RANDOM 101 mg/dL (74-106); POTASSIUM,K 3.7 mmol/L (3.5-5.1); SODIUM,NA 144 mmol/L (136-148)
[2020-06-07] MEDS ORDERED: Ondansetron 4 MG/2 ML SDV IVPUSH PRN (21:05)
[2020-06-07] MEDS ORDERED: Albuterol/Ipratropium 3.0-0.5 MG/3 ML Neb Soln NEB PRN (21:05)
[2020-06-07] MEDS ORDERED: Labetalol 100 MG/20 ML MDV IVPUSH PRN (21:13)
[2020-06-07] MEDS ORDERED: Atenolol 25 MG Tab PO SCH (21:15)
[2020-06-07] MEDS: Lactated Ringers 1,000 ML IV SCH (21:56)
--- NOTE | 2020-06-07 22:47 | PCM.HP.2 ---
H&P History of Present Illness - General Date of Service: 06/07/20 Admit Problem/Dx: Admission Diagnosis/Problem Admission Diagnosis/Problem Dizziness - History of Present Illness Initial Comments - Free Text/Narative: Patient is a 80-year-old male past medical history several CVA, hypertension, hyperlipidemia, CAD, carotid stenosis s/p carotid endarterectomy, on anticoagulant (Eliquis) use presents for dizziness, off balance, generalized weakness. According to the Patient he was sitting down having a sandwich, when he turned his head he felt very lightheaded, later when he tried to get up his dizziness g ot even worse, room felt like it was spinning, and he felt off balance. This occurred around 3 PM this afternoon. Patient denies recent illnesses, fevers, cough, shortness of breath. When asked about chest pain, patient says that he always has reproducible chest pain in his left anterior chest which is due to his arthritis. Patient notes a baseline left-sided chronic weakness from his prior CVA, this is unchanged today. Labs were unremarkable, EKG showed no ST, T wave ischemic changes, troponin was negative, CTA head and neck showed no acute infarct or occlusion. BP was quite elevated ., SBP in 200s. Denied missing his pills, Patients dizziness persisted so he was admitted for further work up. - Related Data Allergies/Adverse Reactions: Allergies Allergy/AdvReac Type Severity Reaction Status Date / Time No Known Allergies Allergy Verified 06/07/20 23:19 Home Medications: Home Meds atenoloL [Atenolol] 12 mg PO DAILY 08/01/14 [History] Aspirin [Halfprin] 1 tab PO DAILY 12/20/14 [History] Rosuvastatin Calcium [Crestor] 40 mg PO DAILY 01/05/18 [History] Apixaban [Eliquis] 2.5 mg PO BID 02/29/20 [History] cephALEXin [Keflex] 1,000 mg PO BID #40 cap 02/29/20 [Rx] lisinopriL [Lisinopril] 10 mg PO DAILY 30 Days #30 tablet 06/08/20 [Rx] Past Medical History HEENT History: Reports: Cataract Other HEENT History: wears glasses Cardiovascular History: Reports: High Cholesterol, Hypertension Respiratory History: Reports: None Other Respiratory History: FORMER SMOKER Gastrointestinal History: Reports: None Genitourinary History: Reports: BPH Musculoskeletal History: Reports: Amputation, Arthritis Other Musculoskeletal History: amputation of right thumb Neurological History: Reports: CVA Other Neuro History: 2009, still taking Plavix Psychiatric History: Reports: None Endocrine/Metabolic History: Reports: None Hematologic History: Reports: None Immunologic History: Reports: None Oncologic (Cancer) History: Reports: Other (See Below) Other Oncologic History: some type of skin cancer removed from chest Dermatologic History: Reports: None - Infectious Disease History Infectious Disease History: Reports: Chicken Pox, Measles, Mumps - Past Surgical History Head Surgeries/Procedures: Reports: None HEENT Surgical History: Reports: Eye Surgery Cardiovascular Surgical History: Reports: Carotid Endarterectomy GI Surgical History: Reports: Other (See Below) Other GI Surgeries/Procedures: PEG tube Social & Family History - Family History Family Medical History: Noncontributory - Caffeine Use Caffeine Use: Reports: None - Living Situation & Occupation Living situation: Reports: Occupation: Retired H&P Review of Systems - Review of Systems: Review Of Systems: See Below General: Denies: Fever, Chills, Malaise Pulmonary: Denies: Shortness of Breath, Wheezing Cardiovascular: Denies: Chest Pain, Palpitations, Dyspnea on Exertion, Orthopnea Gastrointestinal: Denies: Abdominal Pain, Anorexia, Black Stool, Bloody Stool Genitourinary: Denies: Dysuria, Frequency, Burning, Pain Musculoskeletal: Reports: Hand Pain. Denies: Neck Pain, Shoulder Pain, Arm Pain, Leg Pain, Foot Pain Skin: Denies: Cyanosis, Jaundice, Mottled, Pallor Psychiatric: Denies: Confusion, Depression, Mood Lability Neurological: Reports: Dizziness, Pre-Existing Deficit. Denies: Confusion, Headache, Numbness, Paresthesia, Seizure, Syncope, Tingling, Tremors, Difficulty Walking, Weakness, Change in Speech, Gait Disturbance Exam - Exam Exam: See Below - Vital Signs Vital Signs: Last Vital Signs Temp 37.0 C 06/07/20 21:05 Pulse 64 06/07/20 21:22 Resp 14 06/07/20 21:22 BP 136/96 H 06/07/20 21:22 Pulse Ox 98 06/07/20 21:22 Orthostatic Blood Pressure [ 201/118 Standing] Orthostatic Blood Pressure [ 186/98 Sitting] Orthostatic Blood Pressure [ 157/77 Supine] Weight: 81.647 kg - Exam General: Alert, Oriented Neck: Supple, Trachea Midline Lungs: Clear to Auscultation, Normal Respiratory Effort Cardiovascular: Regular Rate, Regular Rhythm, Normal S1, Normal S2 GI/Abdominal Exam: Normal Bowel Sounds, Soft, Non-Tender Back Exam: Normal Inspection Extremities: Normal Inspection, Normal Range of Motion Skin: Incision (left hand, dry and clean ) Neurological: Cranial Nerves Intact, Reflexes Equal Bilateral, Strength Equal Bilateral, Normal Speech, Normal Tone, Sensation Intact. No: Focal Deficit, B abinski, Hyperreflexia, Hyporeflexia, Clonus, Reflexes Unequal, Abnormal Gait Neuro Extensive - Mental Status: Alert, Oriented x3, Normal Mood/Affect, Normal Cognition, Memory Intact. No: Disorientation to Person, Disorientation to Place, Disorientation to Time DTR: 3+: Patella (L), Patella (R) - Patient Data Lab Results Last 24 hrs: Laboratory Results - last 24 hr 06/07/20 06/07/20 06/07/20 Range/Units 17:44 17:44 17:44 WBC 5.33 (4.0-11.0) K/uL RBC 4.09 L (4.50-5.90) M/uL Hgb 13.1 (13.0-17.0) g/dL Hct 39.8 (38.0-50.0) % MCV 97.3 (80.0-98.0) fL MCH 32.0 (27.0-32.0) pg MCHC 32.9 (31.0-37.0) g/dL RDW Std Deviation 47.3 (28.0-62.0) fl RDW Coeff of Cat 13 (11.0-15.0) % Plt Count 217 (150-400) K/uL MPV 10.80 (7.40-12.00) fL Neut % (Auto) 55.6 (48.0-80.0) % Lymph % (Auto) 32.3 (16.0-40.0) % [place] % (Auto) 8.3 (0.0-15.0) % Eos % (Auto) 3.4 (0.0-7.0) % Baso % (Auto) 0.4 (0.0-1.5) % Neut # (Auto) 3.0 (1.4-5.7) K/uL Lymph # (Auto) 1.7 (0.6-2.4) K/uL [place] # (Auto) 0.4 (0.0-0.8) K/uL Eos # (Auto) 0.2 (0.0-0.7) K/uL Baso # (Auto) 0.0 (0.0-0.1) K/uL Nucleated RBC % 0.0 /100WBC Nucleated RBCs # 0 K/uL INR 1.03 APTT 24.7 (18.6-31.3) SEC Lactate 0.6 (0.20-2.00) mmol/L Sodium (136-148) mmol/L Potassium (3.5-5.1) mmol/L Chloride (98-107) mmol/L Carbon Dioxide (21.0-32.0) mmol/L BUN (7.0-18.0) mg/dL Creatinine (0.8-1.3) mg/dL Est Cr Clr Drug Dosing Estimated GFR (MDRD) ml/min Glucose (74-106) mg/dL Calcium (8.5-10.1) mg/dL Magnesium (1.8-2.4) mg/dL Total Bilirubin (0.2-1.0) mg/dL AST (15-37) IU/L ALT (14-63) IU/L Alkaline Phosphatase (46-116) U/L Troponin I (0.000-0.056) ng/mL Total Protein (6.4-8.2) g/dL Albumin (3.4-5.0) g/dL Globulin (2.6-4.0) g/dL Albumin/Globulin Ratio (0.9-1.6) Urine Color Urine Appearance Urine pH (5.0-8.0) Ur Specific [place] (1.001-1.035) Urine Protein (NEGATIVE) mg/dL Urine Glucose (UA) (NEGATIVE) mg/dL Urine Ketones (NEGATIVE) mg/dL Urine Occult Blood (NEGATIVE) Urine Nitrite (NEGATIVE) Urine Bilirubin (NEGATIVE) Urine Urobilinogen (<2.0) EU/dL Ur Leukocyte Esterase (NEGATIVE) SARS-CoV-2 RNA (JULIANA) (NEGATIVE) 06/07/20 06/07/20 06/07/20 Range/Units 17:44 17:44 18:40 WBC (4.0-11.0) K/uL RBC (4.50-5.90) M/uL Hgb (13.0-17.0) g/dL Hct (38.0-50.0) % MCV (80.0-98.0) fL MCH (27.0-32.0) pg MCHC (31.0-37.0) g/dL RDW Std Deviation (28.0-62.0) fl RDW Coeff of Cat (11.0-15.0) % Plt Count (150-400) K/uL MPV (7.40-12.00) fL Neut % (Auto) (48.0-80.0) % Lymph % (Auto) (16.0-40.0) % [place] % (Auto) (0.0-15.0) % Eos % (Auto) (0.0-7.0) % Baso % (Auto) (0.0-1.5) % Neut # (Auto) (1.4-5.7) K/uL Lymph # (Auto) (0.6-2.4) K/uL [place] # (Auto) (0.0-0.8) K/uL Eos # (Auto) (0.0-0.7) K/uL Baso # (Auto) (0.0-0.1) K/uL Nucleated RBC % /100WBC Nucleated RBCs # K/uL INR APTT (18.6-31.3) SEC Lactate (0.20-2.00) mmol/L Sodium 144 (136-148) mmol/L Potassium 3.7 (3.5-5.1) mmol/L Chloride 104 (98-107) mmol/L Carbon Dioxide 29.6 (21.0-32.0) mmol/L BUN 23 H (7.0-18.0) mg/dL Creatinine 1.1 (0.8-1.3) mg/dL Est Cr Clr Drug Dosing TNP Estimated GFR (MDRD) > 60.0 ml/min Glucose 101 (74-106) mg/dL Calcium 9.1 (8.5-10.1) mg/dL Magnesium 2.3 (1.8-2.4) mg/dL Total Bilirubin 0.4 (0.2-1.0) mg/dL AST 16 (15-37) IU/L ALT 20 (14-63) IU/L Alkaline Phosphatase 82 (46-116) U/L Troponin I < 0.050 (0.000-0.056) ng/mL Total Protein 7.6 (6.4-8.2) g/dL Albumin 4.3 (3.4-5.0) g/dL Globulin 3.3 (2.6-4.0) g/dL Albumin/Globulin Ratio 1.3 (0.9-1.6) Urine Color YELLOW Urine Appearance CLEAR Urine pH 8.0 (5.0-8.0) Ur Specific [place] 1.010 (1.001-1.035) Urine Protein NEGATIVE (NEGATIVE) mg/dL Urine Glucose (UA) NEGATIVE (NEGATIVE) mg/dL Urine Ketones NEGATIVE (NEGATIVE) mg/dL Urine Occult Blood NEGATIVE (NEGATIVE) Urine Nitrite NEGATIVE (NEGATIVE) Urine Bilirubin NEGATIVE (NEGATIVE) Urine Urobilinogen 0.2 (<2.0) EU/dL Ur Leukocyte Esterase NEGATIVE (NEGATIVE) SARS-CoV-2 RNA (JULIANA) (NEGATIVE) 06/07/20 Range/Units 18:52 WBC (4.0-11.0) K/uL RBC (4.50-5.90) M/uL Hgb (13.0-17.0) g/dL Hct (38.0-50.0) % MCV (80.0-98.0) fL MCH (27.0-32.0) pg MCHC (31.0-37.0) g/dL RDW Std Deviation (28.0-62.0) fl RDW Coeff of Cat (11.0-15.0) % Plt Count (150-400) K/uL MPV (7.40-12.00) fL Neut % (Auto) (48.0-80.0) % Lymph % (Auto) (16.0-40.0) % [place] % (Auto) (0.0-15.0) % Eos % (Auto) (0.0-7.0) % Baso % (Auto) (0.0-1.5) % Neut # (Auto) (1.4-5.7) K/uL Lymph # (Auto) (0.6-2.4) K/uL [place] # (Auto) (0.0-0.8) K/uL Eos # (Auto) (0.0-0.7) K/uL Baso # (Auto) (0.0-0.1) K/uL Nucleated RBC % /100WBC Nucleated RBCs # K/uL INR APTT (18.6-31.3) SEC Lactate (0.20-2.00) mmol/L Sodium (136-148) mmol/L Potassium (3.5-5.1) mmol/L Chloride (98-107) mmol/L Carbon Dioxide (21.0-32.0) mmol/L BUN (7.0-18.0) mg/dL Creatinine (0.8-1.3) mg/dL Est Cr Clr Drug Dosing Estimated GFR (MDRD) ml/min Glucose (74-106) mg/dL Calcium (8.5-10.1) mg/dL Magnesium (1.8-2.4) mg/dL Total Bilirubin (0.2-1.0) mg/dL AST (15-37) IU/L ALT (14-63) IU/L Alkaline Phosphatase (46-116) U/L Troponin I (0.000-0.056) ng/mL Total Protein (6.4-8.2) g/dL Albumin (3.4-5.0) g/dL Globulin (2.6-4.0) g/dL Albumin/Globulin Ratio (0.9-1.6) Urine Color Urine Appearance Urine pH (5.0-8.0) Ur Specific [place] (1.001-1.035) Urine Protein (NEGATIVE) mg/dL Urine Glucose (UA) (NEGATIVE) mg/dL Urine Ketones (NEGATIVE) mg/dL Urine Occult Blood (NEGATIVE) Urine Nitrite (NEGATIVE) Urine Bilirubin (NEGATIVE) Urine Urobilinogen (<2.0) EU/dL Ur Leukocyte Esterase (NEGATIVE) SARS-CoV-2 RNA (JULIANA) NEGATIVE (NEGATIVE) Result Diagrams: 06/08/20 05:45 06/08/20 05:45 Sepsis Event Note - Evaluation Sepsis Screening Result: No Definite Risk - Focused Exam Vital Signs: Vital Signs Temp Pulse Resp BP Pulse Ox Pulse Ox 06/07/20 21:22 64 14 136/96 H 98 06/07/20 21:06 97 06/07/20 21:05 37.0 C 62 16 169/72 H 97 06/07/20 19:53 60 137/68 97 06/07/20 19:08 62 149/91 H 98 06/07/20 18:32 78 16 201/113 H 97 06/07/20 17:49 36.1 C 69 16 193/88 H 98 - Problem List (1) H/O carotid endarterectomy SNOMED Code(s): 720985055, 736622445 ICD Code: Z98.890 - OTHER SPECIFIED POSTPROCEDURAL STATES Status: Acute (2) Dizziness SNOMED Code(s): 719491984, 146886642 ICD Code: R42 - DIZZINESS AND GIDDINESS Status: Acute (3) Flexor tendon laceration of finger with open wound SNOMED Code(s): 92161561 ICD Code: S56.129A - LACERAT FLEXOR MUSC/FASC/TEND UNSP FINGER AT FORARM LV, INIT; S61.209A - UNSP OPEN WOUND OF UNSP FINGER W/O DAMAGE TO NAIL, INIT Status: Acute (4) CAD (coronary artery disease) SNOMED Code(s): 27670470 ICD Code: I25.10 - ATHSCL HEART DISEASE OF [place] CORONARY ARTERY W/O ANG PCTRS Status: Chronic (5) HTN (hypertension) SNOMED Code(s): 54430356 ICD Code: I10 - ESSENTIAL (PRIMARY) HYPERTENSION Status: Chronic (6) History of CVA (cerebrovascular accident) SNOMED Code(s): 449868428 ICD Code: Z86.73 - PRSNL HX OF TIA (TIA), AND CEREB INFRC W/O RESID DEFICITS Status: Chronic Problem List Initiated/Reviewed/Updated: Yes Orders Last 24hrs: Active Orders 24 hr Category Date Time Status Patient Status [ADT] Routine ADT 06/07/20 19:55 Active Ambulate [RC] ASDIRECTED Care 06/07/20 21:05 Active Antiembolic Devices [RC] PER UNIT ROUTINE Care 06/07/20 21:06 Active Blood Glucose Check, Bedside [RC] ONETIME Care 06/07/20 17:45 Active Cardiac Monitoring [RC] . DIRECTED Care 06/07/20 17:45 Active EKG Documentation Completion [RC] STAT Care 06/07/20 17:45 Active Orthostatic Vital Signs [RC] ASDIRECTED Care 06/07/20 17:45 Active Oxygen Therapy [RC] PRN Care 06/07/20 21:05 Active Pulse Oximetry [RC] ASDIRECTED Care 06/07/20 17:45 Active RT Aerosol Therapy [RC] ASDIRECTED Care 06/07/20 21:09 Active Telemetry Monitoring [Cardiac Monitoring] [RC] Q8H Care 06/07/20 20:17 Active VTE/DVT Education [RC] PER UNIT ROUTINE Care 06/07/20 21:05 Active Vital Signs [RC] Q4H Care 06/07/20 21:05 Active Heart Healthy Diet [DIET] Diet 06/07/20 Dinner Active Brain w wo Cont [MR] Routine Exams 06/07/20 21:09 Ordered BMP [BASIC METABOLIC PANEL,BMP] [CHEM] AM Lab 06/08/20 05:11 Ordered CBC WITH AUTO DIFF [HEME] AM Lab 06/08/20 05:11 Ordered LIPID PANEL [CHEM] AM Lab 06/08/20 05:11 Ordered MAGNESIUM [CHEM] AM Lab 06/08/20 05:11 Ordered PHOSPHORUS [CHEM] AM Lab 06/08/20 05:11 Ordered Albuterol/Ipratropium [DuoNeb 3.0-0.5 MG/3 ML] Med 06/07/20 21:05 Active 3 ml NEB Q4HRRT PRN Apixaban [Eliquis] Med 06/07/20 22:30 Active 2.5 mg PO BID Aspirin [Halfprin] Med 06/08/20 09:00 Active 81 mg PO DAILY Labetalol [Normodyne] Med 06/07/20 21:13 Active 10 mg IVPUSH Q4H PRN Lactated Ringers [Ringers, Lactated] 1,000 ml Med 06/07/20 21:15 Active IV ASDIRECTED Ondansetron [Zofran] Med 06/07/20 21:05 Active 4 mg IVPUSH Q4H PRN Rosuvastatin Calcium [Crestor] Med 06/08/20 09:00 Active 40 mg PO DAILY Sodium Chloride 0.9% [Saline Flush] Med 06/07/20 17:45 Active 10 ml FLUSH ASDIRECTED PRN Sodium Chloride 0.9% [Saline Flush] Med 06/07/20 17:45 Active 2.5 ml FLUSH ASDIRECTED PRN atenoloL [Tenormin] Med 06/07/20 21:15 Active 12 mg PO ASDIRECTED lisinopriL [Prinivil] Med 06/08/20 09:00 Active 10 mg PO DAILY Saline Lock Insert [OM.PC] Stat Oth 06/07/20 17:45 Ordered Sequential Compression Device [OM.PC] Per Unit Routine Oth 06/07/20 21:06 Ordered Medication Orders Albuterol/Ipratropium (Duoneb 3.0-0.5 Mg/3 Ml) 3 ml NEB Q4HRRT PRN PRN Reason: Shortness Of Breath/wheezing Apixaban (Eliquis) 2.5 mg PO BID NASREEN Aspirin (Halfprin) 81 mg PO DAILY NASREEN Atenolol (Tenormin) 12 mg PO ASDIRECTED NASREEN Lactated Ringer's (Ringers, Lactated) 1,000 mls @ 100 mls/hr IV ASDIRECTED NASREEN Last Admin: 06/07/20 21:56 Dose: 100 mls/hr Documented by: ROMARIO Labetalol HCl (Normodyne) 10 mg IVPUSH Q4H PRN; Protocol PRN Reason: Hypertension Lisinopril (Prinivil) 10 mg PO DAILY NASREEN Non-Formulary Medication (Rosuvastatin Calcium [Crestor]) 40 mg PO DAILY NASREEN Ondansetron HCl (Zofran) 4 mg IVPUSH Q4H PRN PRN Reason: Nausea/Vomiting Sodium Chloride (Saline Flush) 10 ml FLUSH ASDIRECTED PRN PRN Reason: Keep Vein Open Last Admin: 06/07/20 18:14 Dose: 10 ml Documented by: ANSELMO Sodium Chloride (Saline Flush) 2.5 ml FLUSH ASDIRECTED PRN PRN Reason: Keep Vein Open Last Admin: 06/07/20 18:14 Dose: 2.5 ml Documented by: ANSELMO Assessment/Plan Comment:: 80 y/o M admitted for stroke work up CTA head/neck negative obtain MRI brain w/wo to r/o acute stroke HTN: permissive HTN, Labetalol for SBP>180 cont tele monitor and replete electrolytes as needed resume home meds as appropriate PT consult
[2020-06-08] MEDS: Apixaban 2.5 MG Tab PO SCH ×2 (00:04→09:12)
[2020-06-08] MEDS ORDERED: Acetaminophen 325 MG Tab PO PRN (03:56)
[2020-06-08] MEDS: Acetaminophen 500 MG Tab PO PRN ×2 (04:18→10:21)
[2020-06-08] MEDS: Lactated Ringers 1,000 ML IV SCH (07:20)
[2020-06-08 07:22] LABS: BLOOD UREA NITROGEN,BUN 17 mg/dL (7.0-18.0); CARBON DIOXIDE,CO2 26.7 mmol/L (21.0-32.0); CHLORIDE,CL 104 mmol/L (98-107); GLUCOSE RANDOM 90 mg/dL (74-106); POTASSIUM,K 3.6 mmol/L (3.5-5.1); SODIUM,NA 139 mmol/L (136-148)
[2020-06-08] MEDS ORDERED: Lisinopril 10 MG Tab PO SCH (09:00)
[2020-06-08] MEDS ORDERED: Apixaban 2.5 MG Tab PO SCH (09:00)
[2020-06-08] MEDS ORDERED: Aspirin 81 MG Tab.EC PO SCH (09:00)
[2020-06-08] MEDS ORDERED: ROSUVASTATIN CALCIUM 40 MG PO SCH (09:00)
[2020-06-08] MEDS ORDERED: Cephalexin 500 MG Cap PO SCH (09:00)
--- NOTE | 2020-06-08 09:17 | PCM.PN ---
- General Info Date of Service: 06/08/20 Subjective Update: Reports that he still has a headache. Denies any fevers, chills, SOB, chest pain, nausea or vomiting. - Patient Data Vitals - Most Recent: Last Vital Signs Temp 37.0 C 06/07/20 21:05 Pulse 64 06/08/20 04:00 Resp 14 06/08/20 04:00 BP 161/74 H 06/08/20 04:00 Pulse Ox 96 06/08/20 04:00 Orthostatic Blood Pressure [ 201/118 Standing] Orthostatic Blood Pressure [ 186/98 Sitting] Orthostatic Blood Pressure [ 157/77 Supine] Weight - Most Recent: 81.6 kg I&O - Last 24 Hours: Intake & Output 06/07/20 06/08/20 06/08/20 22:59 06:59 14:59 Intake Total 75 Balance 75 Lab Results Last 24 Hours: Laboratory Results - last 24 hr 06/07/20 06/07/20 06/07/20 Range/Units 17:44 17:44 17:44 WBC 5.33 (4.0-11.0) K/uL RBC 4.09 L (4.50-5.90) M/uL Hgb 13.1 (13.0-17.0) g/dL Hct 39.8 (38.0-50.0) % MCV 97.3 (80.0-98.0) fL MCH 32.0 (27.0-32.0) pg MCHC 32.9 (31.0-37.0) g/dL RDW Std Deviation 47.3 (28.0-62.0) fl RDW Coeff of Cat 13 (11.0-15.0) % Plt Count 217 (150-400) K/uL MPV 10.80 (7.40-12.00) fL Neut % (Auto) 55.6 (48.0-80.0) % Lymph % (Auto) 32.3 (16.0-40.0) % [place] % (Auto) 8.3 (0.0-15.0) % Eos % (Auto) 3.4 (0.0-7.0) % Baso % (Auto) 0.4 (0.0-1.5) % Neut # (Auto) 3.0 (1.4-5.7) K/uL Lymph # (Auto) 1.7 (0.6-2.4) K/uL [place] # (Auto) 0.4 (0.0-0.8) K/uL Eos # (Auto) 0.2 (0.0-0.7) K/uL Baso # (Auto) 0.0 (0.0-0.1) K/uL Nucleated RBC % 0.0 /100WBC Nucleated RBCs # 0 K/uL INR 1.03 APTT 24.7 (18.6-31.3) SEC Lactate 0.6 (0.20-2.00) mmol/L Sodium (136-148) mmol/L Potassium (3.5-5.1) mmol/L Chloride (98-107) mmol/L Carbon Dioxide (21.0-32.0) mmol/L BUN (7.0-18.0) mg/dL Creatinine (0.8-1.3) mg/dL Est Cr Clr Drug Dosing Estimated GFR (MDRD) ml/min Glucose (74-106) mg/dL Calcium (8.5-10.1) mg/dL Phosphorus (2.6-4.7) mg/dL Magnesium (1.8-2.4) mg/dL Total Bilirubin (0.2-1.0) mg/dL AST (15-37) IU/L ALT (14-63) IU/L Alkaline Phosphatase (46-116) U/L Troponin I (0.000-0.056) ng/mL Total Protein (6.4-8.2) g/dL Albumin (3.4-5.0) g/dL Globulin (2.6-4.0) g/dL Albumin/Globulin Ratio (0.9-1.6) Triglycerides (0-200) mg/dL Cholesterol (50-200) mg/dL LDL Cholesterol, Calc (60-180) mg/dL VLDL Cholesterol (5-55) mg/dL HDL Cholesterol (40-60) mg/dL Cholesterol/HDL Ratio (3.3-6.0) Urine Color Urine Appearance Urine pH (5.0-8.0) Ur Specific [place] (1.001-1.035) Urine Protein (NEGATIVE) mg/dL Urine Glucose (UA) (NEGATIVE) mg/dL Urine Ketones (NEGATIVE) mg/dL Urine Occult Blood (NEGATIVE) Urine Nitrite (NEGATIVE) Urine Bilirubin (NEGATIVE) Urine Urobilinogen (<2.0) EU/dL Ur Leukocyte Esterase (NEGATIVE) SARS-CoV-2 RNA (JULIANA) (NEGATIVE) 06/07/20 06/07/20 06/07/20 Range/Units 17:44 17:44 18:40 WBC (4.0-11.0) K/uL RBC (4.50-5.90) M/uL Hgb (13.0-17.0) g/dL Hct (38.0-50.0) % MCV (80.0-98.0) fL MCH (27.0-32.0) pg MCHC (31.0-37.0) g/dL RDW Std Deviation (28.0-62.0) fl RDW Coeff of Cat (11.0-15.0) % Plt Count (150-400) K/uL MPV (7.40-12.00) fL Neut % (Auto) (48.0-80.0) % Lymph % (Auto) (16.0-40.0) % [place] % (Auto) (0.0-15.0) % Eos % (Auto) (0.0-7.0) % Baso % (Auto) (0.0-1.5) % Neut # (Auto) (1.4-5.7) K/uL Lymph # (Auto) (0.6-2.4) K/uL [place] # (Auto) (0.0-0.8) K/uL Eos # (Auto) (0.0-0.7) K/uL Baso # (Auto) (0.0-0.1) K/uL Nucleated RBC % /100WBC Nucleated RBCs # K/uL INR APTT (18.6-31.3) SEC Lactate (0.20-2.00) mmol/L Sodium 144 (136-148) mmol/L Potassium 3.7 (3.5-5.1) mmol/L Chloride 104 (98-107) mmol/L Carbon Dioxide 29.6 (21.0-32.0) mmol/L BUN 23 H (7.0-18.0) mg/dL Creatinine 1.1 (0.8-1.3) mg/dL Est Cr Clr Drug Dosing TNP Estimated GFR (MDRD) > 60.0 ml/min Glucose 101 (74-106) mg/dL Calcium 9.1 (8.5-10.1) mg/dL Phosphorus (2.6-4.7) mg/dL Magnesium 2.3 (1.8-2.4) mg/dL Total Bilirubin 0.4 (0.2-1.0) mg/dL AST 16 (15-37) IU/L ALT 20 (14-63) IU/L Alkaline Phosphatase 82 (46-116) U/L Troponin I < 0.050 (0.000-0.056) ng/mL Total Protein 7.6 (6.4-8.2) g/dL Albumin 4.3 (3.4-5.0) g/dL Globulin 3.3 (2.6-4.0) g/dL Albumin/Globulin Ratio 1.3 (0.9-1.6) Triglycerides (0-200) mg/dL Cholesterol (50-200) mg/dL LDL Cholesterol, Calc (60-180) mg/dL VLDL Cholesterol (5-55) mg/dL HDL Cholesterol (40-60) mg/dL Cholesterol/HDL Ratio (3.3-6.0) Urine Color YELLOW Urine Appearance CLEAR Urine pH 8.0 (5.0-8.0) Ur Specific [place] 1.010 (1.001-1.035) Urine Protein NEGATIVE (NEGATIVE) mg/dL Urine Glucose (UA) NEGATIVE (NEGATIVE) mg/dL Urine Ketones NEGATIVE (NEGATIVE) mg/dL Urine Occult Blood NEGATIVE (NEGATIVE) Urine Nitrite NEGATIVE (NEGATIVE) Urine Bilirubin NEGATIVE (NEGATIVE) Urine Urobilinogen 0.2 (<2.0) EU/dL Ur Leukocyte Esterase NEGATIVE (NEGATIVE) SARS-CoV-2 RNA (JULIANA) (NEGATIVE) 06/07/20 06/08/20 06/08/20 Range/Units 18:52 05:45 05:45 WBC 5.87 (4.0-11.0) K/uL RBC 3.61 L (4.50-5.90) M/uL Hgb 11.4 L (13.0-17.0) g/dL Hct 34.6 L (38.0-50.0) % MCV 95.8 (80.0-98.0) fL MCH 31.6 (27.0-32.0) pg MCHC 32.9 (31.0-37.0) g/dL RDW Std Deviation 46.5 (28.0-62.0) fl RDW Coeff of Cat 13 (11.0-15.0) % Plt Count 189 (150-400) K/uL MPV 11.10 (7.40-12.00) fL Neut % (Auto) 66.9 (48.0-80.0) % Lymph % (Auto) 20.3 (16.0-40.0) % [place] % (Auto) 8.9 (0.0-15.0) % Eos % (Auto) 3.6 (0.0-7.0) % Baso % (Auto) 0.3 (0.0-1.5) % Neut # (Auto) 3.9 (1.4-5.7) K/uL Lymph # (Auto) 1.2 (0.6-2.4) K/uL [place] # (Auto) 0.5 (0.0-0.8) K/uL Eos # (Auto) 0.2 (0.0-0.7) K/uL Baso # (Auto) 0.0 (0.0-0.1) K/uL Nucleated RBC % 0.0 /100WBC Nucleated RBCs # 0 K/uL INR APTT (18.6-31.3) SEC Lactate (0.20-2.00) mmol/L Sodium 139 (136-148) mmol/L Potassium 3.6 (3.5-5.1) mmol/L Chloride 104 (98-107) mmol/L Carbon Dioxide 26.7 (21.0-32.0) mmol/L BUN 17 (7.0-18.0) mg/dL Creatinine 0.9 (0.8-1.3) mg/dL Est Cr Clr Drug Dosing 63.33 Estimated GFR (MDRD) > 60.0 ml/min Glucose 90 (74-106) mg/dL Calcium 8.7 (8.5-10.1) mg/dL Phosphorus 3.2 (2.6-4.7) mg/dL Magnesium 2.1 (1.8-2.4) mg/dL Total Bilirubin (0.2-1.0) mg/dL AST (15-37) IU/L ALT (14-63) IU/L Alkaline Phosphatase (46-116) U/L Troponin I (0.000-0.056) ng/mL Total Protein (6.4-8.2) g/dL Albumin (3.4-5.0) g/dL Globulin (2.6-4.0) g/dL Albumin/Globulin Ratio (0.9-1.6) Triglycerides 40 (0-200) mg/dL Cholesterol 128 (50-200) mg/dL LDL Cholesterol, Calc 65 (60-180) mg/dL VLDL Cholesterol 8 (5-55) mg/dL HDL Cholesterol 55 (40-60) mg/dL Cholesterol/HDL Ratio 2.3 L (3.3-6.0) Urine Color Urine Appearance Urine pH (5.0-8.0) Ur Specific [place] (1.001-1.035) Urine Protein (NEGATIVE) mg/dL Urine Glucose (UA) (NEGATIVE) mg/dL Urine Ketones (NEGATIVE) mg/dL Urine Occult Blood (NEGATIVE) Urine Nitrite (NEGATIVE) Urine Bilirubin (NEGATIVE) Urine Urobilinogen (<2.0) EU/dL Ur Leukocyte Esterase (NEGATIVE) SARS-CoV-2 RNA (JULIANA) NEGATIVE (NEGATIVE) Med Orders - Current: Current Medications Acetaminophen (Tylenol Extra Strength) 500 mg PO Q4H PRN PRN Reason: Headache/Pain Last Admin: 06/08/20 04:18 Dose: 500 mg Documented by: Albuterol/Ipratropium (Duoneb 3.0-0.5 Mg/3 Ml) 3 ml NEB Q4HRRT PRN PRN Reason: Shortness Of Breath/wheezing Apixaban (Eliquis) 2.5 mg PO BID [facility] Last Admin: 06/08/20 09:12 Dose: 2.5 mg Documented by: Aspirin (Halfprin) 81 mg PO DAILY [facility] Last Admin: 06/08/20 09:12 Dose: 81 mg Documented by: Atenolol (Tenormin) 12 mg PO ASDIRECTED [facility] Cephalexin (Keflex) 1,000 mg PO BID [facility] Last Admin: 06/08/20 09:12 Dose: 1,000 mg Documented by: Lactated Ringer's (Ringers, Lactated) 1,000 mls @ 100 mls/hr IV ASDIRECTED [facility] Last Admin: 06/08/20 07:20 Dose: 100 mls/hr Documented by: Labetalol HCl (Normodyne) 10 mg IVPUSH Q4H PRN; Protocol PRN Reason: Hypertension Non-Formulary Medication (Rosuvastatin Calcium [Crestor]) 40 mg PO DAILY [facility] Ondansetron HCl (Zofran) 4 mg IVPUSH Q4H PRN PRN Reason: Nausea/Vomiting Sodium Chloride (Saline Flush) 10 ml FLUSH ASDIRECTED PRN PRN Reason: Keep Vein Open Last Admin: 06/07/20 18:14 Dose: 10 ml Documented by: Sodium Chloride (Saline Flush) 2.5 ml FLUSH ASDIRECTED PRN PRN Reason: Keep Vein Open Last Admin: 06/07/20 18:14 Dose: 2.5 ml Documented by: Discontinued Medications Apixaban (Eliquis) 2.5 mg PO BID [facility] Aspirin (Aspirin) 324 mg PO ONETIME ONE Stop: 06/07/20 18:06 Last Admin: 06/07/20 18:14 Dose: Not Given Documented by: Lisinopril (Prinivil) 10 mg PO DAILY [facility] - Exam General: Alert, Oriented, Cooperative, No Acute Distress Lungs: Clear to Auscultation, Normal Respiratory Effort Cardiovascular: Regular Rate, Regular Rhythm GI/Abdominal Exam: Normal Bowel Sounds, Soft, Non-Tender, No Distention Extremities: Normal Inspection, No Pedal Edema Sepsis Event Note - Evaluation Sepsis Screening Result: No Definite Risk - Focused Exam Vital Signs: Vital Signs Pulse Resp BP Pulse Ox 06/08/20 04:00 64 14 161/74 H 96 06/08/20 00:00 60 14 145/70 H 97 06/07/20 21:22 64 14 136/96 H 98 - Problem List & Annotations (1) Dizziness SNOMED Code(s): 659980476, 925253128 Code(s): R42 - DIZZINESS AND GIDDINESS Status: Acute Current Visit: Yes (2) H/O carotid endarterectomy SNOMED Code(s): 089533387, 507395050 Code(s): Z98.890 - OTHER SPECIFIED POSTPROCEDURAL STATES Status: Acute Current Visit: Yes (3) CVA (cerebral vascular accident) SNOMED Code(s): 022129306 Code(s): I63.9 - CEREBRAL INFARCTION, UNSPECIFIED Status: Acute Current Visit: No Qualifiers: CVA mechanism: unspecified Qualified Code(s): I63.9 - Cerebral infarction, unspecified (4) Carotid stenosis Status: Chronic Current Visit: No Qualifiers: Laterality: left Qualified Code(s): I65.22 - Occlusion and stenosis of left carotid artery (5) HTN (hypertension) SNOMED Code(s): 01075223 Code(s): I10 - ESSENTIAL (PRIMARY) HYPERTENSION Status: Chronic Current Visit: No (6) Status post placement of implantable loop recorder SNOMED Code(s): 107006453, 917066391, 649445189 Code(s): Z95.818 - PRESENCE OF OTHER CARDIAC IMPLANTS AND GRAFTS Status: Acute Current Visit: Yes - Problem List Review Problem List Initiated/Reviewed/Updated: Yes - My Orders Last 24 Hours: My Active Orders 06/08/20 08:30 Code Status [Resuscitation Status] Routine 06/09/20 05:11 BASIC METABOLIC PANEL,BMP [CHEM] AM CBC WITH AUTO DIFF [HEME] AM - Plan Plan:: Assessment and Plan: 1. Dizziness in the setting of HTN: - CT head, CTA head and CTA neck were negative. MRI could not be obtained as patient has implanted loop recorder and can only have MRI done at [facility]. Patient reports feeling less dizzy this morning and his blood pressures have improved. Patient on telemetry. Patient to work with PT today. - IV labetalol prn SBP > 180 mm Hg. 2. DVT prophylaxis: - Patient is Eliquis. 3. Past medical history of CVA, HTN, HLD, CAD and carotid stenosis s/p endarterectomy: - Will continue home medications. Will consider resuming patient's lisinopril which he reports was discontinued by his PCP recently.
[2020-06-08] MEDS ORDERED: Rosuvastatin 10 MG Tab PO SCH (09:25)
[2020-06-08] MEDS ORDERED: Atenolol 25 MG Tab PO SCH (10:00)
[2020-06-08 11:43] VITALS: BP 154/71; PULSE 60
[2020-06-08] MEDS ORDERED: Ketorolac 30 MG/ML SDV IVPUSH ONE (12:15)
--- NOTE | 2020-06-08 14:59 | PCM.DCSUM1 ---
Discharge Summary - Hospital Course Free Text/Narrative:: 80-year-old male admitted for dizziness in the setting of HTN. He has a PMH of CVA, HTN, HLD, CAD, carotid stenosis s/p endarterectomy and has implanted loop recorder. On admission, patient's SBP was ~ [address] head, CTA head and CTA neck were negative. MRI was ordered and could not be obtained as he has implanted loop records. Per radiology, MRI can only be obtained at [facility] for this patient. Patient's blood pressures improved by day of d ischarge and he noted improvement in his dizziness. He was evaluated by PT prior to discharge. He was restarted on lisinopril 10 mg qd. MRI brain was scheduled at [facility] for patient prior to discharge with results being forwarded to his PCP Dr. Esteban. Advised to follow-up with PCP on discharge. - Discharge Data Discharge Date: 06/08/20 Discharge Disposition: Home, Self-Care 01 Condition: Stable - Referral to Home Health Primary Care Physician: Rui Esteban MD - Discharge Diagnosis/Problem(s) (1) Dizziness SNOMED Code(s): 216922734, 798130275 ICD Code: R42 - DIZZINESS AND GIDDINESS Status: Acute (2) H/O carotid endarterectomy SNOMED Code(s): 723421731, 394604304 ICD Code: Z98.890 - OTHER SPECIFIED POSTPROCEDURAL STATES Status: Acute (3) CVA (cerebral vascular accident) SNOMED Code(s): 192242463 ICD Code: I63.9 - CEREBRAL INFARCTION, UNSPECIFIED Status: Acute Qualifiers: CVA mechanism: unspecified Qualified Code(s): I63.9 - Cerebral infarction, unspecified (4) Carotid stenosis Status: Chronic Qualifiers: Laterality: left Qualified Code(s): I65.22 - Occlusion and stenosis of left carotid artery (5) HTN (hypertension) SNOMED Code(s): 62320688 ICD Code: I10 - ESSENTIAL (PRIMARY) HYPERTENSION Status: Chronic (6) Status post placement of implantable loop recorder SNOMED Code(s): 784560675, 047463776, 480989649 ICD Code: Z95.818 - PRESENCE OF OTHER CARDIAC IMPLANTS AND GRAFTS Status: Acute - Patient Summary/Data Consults: Consultations 06/07/20 22:54 PT Evaluation and Treatment [CONS] Routine - Patient Instructions Diet: Heart Healthy Diet Activity: As Tolerated Activity, Other: Use walker per physical therapy Notify Provider of: Fever, Increased Pain, Swelling and Redness, Drainage, Nausea and/or Vomiting Other/Special Instructions: worsening dizziness. worsening headache - Discharge Plan *PRESCRIPTION DRUG MONITORING PROGRAM REVIEWED*: Not Applicable *COPY OF PRESCRIPTION DRUG MONITORING REPORT IN PATIENT NEAL: Not Applicable Prescriptions/Med Rec: lisinopriL [Lisinopril] 10 mg PO DAILY 30 Days #30 tablet Home Medications: Home Meds atenoloL [Atenolol] 12 mg PO DAILY 08/01/14 [History] Aspirin [Halfprin] 1 tab PO DAILY 12/20/14 [History] Rosuvastatin Calcium [Crestor] 40 mg PO DAILY 01/05/18 [History] Apixaban [Eliquis] 2.5 mg PO BID 02/29/20 [History] cephALEXin [Keflex] 1,000 mg PO BID #40 cap 02/29/20 [Rx] lisinopriL [Lisinopril] 10 mg PO DAILY 30 Days #30 tablet 06/08/20 [Rx] Oxygen Therapy Mode: Room Air Patient Handouts: Lisinopril oral solution, Lisinopril tablets, Dizziness, [id number] Referrals: Rui Esteban MD [Primary Care Provider] - 06/15/20 3:15 pm - Discharge Summary/Plan Comment DC Time >30 min.: No - Patient Data Vitals - Most Recent: Last Vital Signs Temp 36.2 C 06/08/20 11:40 Pulse 60 06/08/20 11:40 Resp 22 H 06/08/20 11:40 BP 154/71 H 06/08/20 11:40 Pulse Ox 98 06/08/20 11:40 Orthostatic Blood Pressure [ 201/118 Standing] Orthostatic Blood Pressure [ 186/98 Sitting] Orthostatic Blood Pressure [ 157/77 Supine] Weight - Most Recent: 81.6 kg I&O - Last 24 hours: Intake & Output 06/07/20 06/08/20 06/08/20 22:59 06:59 14:59 Intake Total 75 Balance 75 Lab Results - Last 24 hrs: Laboratory Results - last 24 hr 06/07/20 06/07/20 06/07/20 Range/Units 17:44 17:44 17:44 WBC 5.33 (4.0-11.0) K/uL RBC 4.09 L (4.50-5.90) M/uL Hgb 13.1 (13.0-17.0) g/dL Hct 39.8 (38.0-50.0) % MCV 97.3 (80.0-98.0) fL MCH 32.0 (27.0-32.0) pg MCHC 32.9 (31.0-37.0) g/dL RDW Std Deviation 47.3 (28.0-62.0) fl RDW Coeff of Cat 13 (11.0-15.0) % Plt Count 217 (150-400) K/uL MPV 10.80 (7.40-12.00) fL Neut % (Auto) 55.6 (48.0-80.0) % Lymph % (Auto) 32.3 (16.0-40.0) % [place] % (Auto) 8.3 (0.0-15.0) % Eos % (Auto) 3.4 (0.0-7.0) % Baso % (Auto) 0.4 (0.0-1.5) % Neut # (Auto) 3.0 (1.4-5.7) K/uL Lymph # (Auto) 1.7 (0.6-2.4) K/uL [place] # (Auto) 0.4 (0.0-0.8) K/uL Eos # (Auto) 0.2 (0.0-0.7) K/uL Baso # (Auto) 0.0 (0.0-0.1) K/uL Nucleated RBC % 0.0 /100WBC Nucleated RBCs # 0 K/uL INR 1.03 APTT 24.7 (18.6-31.3) SEC Lactate 0.6 (0.20-2.00) mmol/L Sodium (136-148) mmol/L Potassium (3.5-5.1) mmol/L Chloride (98-107) mmol/L Carbon Dioxide (21.0-32.0) mmol/L BUN (7.0-18.0) mg/dL Creatinine (0.8-1.3) mg/dL Est Cr Clr Drug Dosing Estimated GFR (MDRD) ml/min Glucose (74-106) mg/dL Calcium (8.5-10.1) mg/dL Phosphorus (2.6-4.7) mg/dL Magnesium (1.8-2.4) mg/dL Total Bilirubin (0.2-1.0) mg/dL AST (15-37) IU/L ALT (14-63) IU/L Alkaline Phosphatase (46-116) U/L Troponin I (0.000-0.056) ng/mL Total Protein (6.4-8.2) g/dL Albumin (3.4-5.0) g/dL Globulin (2.6-4.0) g/dL Albumin/Globulin Ratio (0.9-1.6) Triglycerides (0-200) mg/dL Cholesterol (50-200) mg/dL LDL Cholesterol, Calc (60-180) mg/dL VLDL Cholesterol (5-55) mg/dL HDL Cholesterol (40-60) mg/dL Cholesterol/HDL Ratio (3.3-6.0) Urine Color Urine Appearance Urine pH (5.0-8.0) Ur Specific [place] (1.001-1.035) Urine Protein (NEGATIVE) mg/dL Urine Glucose (UA) (NEGATIVE) mg/dL Urine Ketones (NEGATIVE) mg/dL Urine Occult Blood (NEGATIVE) Urine Nitrite (NEGATIVE) Urine Bilirubin (NEGATIVE) Urine Urobilinogen (<2.0) EU/dL Ur Leukocyte Esterase (NEGATIVE) SARS-CoV-2 RNA (JULIANA) (NEGATIVE) 06/07/20 06/07/20 06/07/20 Range/Units 17:44 17:44 18:40 WBC (4.0-11.0) K/uL RBC (4.50-5.90) M/uL Hgb (13.0-17.0) g/dL Hct (38.0-50.0) % MCV (80.0-98.0) fL MCH (27.0-32.0) pg MCHC (31.0-37.0) g/dL RDW Std Deviation (28.0-62.0) fl RDW Coeff of Cat (11.0-15.0) % Plt Count (150-400) K/uL MPV (7.40-12.00) fL Neut % (Auto) (48.0-80.0) % Lymph % (Auto) (16.0-40.0) % [place] % (Auto) (0.0-15.0) % Eos % (Auto) (0.0-7.0) % Baso % (Auto) (0.0-1.5) % Neut # (Auto) (1.4-5.7) K/uL Lymph # (Auto) (0.6-2.4) K/uL [place] # (Auto) (0.0-0.8) K/uL Eos # (Auto) (0.0-0.7) K/uL Baso # (Auto) (0.0-0.1) K/uL Nucleated RBC % /100WBC Nucleated RBCs # K/uL INR APTT (18.6-31.3) SEC Lactate (0.20-2.00) mmol/L Sodium 144 (136-148) mmol/L Potassium 3.7 (3.5-5.1) mmol/L Chloride 104 (98-107) mmol/L Carbon Dioxide 29.6 (21.0-32.0) mmol/L BUN 23 H (7.0-18.0) mg/dL Creatinine 1.1 (0.8-1.3) mg/dL Est Cr Clr Drug Dosing TNP Estimated GFR (MDRD) > 60.0 ml/min Glucose 101 (74-106) mg/dL Calcium 9.1 (8.5-10.1) mg/dL Phosphorus (2.6-4.7) mg/dL Magnesium 2.3 (1.8-2.4) mg/dL Total Bilirubin 0.4 (0.2-1.0) mg/dL AST 16 (15-37) IU/L ALT 20 (14-63) IU/L Alkaline Phosphatase 82 (46-116) U/L Troponin I < 0.050 (0.000-0.056) ng/mL Total Protein 7.6 (6.4-8.2) g/dL Albumin 4.3 (3.4-5.0) g/dL Globulin 3.3 (2.6-4.0) g/dL Albumin/Globulin Ratio 1.3 (0.9-1.6) Triglycerides (0-200) mg/dL Cholesterol (50-200) mg/dL LDL Cholesterol, Calc (60-180) mg/dL VLDL Cholesterol (5-55) mg/dL HDL Cholesterol (40-60) mg/dL Cholesterol/HDL Ratio (3.3-6.0) Urine Color YELLOW Urine Appearance CLEAR Urine pH 8.0 (5.0-8.0) Ur Specific [place] 1.010 (1.001-1.035) Urine Protein NEGATIVE (NEGATIVE) mg/dL Urine Glucose (UA) NEGATIVE (NEGATIVE) mg/dL Urine Ketones NEGATIVE (NEGATIVE) mg/dL Urine Occult Blood NEGATIVE (NEGATIVE) Urine Nitrite NEGATIVE (NEGATIVE) Urine Bilirubin NEGATIVE (NEGATIVE) Urine Urobilinogen 0.2 (<2.0) EU/dL Ur Leukocyte Esterase NEGATIVE (NEGATIVE) SARS-CoV-2 RNA (JULIANA) (NEGATIVE) 06/07/20 06/08/20 06/08/20 Range/Units 18:52 05:45 05:45 WBC 5.87 (4.0-11.0) K/uL RBC 3.61 L (4.50-5.90) M/uL Hgb 11.4 L (13.0-17.0) g/dL Hct 34.6 L (38.0-50.0) % MCV 95.8 (80.0-98.0) fL MCH 31.6 (27.0-32.0) pg MCHC 32.9 (31.0-37.0) g/dL RDW Std Deviation 46.5 (28.0-62.0) fl RDW Coeff of Cat 13 (11.0-15.0) % Plt Count 189 (150-400) K/uL MPV 11.10 (7.40-12.00) fL Neut % (Auto) 66.9 (48.0-80.0) % Lymph % (Auto) 20.3 (16.0-40.0) % [place] % (Auto) 8.9 (0.0-15.0) % Eos % (Auto) 3.6 (0.0-7.0) % Baso % (Auto) 0.3 (0.0-1.5) % Neut # (Auto) 3.9 (1.4-5.7) K/uL Lymph # (Auto) 1.2 (0.6-2.4) K/uL [place] # (Auto) 0.5 (0.0-0.8) K/uL Eos # (Auto) 0.2 (0.0-0.7) K/uL Baso # (Auto) 0.0 (0.0-0.1) K/uL Nucleated RBC % 0.0 /100WBC Nucleated RBCs # 0 K/uL INR APTT (18.6-31.3) SEC Lactate (0.20-2.00) mmol/L Sodium 139 (136-148) mmol/L Potassium 3.6 (3.5-5.1) mmol/L Chloride 104 (98-107) mmol/L Carbon Dioxide 26.7 (21.0-32.0) mmol/L BUN 17 (7.0-18.0) mg/dL Creatinine 0.9 (0.8-1.3) mg/dL Est Cr Clr Drug Dosing 63.33 Estimated GFR (MDRD) > 60.0 ml/min Glucose 90 (74-106) mg/dL Calcium 8.7 (8.5-10.1) mg/dL Phosphorus 3.2 (2.6-4.7) mg/dL Magnesium 2.1 (1.8-2.4) mg/dL Total Bilirubin (0.2-1.0) mg/dL AST (15-37) IU/L ALT (14-63) IU/L Alkaline Phosphatase (46-116) U/L Troponin I (0.000-0.056) ng/mL Total Protein (6.4-8.2) g/dL Albumin (3.4-5.0) g/dL Globulin (2.6-4.0) g/dL Albumin/Globulin Ratio (0.9-1.6) Triglycerides 40 (0-200) mg/dL Cholesterol 128 (50-200) mg/dL LDL Cholesterol, Calc 65 (60-180) mg/dL VLDL Cholesterol 8 (5-55) mg/dL HDL Cholesterol 55 (40-60) mg/dL Cholesterol/HDL Ratio 2.3 L (3.3-6.0) Urine Color Urine Appearance Urine pH (5.0-8.0) Ur Specific Mcdowell (1.001-1.035) Urine Protein (NEGATIVE) mg/dL Urine Glucose (UA) (NEGATIVE) mg/dL Urine Ketones (NEGATIVE) mg/dL Urine Occult Blood (NEGATIVE) Urine Nitrite (NEGATIVE) Urine Bilirubin (NEGATIVE) Urine Urobilinogen (<2.0) EU/dL Ur Leukocyte Esterase (NEGATIVE) SARS-CoV-2 RNA (JULIANA) NEGATIVE (NEGATIVE) Med Orders - Current: Current Medications Acetaminophen (Tylenol Extra Strength) 500 mg PO Q4H PRN PRN Reason: Headache/Pain Last Admin: 06/08/20 10:21 Dose: 500 mg Documented by: Albuterol/Ipratropium (Duoneb 3.0-0.5 Mg/3 Ml) 3 ml NEB Q4HRRT PRN PRN Reason: Shortness Of Breath/wheezing Apixaban (Eliquis) 2.5 mg PO BID [facility] Last Admin: 06/08/20 09:12 Dose: 2.5 mg Documented by: Aspirin (Halfprin) 81 mg PO DAILY [facility] Last Admin: 06/08/20 09:12 Dose: 81 mg Documented by: Atenolol (Tenormin) 12.5 mg PO DAILY [facility] Last Admin: 06/08/20 10:22 Dose: 12.5 mg Documented by: Cephalexin (Keflex) 1,000 mg PO BID [facility] Last Admin: 06/08/20 09:12 Dose: 1,000 mg Documented by: Lactated Ringer's (Ringers, Lactated) 1,000 mls @ 100 mls/hr IV ASDIRECTED [facility] Last Admin: 06/08/20 07:20 Dose: 100 mls/hr Documented by: Labetalol HCl (Normodyne) 10 mg IVPUSH Q4H PRN; Protocol PRN Reason: Hypertension Ondansetron HCl (Zofran) 4 mg IVPUSH Q4H PRN PRN Reason: Nausea/Vomiting Rosuvastatin Calcium (Crestor) 40 mg PO DAILY [facility] Last Admin: 06/08/20 10:20 Dose: 40 mg Documented by: Sodium Chloride (Saline Flush) 10 ml FLUSH ASDIRECTED PRN PRN Reason: Keep Vein Open Last Admin: 06/07/20 18:14 Dose: 10 ml Documented by: Sodium Chloride (Saline Flush) 2.5 ml FLUSH ASDIRECTED PRN PRN Reason: Keep Vein Open Last Admin: 06/07/20 18:14 Dose: 2.5 ml Documented by: Discontinued Medications Apixaban (Eliquis) 2.5 mg PO BID [facility] Aspirin (Aspirin) 324 mg PO ONETIME ONE Stop: 06/07/20 18:06 Last Admin: 06/07/20 18:14 Dose: Not Given Documented by: Atenolol (Tenormin) 12 mg PO ASDIRECTED [facility] Ketorolac Tromethamine (Toradol) 15 mg IVPUSH ONETIME ONE Stop: 06/08/20 12:16 Last Admin: 06/08/20 12:39 Dose: 15 mg Documented by: Lisinopril (Prinivil) 10 mg PO DAILY [facility] Non-Formulary Medication (Rosuvastatin Calcium [Crestor]) 40 mg PO DAILY [facility] Last Admin: 06/08/20 10:48 Dose: Not Given Documented by:
== END 2020-06-08 16:10 | disposition home or self-care (01) ==
LOC: MW.ED 17:38 → MW.MS 19:55
PROVIDERS: ADMIT Student in an Organized Health Care Education/Training Program; ATTEND Student in an Organized Health Care Education/Training Program
DX: R42 Dizziness and giddiness (principal); Z86.73 Personal history of transient ischemic attack (TIA), and cerebral infarction without residual deficits; I10 Essential (primary) hypertension; I25.10 Atherosclerotic heart disease of native coronary artery without angina pectoris; S56.129A Laceration of flexor muscle, fascia and tendon of unspecified finger at forearm level, initial encounter; Z79.01 Long term (current) use of anticoagulants; Z98.890 Other specified postprocedural states; Z79.899 Other long term (current) drug therapy; Z79.82 Long term (current) use of aspirin; E78.00 Pure hypercholesterolemia, unspecified; Z20.828 Contact with and (suspected) exposure to other viral communicable diseases
CPT/HCPCS: 36415; 70450; 70496; 70498; 71045; 80048; 80053; 80061; 81003; 83605; 83735; 84100; 84484; 85025; 85610; 85730; 93005; 97161; 99285; A9270; J1885; J7120; U0002; 96374; 99284; G0378

== ENCOUNTER 2020-10-22 12:16 | Observation (INO) | payer MEDICARE, BC ==
[2020-10-22] MEDS ORDERED: Sodium Chloride 0.9% 10 ML SDV IV PRN (12:46)
[2020-10-22] MEDS ORDERED: Sodium Chloride 0.9% 2.5 ML Syringe FLUSH PRN (12:46)
[2020-10-22] MEDS ORDERED: Sodium Chloride 0.9% 10 ML Syringe FLUSH PRN (12:46)
--- NOTE | 2020-10-22 12:58 | EDM.PDOC ---
ED HPI GENERAL MEDICAL PROBLEM - General Chief Complaint: Neuro Symptoms/Deficits Stated Complaint: DIZZY Time Seen by Provider: 10/22/20 12:31 Source of Information: Reports: Patient, Family History Limitations: Reports: No Limitations - History of Present Illness INITIAL COMMENTS - FREE TEXT/NARRATIVE: HISTORY AND PHYSICAL: History of present illness: The patient is an 80-year-old male who presents with intermittent dizziness for the last 4 days. The patient was at work, he is a spot welder, and started feeling increased dizziness. He had some difficulty dialing his flip phone. And could not drive his truck to his son's, which is a short distance. He does not appreciate any modifiers. He has a history of chronic dizziness, CVA, TIA, HTN, hyperlipidemia, tinnitus, CAD, carotid stenosis status post carotid endarterectomy. He is currently on an anticoagulant (Eliquis). He states he takes his Eliquis every morning, however, he does not take it every night. He has currently introduced hemp oil to his daily regime but does not take it routinely. He woke up with a headache this morning. He has some photosensitivity. He often wakes up with a headache. He states he has had right arm pain for about 2 weeks. He denies fatigue. Patient denies any fever, chills, change in vision, syncope or near syncope. Denies any chest pain, back pain, shortness of breath or cough. Denies any abdominal pain, nausea, vomiting, diarrhea, constipation or dysuria. Has not noted any blood in urine or stool. Patient has been eating and drinking appropriately. Denies any recent illness in the last 2 weeks. Review of systems: As per history of present illness and below otherwise all systems reviewed and negative. Past medical history: As per history of present illness and as reviewed below otherwise noncontributory. Surgical history: As per history of present illness and as reviewed below otherwise noncontributory. Social history: See social history for further information Family history: As per history of present illness and as reviewed below otherwise noncontributory. Physical exam: General: Well developed and well nourished. Alert and orientated x 3. Nontoxic in appearance and in no acute distress. Vital signs are stable and have been reviewed by me. Nursing notes were reviewed. HEENT: Atraumatic, normocephalic, pupils equal and reactive bilaterally, negative for conjunctival pallor or scleral icterus, mucous membranes moist, neck supple, nontender, trachea midline. No drooling or trismus noted. No meningeal signs. No hot potato voice noted. Lungs: Clear to auscultation bilaterally. No wheezes, rales, or rhonchi. Chest nontender. Normal work of breathing, no accessory muscles used. Heart: S1S2, regular rate and rhythm without overt murmur, gallops, or rubs. No JVD. No peripheral edema Abdomen: Soft, nondistended, nontender. Normoactive bowel sounds. Negative for masses or costovertebral tenderness. Skin: Intact, warm, dry. No lesions or rashes noted. Hematologic: No petechiae or purpra. Mucosa appropriate color and normal nail bed color and refill. Extremities: Atraumatic, moves all extremities per self without difficulty or deficits, negative for cords or calf pain. Neurovascular unremarkable. Neuro: Awake, alert, oriented. Cranial nerves II through XII unremarkable. Cerebellum unremarkable. Patient has chronic balance difficulty and requires a cane for ambulation. Sensory unremarkable throughout. Exam nonfocal. Psychiatric: Mood and affect are appropriate. Normal thought process. Answering questions appropriately. Notes: *This patient was seen and evaluated during the 2019 SARS-CoV-2 novel coronavirus pandemic period. Community viral transmission is ongoing at time of this encounter and the emergency department is operating under pandemic response procedures. Patient son is at the bedside. Patient and patient's son is agreeable to labs, imaging and EKG. EKG is interpreted by DR. Lee as Sinus Rhythm. CXR: Impression per radiology: No active disease seen in the chest. Head CT: Impression per radiology: No sign of acute injury to the brain. Stable old infarcts in the left posterior distal RAMONA territory and in the distal high left mid MCA territory. Stable moderate ex vacuo dilatation of the left lateral ventricle. Stable moderate, age-appropriate atrophy and moderate, age-appropria te small-vessel ischemic changes. Labs are unremarkable. Patient continues with dizziness. I spoke with the family and the patient regarding all diagnostics, and they did not feel comfortable going home due to the patient's past medical history of CVA, and his present increasing dizziness and in stability. Hospitalist paged for possible admission. Patient stated PETE is better. Offered medication for PETE, patient had declined previously, but accepted now. Acetaminophen ordered. Spoke with Dr. Rod regarding admission. She would like a repeat troponin and angio CT of head and neck. Spoke with patient regarding needed test and he is agreeable. Pending results. COVID-19 is negative. Repeat Troponin is negative. Awaiting CTA reading. CTA Radiologist preliminary results: No proximal large vessel occlusion. Mild (less than 50 percent) atherosclerotic narrowing of the proximal right cervical internal carotid artery.Results of repeat Troponin and CTA communicated to Dr. Rod, who is agreeable to admission. Patient to be placed on telemetry. Patient is agreeable to the plan. Diagnostics: CBC, CMP, Troponin, UA, PT, PTT, TSH, EKG, CXR, CT, CTA Therapeutics: Acetaminophen 650mg Impression: Dizziness Right arm pain Plan: Patient to be placed in OBS with Telemetry. Definitive disposition and diagnosis as appropriate pending reevaluation and review of above. Right arm Pain Score (Numeric/FACES): 5 - Related Data Allergies Allergy/AdvReac Type Severity Reaction Status Date / Time No Known Allergies Allergy Verified 10/22/20 12:46 Home Meds: Home Meds atenoloL [Atenolol] 12 mg PO DAILY 08/01/14 [History] Aspirin [Halfprin] 1 tab PO DAILY 12/20/14 [History] Rosuvastatin Calcium [Crestor] 40 mg PO DAILY 01/05/18 [History] Apixaban [Eliquis] 2.5 mg PO BID 02/29/20 [History] lisinopriL [Lisinopril] 10 mg PO DAILY 30 Days #30 tablet 06/08/20 [Rx] Past Medical History HEENT History: Reports: Cataract Other HEENT History: wears glasses Cardiovascular History: Reports: High Cholesterol, Hypertension Respiratory History: Reports: None Other Respiratory History: FORMER SMOKER Gastrointestinal History: Reports: None Genitourinary History: Reports: BPH Musculoskeletal History: Reports: Amputation, Arthritis Other Musculoskeletal History: amputation of right thumb Neurological History: Reports: CVA Other Neuro History: 2008, still taking Plavix Psychiatric History: Reports: None Endocrine/Metabolic History: Reports: None Hematologic History: Reports: None Immunologic History: Reports: None Oncologic (Cancer) History: Reports: Other (See Below) Other Oncologic History: some type of skin cancer removed from chest Dermatologic History: Reports: None - Infectious Disease History Infectious Disease History: Reports: Chicken Pox, Measles, Mumps - Past Surgical History Head Surgeries/Procedures: Reports: None HEENT Surgical History: Reports: Eye Surgery Other HEENT Surgeries/Procedures: removal of foreign body right eye Cardiovascular Surgical History: Reports: Carotid Endarterectomy Respiratory Surgical History: Reports: None GI Surgical History: Reports: Other (See Below) Other GI Surgeries/Procedures: PEG tube Male Surgical History: Reports: None Endocrine Surgical History: Reports: None Neurological Surgical History: Reports: Thoracic Spine Musculoskeletal Surgical History: Reports: Amputation Other Musculoskeletal Surgeries/Procedures:: right thumb Oncologic Surgical History: Reports: None Dermatological Surgical History: Reports: None Social & Family History - Family History Family Medical History: No Pertinent Family History - Caffeine Use Caffeine Use: Reports: None - Living Situation & Occupation Living situation: Reports: Occupation: Retired ED ROS GENERAL - Review of Systems Review Of Systems: Comprehensive ROS is negative, except as noted in HPI. ED EXAM, NEURO - Physical Exam Exam: See Below (See dictation) Course - Vital Signs Last Recorded V/S: Last Vital Signs Temp 96.9 F 10/22/20 12:40 Pulse 63 10/22/20 13:55 Resp 14 10/22/20 13:55 BP 112/49 L 10/22/20 13:55 Pulse Ox 96 10/22/20 13:55 - Orders/Labs/Meds Orders: Active Orders 24 hr Category Date Time Status Admission Status [Patient Status] [ADT] Stat ADT 10/22/20 17:36 Ordered Cardiac Monitoring [RC] . DIRECTED Care 10/22/20 12:46 Active EKG Documentation Completion [RC] STAT Care 10/22/20 12:46 Active NIH Stroke Scale [RC] ASDIRECTED Care 10/22/20 12:46 Active Stroke Education, General [RC] Click to Edit Care 10/22/20 12:46 Active Sodium Chloride 0.9% [Normal Saline] Med 10/22/20 12:46 Active 10 ml IV ASDIRECTED PRN Sodium Chloride 0.9% [Saline Flush] Med 10/22/20 12:46 Active 10 ml FLUSH ASDIRECTED PRN Sodium Chloride 0.9% [Saline Flush] Med 10/22/20 12:46 Active 2.5 ml FLUSH ASDIRECTED PRN Peripheral IV Insertion Adult [OM.PC] Stat Oth 10/22/20 12:46 Ordered Medication Orders Sodium Chloride (Sodium Chloride 0.9% 10 Ml Syringe) 10 ml FLUSH ASDIRECTED PRN PRN Reason: Keep Vein Open Last Admin: 10/22/20 13:21 Dose: 10 ml Documented by: DAVID Sodium Chloride (Sodium Chloride 0.9% 2.5 Ml Syringe) 2.5 ml FLUSH ASDIRECTED PRN PRN Reason: Keep Vein Open Last Admin: 10/22/20 13:20 Dose: 2.5 ml Documented by: DAVID Sodium Chloride (Sodium Chloride 0.9% 10 Ml Sdv) 10 ml IV ASDIRECTED PRN PRN Reason: IV Use Last Admin: 10/22/20 13:22 Dose: 10 ml Documented by: DAVID Labs: Laboratory Tests 10/22/20 10/22/20 10/22/20 Range/Units 13:11 13:11 13:11 WBC 9.31 (4.0-11.0) K/uL RBC 3.82 L (4.50-5.90) M/uL Hgb 12.9 L (13.0-17.0) g/dL Hct 37.4 L (38.0-50.0) % MCV 97.9 (80.0-98.0) fL MCH 33.8 H (27.0-32.0) pg MCHC 34.5 (31.0-37.0) g/dL RDW Std Deviation 49.9 (28.0-62.0) fl RDW Coeff of Cat 14 (11.0-15.0) % Plt Count 182 (150-400) K/uL MPV 11.50 (7.40-12.00) fL Neut % (Auto) 84.7 H (48.0-80.0) % Lymph % (Auto) 8.5 L (16.0-40.0) % [place] % (Auto) 5.3 (0.0-15.0) % Eos % (Auto) 1.3 (0.0-7.0) % Baso % (Auto) 0.2 (0.0-1.5) % Neut # (Auto) 7.9 H (1.4-5.7) K/uL Lymph # (Auto) 0.8 (0.6-2.4) K/uL [place] # (Auto) 0.5 (0.0-0.8) K/uL Eos # (Auto) 0.1 (0.0-0.7) K/uL Baso # (Auto) 0.0 (0.0-0.1) K/uL Nucleated RBC % 0.0 /100WBC Nucleated RBCs # 0 K/uL INR 1.05 APTT 23.6 (18.6-31.3) SEC Sodium 144 (136-148) mmol/L Potassium 3.9 (3.5-5.1) mmol/L Chloride 107 (98-107) mmol/L Carbon Dioxide 28.0 (21.0-32.0) mmol/L BUN 34 H (7.0-18.0) mg/dL Creatinine 1.1 (0.8-1.3) mg/dL Est Cr Clr Drug Dosing 49.83 mL/min Estimated GFR (MDRD) > 60.0 ml/min Glucose 106 (74-106) mg/dL Calcium 9.2 (8.5-10.1) mg/dL Total Bilirubin 0.4 (0.2-1.0) mg/dL AST 13 L (15-37) IU/L ALT 24 (14-63) IU/L Alkaline Phosphatase 64 (46-116) U/L Troponin I < 0.050 (0.000-0.056) ng/mL Total Protein 7.4 (6.4-8.2) g/dL Albumin 4.2 (3.4-5.0) g/dL Globulin 3.2 (2.6-4.0) g/dL Albumin/Globulin Ratio 1.3 (0.9-1.6) TSH 3rd Generation 0.96 (0.36-3.74) uIU/mL Urine Color Urine Appearance Urine pH (5.0-8.0) Ur Specific [place] (1.001-1.035) Urine Protein (NEGATIVE) mg/dL Urine Glucose (UA) (NEGATIVE) mg/dL Urine Ketones (NEGATIVE) mg/dL Urine Occult Blood (NEGATIVE) Urine Nitrite (NEGATIVE) Urine Bilirubin (NEGATIVE) Urine Urobilinogen (<2.0) EU/dL Ur Leukocyte Esterase (NEGATIVE) U Hyaline Cast (Auto) (0-2/LPF) Urine RBC (0-2/HPF) Urine WBC (0-5/HPF) Ur Squamous Epith Cells Urine Mucus (NONE-MOD) SARS-CoV-2 RNA (JULIANA) (NEGATIVE) 10/22/20 10/22/20 10/22/20 Range/Units 14:11 14:40 16:03 WBC (4.0-11.0) K/uL RBC (4.50-5.90) M/uL Hgb (13.0-17.0) g/dL Hct (38.0-50.0) % MCV (80.0-98.0) fL MCH (27.0-32.0) pg MCHC (31.0-37.0) g/dL RDW Std Deviation (28.0-62.0) fl RDW Coeff of Cat (11.0-15.0) % Plt Count (150-400) K/uL MPV (7.40-12.00) fL Neut % (Auto) (48.0-80.0) % Lymph % (Auto) (16.0-40.0) % [place] % (Auto) (0.0-15.0) % Eos % (Auto) (0.0-7.0) % Baso % (Auto) (0.0-1.5) % Neut # (Auto) (1.4-5.7) K/uL Lymph # (Auto) (0.6-2.4) K/uL [place] # (Auto) (0.0-0.8) K/uL Eos # (Auto) (0.0-0.7) K/uL Baso # (Auto) (0.0-0.1) K/uL Nucleated RBC % /100WBC Nucleated RBCs # K/uL INR APTT (18.6-31.3) SEC Sodium (136-148) mmol/L Potassium (3.5-5.1) mmol/L Chloride (98-107) mmol/L Carbon Dioxide (21.0-32.0) mmol/L BUN (7.0-18.0) mg/dL Creatinine (0.8-1.3) mg/dL Est Cr Clr Drug Dosing mL/min Estimated GFR (MDRD) ml/min Glucose (74-106) mg/dL Calcium (8.5-10.1) mg/dL Total Bilirubin (0.2-1.0) mg/dL AST (15-37) IU/L ALT (14-63) IU/L Alkaline Phosphatase (46-116) U/L Troponin I < 0.050 (0.000-0.056) ng/mL Total Protein (6.4-8.2) g/dL Albumin (3.4-5.0) g/dL Globulin (2.6-4.0) g/dL Albumin/Globulin Ratio (0.9-1.6) TSH 3rd Generation (0.36-3.74) uIU/mL Urine Color YELLOW Urine Appearance CLEAR Urine pH 5.0 (5.0-8.0) Ur Specific [place] >= 1.030 (1.001-1.035) Urine Protein TRACE H (NEGATIVE) mg/dL Urine Glucose (UA) NEGATIVE (NEGATIVE) mg/dL Urine Ketones NEGATIVE (NEGATIVE) mg/dL Urine Occult Blood TRACE-INTACT H (NEGATIVE) Urine Nitrite NEGATIVE (NEGATIVE) Urine Bilirubin NEGATIVE (NEGATIVE) Urine Urobilinogen 0.2 (<2.0) EU/dL Ur Leukocyte Esterase NEGATIVE (NEGATIVE) U Hyaline Cast (Auto) 10-15 (0-2/LPF) Urine RBC 0-1 (0-2/HPF) Urine WBC 0-1 (0-5/HPF) Ur Squamous Epith Cells MODERATE Urine Mucus HEAVY (NONE-MOD) SARS-CoV-2 RNA (JULIANA) NEGATIVE (NEGATIVE) Meds: Medications Generic Name Dose Route Start Last Admin Trade Name Freq PRN Reason Stop Dose Admin Sodium Chloride 10 ml 10/22/20 12:46 10/22/20 13:21 Sodium Chloride 0.9% 10 Ml Syringe FLUSH 10 ml ASDIRECTED PRN Administration Keep Vein Open Sodium Chloride 2.5 ml 10/22/20 12:46 10/22/20 13:20 Sodium Chloride 0.9% 2.5 Ml Syringe FLUSH 2.5 ml ASDIRECTED PRN Administration Keep Vein Open Sodium Chloride 10 ml 10/22/20 12:46 10/22/20 13:22 Sodium Chloride 0.9% 10 Ml Sdv IV 10 ml ASDIRECTED PRN Administration IV Use Discontinued Medications Generic Name Dose Route Start Last Admin Trade Name Freq PRN Reason Stop Dose Admin Acetaminophen 650 mg 10/22/20 14:40 10/22/20 14:47 Acetaminophen 325 Mg Tab PO 10/22/20 14:41 650 mg NOW ONE Administration Iopamidol 100 ml 10/22/20 16:44 10/22/20 16:44 Iopamidol 755 Mg/Ml 500 Ml Multipack Bottle IVPUSH 10/22/20 16:45 100 ml ONETIME STA Administration Departure - Departure Time of Disposition: 17:43 Disposition: Refer to Observation Condition: Good Clinical Impression: Dizziness, Right arm pain - Discharge Information *PRESCRIPTION DRUG MONITORING PROGRAM REVIEWED*: Not Applicable *COPY OF PRESCRIPTION DRUG MONITORING REPORT IN PATIENT NEAL: Not Applicable Referrals: Rui Esteban MD [Primary Care Provider] - Forms: ED Department Discharge Sepsis Event Note (ED) - Evaluation Sepsis Screening Result: No Definite Risk - Focused Exam Vital Signs: Vital Signs Temp Pulse Resp BP Pulse Ox 10/22/20 13:55 63 14 112/49 L 96 10/22/20 12:40 96.9 F 70 18 132/67 95 - My Orders Last 24 Hours: My Active Orders 10/22/20 12:46 Cardiac Monitoring [RC] . DIRECTED EKG Documentation Completion [RC] STAT NIH Stroke Scale [RC] ASDIRECTED Stroke Education, General [RC] Click to Edit Sodium Chloride 0.9% [Normal Saline] 10 ml IV ASDIRECTED PRN Sodium Chloride 0.9% [Saline Flush] 10 ml FLUSH ASDIRECTED PRN Sodium Chloride 0.9% [Saline Flush] 2.5 ml FLUSH ASDIRECTED PRN Peripheral IV Insertion Adult [OM.PC] Stat 10/22/20 17:36 Admission Status [Patient Status] [ADT] Stat - Assessment/Plan Last 24 Hours: My Active Orders 10/22/20 12:46 Cardiac Monitoring [RC] . DIRECTED EKG Documentation Completion [RC] STAT NIH Stroke Scale [RC] ASDIRECTED Stroke Education, General [RC] Click to Edit Sodium Chloride 0.9% [Normal Saline] 10 ml IV ASDIRECTED PRN Sodium Chloride 0.9% [Saline Flush] 10 ml FLUSH ASDIRECTED PRN Sodium Chloride 0.9% [Saline Flush] 2.5 ml FLUSH ASDIRECTED PRN Peripheral IV Insertion Adult [OM.PC] Stat 10/22/20 17:36 Admission Status [Patient Status] [ADT] Stat
--- NOTE | 2020-10-22 13:21 | PCM.SN.2 ---
- Free Text/Narrative Note: EKG done at 10 sinus rhythm with a heart rate of 66 FL 120 axis 64 increased voltage consistent with LVH and the patient has a comparison 06/07/2020 no change impression no acute injury
--- NOTE | 2020-10-22 13:38 | CT ---
INDICATION: Dizziness. Stroke protocol. COMPARISON: 06/07/2020 TECHNIQUE: CT examination of the head was performed with 5 mm thick axial and 2 mm thick coronal and sagittal sections without intravenous contrast. Images were obtained from the vertex of the skull through the skull base, and I examined the images with the brain and bone windows. Please note that all CT scans at this facility use dose modulation, iterative reconstruction, and/or weight-based dosing when appropriate to reduce radiation dose to as low as reasonably achievable. FINDINGS: There is stable moderate encephalomalacia of the medial posterior left high parietal cortex and subcortical white matter, consistent with an old distal left RAMONA infarct. There is stable mild encephalomalacia in the left high mid-posterior parietal cortex and subcortical white matter consistent with an old distal left mid MCA infarct. There is stable moderate ex vacuo dilatation of the left lateral ventricle as a result. There is stable moderate left greater than right periventricular and subcortical white matter hypodensity from age-appropriate small-vessel ischemia. There is stable moderate dilatation of the ventricles and sulci elsewhere in the brain. There is no sign of mass lesion, mass effect, hemorrhage, or edema. The visualized portions of the orbits are normal in appearance with stable changes of cataract surgery. The visualized paranasal sinuses and mastoids are clear. The osseous structures are normal in their appearance with no sign of abnormality in the skull base or calvarium. IMPRESSION: No sign of acute injury to the brain. Stable old infarcts in the left posterior distal RAMONA territory and in the distal high left mid MCA territory. Stable moderate ex vacuo dilatation of the left lateral ventricle. Stable moderate, age-appropriate atrophy and moderate, age-appropriate small-vessel ischemic changes. Please note that all CT scans at this facility use dose modulation, iterative reconstruction, and/or weight-based dosing when appropriate to reduce radiation dose to as low as reasonably achievable. Dictated by Kingsley Fox MD @ Oct 22 2020 1:32PM Signed by Dr. Kingsley Fox @ Oct 22 2020 1:37PM
--- NOTE | 2020-10-22 13:42 | CR ---
HISTORY: Dizziness COMPARISON: 06/07/2020 FINDINGS: A portable erect AP view of the chest was obtained at 1255 hours. The lungs remain clear. No focal or diffuse infiltrates are present. The heart remains normal in size. Again seen is an electronic device in the left lower chest, adjacent to the left heart border. The mediastinum is normal in appearance. The osseous structures are normal in appearance for the patient`s age. IMPRESSION: No active disease seen in the chest. Dictated by Kingsley Fox MD @ Oct 22 2020 1:32PM Signed by Dr. Kingsley Fox @ Oct 22 2020 1:40PM
[2020-10-22 14:00] LABS: BLOOD UREA NITROGEN,BUN 34 mg/dL (7.0-18.0); CHLORIDE,CL 107 mmol/L (98-107); GLUCOSE RANDOM 106 mg/dL (74-106); POTASSIUM,K 3.9 mmol/L (3.5-5.1); SODIUM,NA 144 mmol/L (136-148)
[2020-10-22] MEDS ORDERED: Acetaminophen 325 MG Tab PO ONE (14:40)
[2020-10-22] MEDS ORDERED: Iopamidol 755 MG/ML 500 ML Multipack Bottle IVPUSH STA (16:44)
--- NOTE | 2020-10-22 17:30 | CT ---
DATE: 10/22/2020. CLINICAL HISTORY: Patient with acute neurological deficit. TECHNIQUE: Standard helical CT image acquisition through the head and neck was performed after intravenous contrast bolus enhancement. Multiplanar reconstructed images were performed and interpreted. COMPARISON: 06/07/2020. FINDINGS: The origin of the right vertebral artery is not included on the field of view of this examination. The origin of the left vertebral artery is patent. The common carotid arteries are patent. There is predominantly noncalcified atherosclerotic plaque involving the right carotid bifurcation extending into the carotid bulb resulting and mild (less than 50 percent) luminal stenosis of the proximal ICA by NASCET criteria. There is associated luminal irregularity within ulcerative plaque at the level of the carotid bulb. Mild atherosclerosis of the left carotid bifurcation but without resulting luminal stenosis of the proximal ICA. The rest of the cervical segments of the internal carotid arteries are patent up to their intracranial segments. The cervical segments of the vertebral arteries are patent. There is scattered intracranial atherosclerotic disease but without resulting flow limiting luminal stenoses. No intracranial proximal large vessel occlusion. There is normal opacification of major intracranial venous structures. The visualized lung apices are unremarkable The thyroid gland is unremarkable. 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 IMPRESSION: 1. No intracranial proximal large vessel occlusion or flow-limiting luminal stenosis. 2. Mild (less than 50 percent) atherosclerotic luminal stenosis of the proximal right ICA by NASCET criteria with associated luminal irregularity and ulcerative plaque at the level of the carotid bulb. Please note that all CT scans at this facility use dose modulation, iterative reconstruction, and/or weight-based dosing when appropriate to reduce radiation dose to as low as reasonably achievable. Dictated by Alec Adkins MD @ Oct 22 2020 8:58PM Signed by Dr. Alec Adkins @ Oct 22 2020 8:58PM
--- NOTE | 2020-10-22 18:10 | PCM.HP.2 ---
<MarilinAlec ace - Last Filed: 10/22/20 20:19> H&P History of Present Illness - General Date of Service: 10/22/20 Admit Problem/Dx: Admission Diagnosis/Problem Admission Diagnosis/Problem Dizziness - History of Present Illness Initial Comments - Free Text/Narative: 80-year-old male admitted for stroke rule out and dizziness. PMH significant for several CVA, hypertension, hyperlipidemia, CAD, carotid stenosis s/p carotid endarterectomy, on Eliquis. Patient states that he has been feeling dizzy for the past 6 months but states recently in the last few days his dizziness has increased significantly. Patient states increasing dizziness this morning and prior to arrival in the ED required the help of 2 individuals support when trying to leave work. Patient also states that he does not drink enough water. When questioned patient states he had 1 Ensure today with no other liquids and states that he has hardly been drinking water in the past few days. Patient states he drinks soda occasionally. Patient also states that he feels his anti- hypertensive medications might be adding to his dizziness symptoms. Patient son also in the room with patient, patient son also states that his father has been significantly dizzy and lightheaded for a few days. Patient denies fever, chills, nausea, vomiting, abdominal pain, chest pain, shortness of breath. Patient denies any recent history of trauma. Patient states lightheadedness at times when rising from seated position. No proximal large vessel vessel occlusion noted on CTA head and neck. CT head negative, chest x-ray negative. Right arm Pain Score (Numeric/FACES): 5 - Related Data Allergies/Adverse Reactions: Allergies Allergy/AdvReac Type Severity Reaction Status Date / Time No Known Allergies Allergy Verified 10/22/20 19:44 Home Medications: Home Meds atenoloL [Atenolol] 12 mg PO DAILY 08/01/14 [History] Aspirin [Halfprin] 1 tab PO DAILY 12/20/14 [History] Rosuvastatin Calcium [Crestor] 40 mg PO DAILY 01/05/18 [History] Apixaban [Eliquis] 2.5 mg PO BID 02/29/20 [History] lisinopriL [Lisinopril] 10 mg PO DAILY 30 Days #30 tablet 06/08/20 [Rx] Past Medical History HEENT History: Reports: Cataract Other HEENT History: wears glasses Cardiovascular History: Reports: High Cholesterol, Hypertension Respiratory History: Reports: None Other Respiratory History: FORMER SMOKER Gastrointestinal History: Reports: None Genitourinary History: Reports: BPH Musculoskeletal History: Reports: Amputation, Arthritis Other Musculoskeletal History: amputation of right thumb Neurological History: Reports: CVA Other Neuro History: 2009, still taking Plavix Psychiatric History: Reports: None Endocrine/Metabolic History: Reports: None Hematologic History: Reports: None Immunologic History: Reports: None Oncologic (Cancer) History: Reports: Other (See Below) Other Oncologic History: some type of skin cancer removed from chest Dermatologic History: Reports: None - Infectious Disease History Infectious Disease History: Reports: Chicken Pox, Measles, Mumps - Past Surgical History Head Surgeries/Procedures: Reports: None HEENT Surgical History: Reports: Eye Surgery Other HEENT Surgeries/Procedures: removal of foreign body right eye Cardiovascular Surgical History: Reports: Carotid Endarterectomy Respiratory Surgical History: Reports: None Male Surgical History: Reports: None Endocrine Surgical History: Reports: None Neurological Surgical History: Reports: Thoracic Spine Musculoskeletal Surgical History: Reports: Amputation Other Musculoskeletal Surgeries/Procedures:: right thumb Oncologic Surgical History: Reports: None Dermatological Surgical History: Reports: None Social & Family History - Family History Family Medical History: No Pertinent Family History - Tobacco Use Tobacco Use Status *Q: Former Tobacco User Used Tobacco, but Quit: Yes Month/Year Tobacco Last Used: 08/1999 - Caffeine Use Caffeine Use: Reports: Soda - Recreational Drug Use Recreational Drug Use: No - Living Situation & Occupation Living situation: Reports: Occupation: Retired H&P Review of Systems - Review of Systems: Review Of Systems: See Below General: Denies: Fever, Chills, Weakness Pulmonary: Denies: Shortness of Breath, Wheezing Cardiovascular: Denies: Chest Pain, Palpitations Gastrointestinal: Denies: Abdominal Pain, Nausea Psychiatric: Denies: Confusion Neurological: Reports: Dizziness, Difficulty Walking, Weakness. Denies: Confusion, Headache, Numbness, Trouble Speaking Exam - Exam Exam: See Below - Vital Signs Vital Signs: Last Vital Signs Temp 96.9 F 10/22/20 12:40 Pulse 63 10/22/20 13:55 Resp 14 10/22/20 13:55 BP 112/49 L 10/22/20 13:55 Pulse Ox 96 10/22/20 13:55 Weight: 65.771 kg - Exam General: Alert, Oriented Lungs: Clear to Auscultation, Normal Respiratory Effort Cardiovascular: Regular Rate GI/Abdominal Exam: Normal Bowel Sounds, Soft, Non-Tender Back Exam: No: CVA Tenderness (L), CVA Tenderness (R) Extremities: No Pedal Edema Skin: Warm, Dry Neurological: Strength Equal Bilateral, Normal Speech, Sensation Intact Neuro Extensive - Mental Status: Alert, Oriented x3 Psychiatric: Alert - Patient Data Lab Results Last 24 hrs: Laboratory Results - last 24 hr 10/22/20 10/22/20 10/22/20 Range/Units 13:11 13:11 13:11 WBC 9.31 (4.0-11.0) K/uL RBC 3.82 L (4.50-5.90) M/uL Hgb 12.9 L (13.0-17.0) g/dL Hct 37.4 L (38.0-50.0) % MCV 97.9 (80.0-98.0) fL MCH 33.8 H (27.0-32.0) pg MCHC 34.5 (31.0-37.0) g/dL RDW Std Deviation 49.9 (28.0-62.0) fl RDW Coeff of Cat 14 (11.0-15.0) % Plt Count 182 (150-400) K/uL MPV 11.50 (7.40-12.00) fL Neut % (Auto) 84.7 H (48.0-80.0) % Lymph % (Auto) 8.5 L (16.0-40.0) % [place] % (Auto) 5.3 (0.0-15.0) % Eos % (Auto) 1.3 (0.0-7.0) % Baso % (Auto) 0.2 (0.0-1.5) % Neut # (Auto) 7.9 H (1.4-5.7) K/uL Lymph # (Auto) 0.8 (0.6-2.4) K/uL [place] # (Auto) 0.5 (0.0-0.8) K/uL Eos # (Auto) 0.1 (0.0-0.7) K/uL Baso # (Auto) 0.0 (0.0-0.1) K/uL Nucleated RBC % 0.0 /100WBC Nucleated RBCs # 0 K/uL INR 1.05 APTT 23.6 (18.6-31.3) SEC Sodium 144 (136-148) mmol/L Potassium 3.9 (3.5-5.1) mmol/L Chloride 107 (98-107) mmol/L Carbon Dioxide 28.0 (21.0-32.0) mmol/L BUN 34 H (7.0-18.0) mg/dL Creatinine 1.1 (0.8-1.3) mg/dL Est Cr Clr Drug Dosing 49.83 mL/min Estimated GFR (MDRD) > 60.0 ml/min Glucose 106 (74-106) mg/dL Calcium 9.2 (8.5-10.1) mg/dL Total Bilirubin 0.4 (0.2-1.0) mg/dL AST 13 L (15-37) IU/L ALT 24 (14-63) IU/L Alkaline Phosphatase 64 (46-116) U/L Troponin I < 0.050 (0.000-0.056) ng/mL Total Protein 7.4 (6.4-8.2) g/dL Albumin 4.2 (3.4-5.0) g/dL Globulin 3.2 (2.6-4.0) g/dL Albumin/Globulin Ratio 1.3 (0.9-1.6) TSH 3rd Generation 0.96 (0.36-3.74) uIU/mL Urine Color Urine Appearance Urine pH (5.0-8.0) Ur Specific [place] (1.001-1.035) Urine Protein (NEGATIVE) mg/dL Urine Glucose (UA) (NEGATIVE) mg/dL Urine Ketones (NEGATIVE) mg/dL Urine Occult Blood (NEGATIVE) Urine Nitrite (NEGATIVE) Urine Bilirubin (NEGATIVE) Urine Urobilinogen (<2.0) EU/dL Ur Leukocyte Esterase (NEGATIVE) U Hyaline Cast (Auto) (0-2/LPF) Urine RBC (0-2/HPF) Urine WBC (0-5/HPF) Ur Squamous Epith Cells Urine Mucus (NONE-MOD) SARS-CoV-2 RNA (JULIANA) (NEGATIVE) 10/22/20 10/22/20 10/22/20 Range/Units 14:11 14:40 16:03 WBC (4.0-11.0) K/uL RBC (4.50-5.90) M/uL Hgb (13.0-17.0) g/dL Hct (38.0-50.0) % MCV (80.0-98.0) fL MCH (27.0-32.0) pg MCHC (31.0-37.0) g/dL RDW Std Deviation (28.0-62.0) fl RDW Coeff of Cat (11.0-15.0) % Plt Count (150-400) K/uL MPV (7.40-12.00) fL Neut % (Auto) (48.0-80.0) % Lymph % (Auto) (16.0-40.0) % [place] % (Auto) (0.0-15.0) % Eos % (Auto) (0.0-7.0) % Baso % (Auto) (0.0-1.5) % Neut # (Auto) (1.4-5.7) K/uL Lymph # (Auto) (0.6-2.4) K/uL [place] # (Auto) (0.0-0.8) K/uL Eos # (Auto) (0.0-0.7) K/uL Baso # (Auto) (0.0-0.1) K/uL Nucleated RBC % /100WBC Nucleated RBCs # K/uL INR APTT (18.6-31.3) SEC Sodium (136-148) mmol/L Potassium (3.5-5.1) mmol/L Chloride (98-107) mmol/L Carbon Dioxide (21.0-32.0) mmol/L BUN (7.0-18.0) mg/dL Creatinine (0.8-1.3) mg/dL Est Cr Clr Drug Dosing mL/min Estimated GFR (MDRD) ml/min Glucose (74-106) mg/dL Calcium (8.5-10.1) mg/dL Total Bilirubin (0.2-1.0) mg/dL AST (15-37) IU/L ALT (14-63) IU/L Alkaline Phosphatase (46-116) U/L Troponin I < 0.050 (0.000-0.056) ng/mL Total Protein (6.4-8.2) g/dL Albumin (3.4-5.0) g/dL Globulin (2.6-4.0) g/dL Albumin/Globulin Ratio (0.9-1.6) TSH 3rd Generation (0.36-3.74) uIU/mL Urine Color YELLOW Urine Appearance CLEAR Urine pH 5.0 (5.0-8.0) Ur Specific [place] >= 1.030 (1.001-1.035) Urine Protein TRACE H (NEGATIVE) mg/dL Urine Glucose (UA) NEGATIVE (NEGATIVE) mg/dL Urine Ketones NEGATIVE (NEGATIVE) mg/dL Urine Occult Blood TRACE-INTACT H (NEGATIVE) Urine Nitrite NEGATIVE (NEGATIVE) Urine Bilirubin NEGATIVE (NEGATIVE) Urine Urobilinogen 0.2 (<2.0) EU/dL Ur Leukocyte Esterase NEGATIVE (NEGATIVE) U Hyaline Cast (Auto) 10-15 (0-2/LPF) Urine RBC 0-1 (0-2/HPF) Urine WBC 0-1 (0-5/HPF) Ur Squamous Epith Cells MODERATE Urine Mucus HEAVY (NONE-MOD) SARS-CoV-2 RNA (JULIANA) NEGATIVE (NEGATIVE) Result Diagrams: 10/22/20 13:11 10/22/20 13:11 Sepsis Event Note - Evaluation Sepsis Screening Result: No Definite Risk - Focused Exam Vital Signs: Vital Signs Temp Pulse Resp BP Pulse Ox 10/22/20 13:55 63 14 112/49 L 96 10/22/20 12:40 96.9 F 70 18 132/67 95 - Problem List (1) Dizziness SNOMED Code(s): 835101320, 162132021 ICD Code: R42 - DIZZINESS AND GIDDINESS Status: Acute Current Visit: Yes (2) Acute ischemic stroke SNOMED Code(s): 641238713, 330511830 ICD Code: I63.9 - CEREBRAL INFARCTION, UNSPECIFIED Status: Acute Current Visit: No (3) CVA (cerebral vascular accident) SNOMED Code(s): 348269640 ICD Code: I63.9 - CEREBRAL INFARCTION, UNSPECIFIED Status: Acute Current Visit: No Qualifiers: CVA mechanism: unspecified Qualified Code(s): I63.9 - Cerebral infarction, unspecified (4) Lightheadedness SNOMED Code(s): 600512559 ICD Code: R42 - DIZZINESS AND GIDDINESS Status: Acute Current Visit: Yes (5) Dyslipidemia SNOMED Code(s): 998054145 ICD Code: E78.5 - HYPERLIPIDEMIA, UNSPECIFIED Status: Chronic Current Visit: No (6) HTN (hypertension) SNOMED Code(s): 02948683 ICD Code: I10 - ESSENTIAL (PRIMARY) HYPERTENSION Status: Chronic Current Visit: No (7) History of CVA (cerebrovascular accident) SNOMED Code(s): 525722047 ICD Code: Z86.73 - PRSNL HX OF TIA (TIA), AND CEREB INFRC W/O RESID DEFICITS Status: Chronic Current Visit: No Problem List Initiated/Reviewed/Updated: Yes Orders Last 24hrs: Active Orders 24 hr Category Date Time Status Admission Status [Patient Status] [ADT] Stat ADT 10/22/20 17:36 Active Cardiac Monitoring [RC] . DIRECTED Care 10/22/20 12:46 Active EKG Documentation Completion [RC] STAT Care 10/22/20 12:46 Active NIH Stroke Scale [RC] ASDIRECTED Care 10/22/20 12:46 Active Stroke Education, General [RC] Click to Edit Care 10/22/20 12:46 Active Echo 2D wo Cont [US] Routine Exams 10/22/20 18:06 Ordered GLYCOSYLATED HEMOGLOBIN,HGBA1C [CHEM] Routine Lab 10/22/20 18:07 Ordered LIPID PANEL [CHEM] Routine Lab 10/22/20 18:07 Ordered MAGNESIUM [CHEM] Routine Lab 10/22/20 18:07 Ordered Sodium Chloride 0.9% [Normal Saline] Med 10/22/20 12:46 Active 10 ml IV ASDIRECTED PRN Sodium Chloride 0.9% [Saline Flush] Med 10/22/20 12:46 Active 10 ml FLUSH ASDIRECTED PRN Sodium Chloride 0.9% [Saline Flush] Med 10/22/20 12:46 Active 2.5 ml FLUSH ASDIRECTED PRN Peripheral IV Insertion Adult [OM.PC] Stat Oth 10/22/20 12:46 Ordered Medication Orders Sodium Chloride (Sodium Chloride 0.9% 10 Ml Syringe) 10 ml FLUSH ASDIRECTED PRN PRN Reason: Keep Vein Open Last Admin: 10/22/20 13:21 Dose: 10 ml Documented by: DAVID Sodium Chloride (Sodium Chloride 0.9% 2.5 Ml Syringe) 2.5 ml FLUSH ASDIRECTED PRN PRN Reason: Keep Vein Open Last Admin: 10/22/20 13:20 Dose: 2.5 ml Documented by: DAVID Sodium Chloride (Sodium Chloride 0.9% 10 Ml Sdv) 10 ml IV ASDIRECTED PRN PRN Reason: IV Use Last Admin: 10/22/20 13:22 Dose: 10 ml Documented by: DAVID Assessment/Plan Comment:: Dizzinesslikely secondary to dehydration (BUN elevated at 34, creat 1.1), and/or antihypertensive medication. MRI brain with and without contrast ordered, started on 125 mL/h LR, orthostatic vitals, troponin negative x2, UA/UC ordered, encourage p.o. liquids, electrolytes within normal range, PT consult, holding antihypertensive medications this evening (atenolol 25 mg, lisinopril 10 mg.) Stroke work-up-CTA head and neck negative for any large vessel occlusion. CT head negative. Echocardiogram ordered, lipid panel, HbA1. Kayyquis DVT prophylaxis <Marie Rod - Last Filed: 10/22/20 23:50> H&P History of Present Illness - General Admit Problem/Dx: Admission Diagnosis/Problem Admission Diagnosis/Problem Dizziness - History of Present Illness Initial Comments - Free Text/Narative: I performed a history and physical exam of the patient and discussed management with resident. I have reviewed the residents note and agree with documented findings and plan unless otherwise specified in my note.' Exam - Vital Signs Vital Signs: Last Vital Signs Temp 36.1 C 10/22/20 12:40 Pulse 72 10/22/20 18:41 Resp 18 10/22/20 18:41 BP 138/72 10/22/20 18:41 Pulse Ox 96 10/22/20 19:00 Orthostatic Blood Pressure [ 134/68 Supine] Orthostatic Blood Pressure [ 139/82 Standing] Orthostatic Blood Pressure [ 139/82 Sitting] - Patient Data Lab Results Last 24 hrs: Laboratory Results - last 24 hr 10/22/20 10/22/20 10/22/20 Range/Units 13:11 13:11 13:11 WBC 9.31 (4.0-11.0) K/uL RBC 3.82 L (4.50-5.90) M/uL Hgb 12.9 L (13.0-17.0) g/dL Hct 37.4 L (38.0-50.0) % MCV 97.9 (80.0-98.0) fL MCH 33.8 H (27.0-32.0) pg MCHC 34.5 (31.0-37.0) g/dL RDW Std Deviation 49.9 (28.0-62.0) fl RDW Coeff of Cat 14 (11.0-15.0) % Plt Count 182 (150-400) K/uL MPV 11.50 (7.40-12.00) fL Neut % (Auto) 84.7 H (48.0-80.0) % Lymph % (Auto) 8.5 L (16.0-40.0) % [place] % (Auto) 5.3 (0.0-15.0) % Eos % (Auto) 1.3 (0.0-7.0) % Baso % (Auto) 0.2 (0.0-1.5) % Neut # (Auto) 7.9 H (1.4-5.7) K/uL Lymph # (Auto) 0.8 (0.6-2.4) K/uL [place] # (Auto) 0.5 (0.0-0.8) K/uL Eos # (Auto) 0.1 (0.0-0.7) K/uL Baso # (Auto) 0.0 (0.0-0.1) K/uL Nucleated RBC % 0.0 /100WBC Nucleated RBCs # 0 K/uL INR 1.05 APTT 23.6 (18.6-31.3) SEC Sodium 144 (136-148) mmol/L Potassium 3.9 (3.5-5.1) mmol/L Chloride 107 (98-107) mmol/L Carbon Dioxide 28.0 (21.0-32.0) mmol/L BUN 34 H (7.0-18.0) mg/dL Creatinine 1.1 (0.8-1.3) mg/dL Est Cr Clr Drug Dosing 49.83 mL/min Estimated GFR (MDRD) > 60.0 ml/min Glucose 106 (74-106) mg/dL Hemoglobin A1c (4.5 - 6.2) % Calcium 9.2 (8.5-10.1) mg/dL Magnesium (1.8-2.4) mg/dL Total Bilirubin 0.4 (0.2-1.0) mg/dL AST 13 L (15-37) IU/L ALT 24 (14-63) IU/L Alkaline Phosphatase 64 (46-116) U/L Troponin I < 0.050 (0.000-0.056) ng/mL Total Protein 7.4 (6.4-8.2) g/dL Albumin 4.2 (3.4-5.0) g/dL Globulin 3.2 (2.6-4.0) g/dL Albumin/Globulin Ratio 1.3 (0.9-1.6) Triglycerides (0-200) mg/dL Cholesterol (50-200) mg/dL LDL Cholesterol, Calc (60-180) mg/dL VLDL Cholesterol (5-55) mg/dL HDL Cholesterol (40-60) mg/dL Cholesterol/HDL Ratio (3.3-6.0) TSH 3rd Generation 0.96 (0.36-3.74) uIU/mL Urine Color Urine Appearance Urine pH (5.0-8.0) Ur Specific [place] (1.001-1.035) Urine Protein (NEGATIVE) mg/dL Urine Glucose (UA) (NEGATIVE) mg/dL Urine Ketones (NEGATIVE) mg/dL Urine Occult Blood (NEGATIVE) Urine Nitrite (NEGATIVE) Urine Bilirubin (NEGATIVE) Urine Urobilinogen (<2.0) EU/dL Ur Leukocyte Esterase (NEGATIVE) U Hyaline Cast (Auto) (0-2/LPF) Urine RBC (0-2/HPF) Urine WBC (0-5/HPF) Ur Squamous Epith Cells Urine Mucus (NONE-MOD) SARS-CoV-2 RNA (JULIANA) (NEGATIVE) 10/22/20 10/22/20 10/22/20 Range/Units 13:11 13:27 14:11 WBC (4.0-11.0) K/uL RBC (4.50-5.90) M/uL Hgb (13.0-17.0) g/dL Hct (38.0-50.0) % MCV (80.0-98.0) fL MCH (27.0-32.0) pg MCHC (31.0-37.0) g/dL RDW Std Deviation (28.0-62.0) fl RDW Coeff of Cat (11.0-15.0) % Plt Count (150-400) K/uL MPV (7.40-12.00) fL Neut % (Auto) (48.0-80.0) % Lymph % (Auto) (16.0-40.0) % [place] % (Auto) (0.0-15.0) % Eos % (Auto) (0.0-7.0) % Baso % (Auto) (0.0-1.5) % Neut # (Auto) (1.4-5.7) K/uL Lymph # (Auto) (0.6-2.4) K/uL [place] # (Auto) (0.0-0.8) K/uL Eos # (Auto) (0.0-0.7) K/uL Baso # (Auto) (0.0-0.1) K/uL Nucleated RBC % /100WBC Nucleated RBCs # K/uL INR APTT (18.6-31.3) SEC Sodium (136-148) mmol/L Potassium (3.5-5.1) mmol/L Chloride (98-107) mmol/L Carbon Dioxide (21.0-32.0) mmol/L BUN (7.0-18.0) mg/dL Creatinine (0.8-1.3) mg/dL Est Cr Clr Drug Dosing mL/min Estimated GFR (MDRD) ml/min Glucose (74-106) mg/dL Hemoglobin A1c 5.3 (4.5 - 6.2) % Calcium (8.5-10.1) mg/dL Magnesium 2.4 (1.8-2.4) mg/dL Total Bilirubin (0.2-1.0) mg/dL AST (15-37) IU/L ALT (14-63) IU/L Alkaline Phosphatase (46-116) U/L Troponin I (0.000-0.056) ng/mL Total Protein (6.4-8.2) g/dL Albumin (3.4-5.0) g/dL Globulin (2.6-4.0) g/dL Albumin/Globulin Ratio (0.9-1.6) Triglycerides 51 (0-200) mg/dL Cholesterol 144 (50-200) mg/dL LDL Cholesterol, Calc 72 (60-180) mg/dL VLDL Cholesterol 10 (5-55) mg/dL HDL Cholesterol 62 H (40-60) mg/dL Cholesterol/HDL Ratio 2.3 L (3.3-6.0) TSH 3rd Generation (0.36-3.74) uIU/mL Urine Color YELLOW Urine Appearance CLEAR Urine pH 5.0 (5.0-8.0) Ur Specific [place] >= 1.030 (1.001-1.035) Urine Protein TRACE H (NEGATIVE) mg/dL Urine Glucose (UA) NEGATIVE (NEGATIVE) mg/dL Urine Ketones NEGATIVE (NEGATIVE) mg/dL Urine Occult Blood TRACE-INTACT H (NEGATIVE) Urine Nitrite NEGATIVE (NEGATIVE) Urine Bilirubin NEGATIVE (NEGATIVE) Urine Urobilinogen 0.2 (<2.0) EU/dL Ur Leukocyte Esterase NEGATIVE (NEGATIVE) U Hyaline Cast (Auto) 10-15 (0-2/LPF) Urine RBC 0-1 (0-2/HPF) Urine WBC 0-1 (0-5/HPF) Ur Squamous Epith Cells MODERATE Urine Mucus HEAVY (NONE-MOD) SARS-CoV-2 RNA (JULIANA) (NEGATIVE) 10/22/20 10/22/20 Range/Units 14:40 16:03 WBC (4.0-11.0) K/uL RBC (4.50-5.90) M/uL Hgb (13.0-17.0) g/dL Hct (38.0-50.0) % MCV (80.0-98.0) fL MCH (27.0-32.0) pg MCHC (31.0-37.0) g/dL RDW Std Deviation (28.0-62.0) fl RDW Coeff of Cat (11.0-15.0) % Plt Count (150-400) K/uL MPV (7.40-12.00) fL Neut % (Auto) (48.0-80.0) % Lymph % (Auto) (16.0-40.0) % [place] % (Auto) (0.0-15.0) % Eos % (Auto) (0.0-7.0) % Baso % (Auto) (0.0-1.5) % Neut # (Auto) (1.4-5.7) K/uL Lymph # (Auto) (0.6-2.4) K/uL [place] # (Auto) (0.0-0.8) K/uL Eos # (Auto) (0.0-0.7) K/uL Baso # (Auto) (0.0-0.1) K/uL Nucleated RBC % /100WBC Nucleated RBCs # K/uL INR APTT (18.6-31.3) SEC Sodium (136-148) mmol/L Potassium (3.5-5.1) mmol/L Chloride (98-107) mmol/L Carbon Dioxide (21.0-32.0) mmol/L BUN (7.0-18.0) mg/dL Creatinine (0.8-1.3) mg/dL Est Cr Clr Drug Dosing mL/min Estimated GFR (MDRD) ml/min Glucose (74-106) mg/dL Hemoglobin A1c (4.5 - 6.2) % Calcium (8.5-10.1) mg/dL Magnesium (1.8-2.4) mg/dL Total Bilirubin (0.2-1.0) mg/dL AST (15-37) IU/L ALT (14-63) IU/L Alkaline Phosphatase (46-116) U/L Troponin I < 0.050 (0.000-0.056) ng/mL Total Protein (6.4-8.2) g/dL Albumin (3.4-5.0) g/dL Globulin (2.6-4.0) g/dL Albumin/Globulin Ratio (0.9-1.6) Triglycerides (0-200) mg/dL Cholesterol (50-200) mg/dL LDL Cholesterol, Calc (60-180) mg/dL VLDL Cholesterol (5-55) mg/dL HDL Cholesterol (40-60) mg/dL Cholesterol/HDL Ratio (3.3-6.0) TSH 3rd Generation (0.36-3.74) uIU/mL Urine Color Urine Appearance Urine pH (5.0-8.0) Ur Specific [place] (1.001-1.035) Urine Protein (NEGATIVE) mg/dL Urine Glucose (UA) (NEGATIVE) mg/dL Urine Ketones (NEGATIVE) mg/dL Urine Occult Blood (NEGATIVE) Urine Nitrite (NEGATIVE) Urine Bilirubin (NEGATIVE) Urine Urobilinogen (<2.0) EU/dL Ur Leukocyte Esterase (NEGATIVE) U Hyaline Cast (Auto) (0-2/LPF) Urine RBC (0-2/HPF) Urine WBC (0-5/HPF) Ur Squamous Epith Cells Urine Mucus (NONE-MOD) SARS-CoV-2 RNA (JULIANA) NEGATIVE (NEGATIVE) Result Diagrams: 10/22/20 13:11 10/22/20 13:11 Sepsis Event Note - Focused Exam Vital Signs: Vital Signs Temp Pulse Resp BP Pulse Ox Pulse Ox 10/22/20 19:00 96 10/22/20 18:41 72 18 138/72 98 10/22/20 13:55 63 14 112/49 L 96 10/22/20 12:40 36.1 C 70 18 132/67 95 Orders Last 24hrs: Active Orders 24 hr Category Date Time Status Admission Status [Patient Status] [ADT] Stat ADT 10/22/20 17:36 Active Cardiac Monitoring [RC] Q8H Care 10/22/20 12:46 Active EKG Documentation Completion [RC] STAT Care 10/22/20 12:46 Active NIH Stroke Scale [RC] ASDIRECTED Care 10/22/20 12:46 Active Orthostatic Vital Signs [RC] ASDIRECTED Care 10/22/20 18:17 Active Stroke Education, General [RC] Click to Edit Care 10/22/20 12:46 Active Telemetry Monitoring [Cardiac Monitoring] [RC] Q8H Care 10/22/20 18:49 Active Consult to Physical Therapy [PT Evaluation and Cons 10/22/20 19:06 Active Treatment] [CONS] Routine Heart Healthy Diet [DIET] Diet 10/23/20 Breakfast Active Brain w wo Cont [MR] Routine Exams 10/22/20 19:37 Ordered Echo 2D wo Cont [US] Routine Exams 10/22/20 18:06 Stop Req Echo Comp wo Cont [US] Routine Exams 10/22/20 19:53 Ordered CBC WITH AUTO DIFF [HEME] AM Lab 10/23/20 05:11 Ordered CMP [COMPREHENSIVE METABOLIC PN,CMP] [CHEM] AM Lab 10/23/20 05:11 Ordered UA RFX ALL AND CULT IF INDIC [URIN] Routine Lab 10/22/20 18:59 Ordered Acetaminophen [TylenoL] Med 10/22/20 21:53 Active 650 mg PO Q6H PRN Apixaban [Eliquis] Med 10/22/20 21:00 Active 2.5 mg PO BID Aspirin [Halfprin] Med 10/23/20 09:00 Active 81 mg PO DAILY Lactated Ringers [Ringers, Lactated] 1,000 ml Med 10/22/20 19:15 Active IV ASDIRECTED Rosuvastatin [Crestor] Med 10/23/20 09:00 Active 40 mg PO DAILY Sodium Chloride 0.9% [Normal Saline] Med 10/22/20 12:46 Active 10 ml IV ASDIRECTED PRN Sodium Chloride 0.9% [Saline Flush] Med 10/22/20 12:46 Active 10 ml FLUSH ASDIRECTED PRN Sodium Chloride 0.9% [Saline Flush] Med 10/22/20 12:46 Active 2.5 ml FLUSH ASDIRECTED PRN Peripheral IV Insertion Adult [OM.PC] Stat Oth 10/22/20 12:46 Ordered Code Status [Resuscitation Status] Routine Resus Stat 10/22/20 19:41 Ordered Medication Orders Acetaminophen (Acetaminophen 325 Mg Tab) 650 mg PO Q6H PRN PRN Reason: Pain/Fever Last Admin: 10/22/20 22:42 Dose: 650 mg Documented by: GIA Apixaban (Apixaban 2.5 Mg Tab) 2.5 mg PO BID [facility] Last Admin: 10/22/20 21:16 Dose: 2.5 mg Documented by: GIA Aspirin (Aspirin 81 Mg Tab.Ec) 81 mg PO DAILY [facility] Lactated Ringer's (Ringers, Lactated) 1,000 mls @ 125 mls/hr IV ASDIRECTED NASREEN Last Admin: 10/22/20 20:05 Dose: 125 mls/hr Documented by: GIA Rosuvastatin Calcium (Rosuvastatin 10 Mg Tab) 40 mg PO DAILY [facility] Sodium Chloride (Sodium Chloride 0.9% 10 Ml Syringe) 10 ml FLUSH ASDIRECTED PRN PRN Reason: Keep Vein Open Last Admin: 10/22/20 13:21 Dose: 10 ml Documented by: DAVID Sodium Chloride (Sodium Chloride 0.9% 2.5 Ml Syringe) 2.5 ml FLUSH ASDIRECTED PRN PRN Reason: Keep Vein Open Last Admin: 10/22/20 13:20 Dose: 2.5 ml Documented by: KLEIJOC Sodium Chloride (Sodium Chloride 0.9% 10 Ml Sdv) 10 ml IV ASDIRECTED PRN PRN Reason: IV Use Last Admin: 10/22/20 13:22 Dose: 10 ml Documented by: DAVID
[2020-10-22 18:30] LABS: HEMOGLOBIN A1C 5.3 %
[2020-10-22] MEDS ORDERED: Sodium Chloride 0.9% 1,000 ML IV ONE (18:35)
[2020-10-22] MEDS ORDERED: Lactated Ringers 1,000 ML IV ONE (18:39)
[2020-10-22] MEDS: Lactated Ringers 1,000 ML IV SCH (20:05)
[2020-10-22] MEDS: Apixaban 2.5 MG Tab PO SCH (21:16)
[2020-10-22] MEDS ORDERED: Acetaminophen 325 MG Tab PO PRN (21:53)
[2020-10-23] MEDS: Lactated Ringers 1,000 ML IV SCH ×2 (03:55→14:56)
[2020-10-23 06:07] LABS: BLOOD UREA NITROGEN,BUN 27 mg/dL (7.0-18.0); CARBON DIOXIDE,CO2 26.9 mmol/L (21.0-32.0); CHLORIDE,CL 108 mmol/L (98-107); GLUCOSE RANDOM 92 mg/dL (74-106); POTASSIUM,K 4.4 mmol/L (3.5-5.1); SODIUM,NA 141 mmol/L (136-148)
[2020-10-23] MEDS ORDERED: Aspirin 81 MG Tab.EC PO SCH (09:00)
[2020-10-23] MEDS ORDERED: Rosuvastatin 10 MG Tab PO SCH (09:00)
[2020-10-23] MEDS: Apixaban 2.5 MG Tab PO SCH (09:44)
[2020-10-23] MEDS ORDERED: Gadobenate Dimeglumine 529 MG/ML 20 ML SDV IVPUSH STA (11:39)
--- NOTE | 2020-10-23 12:46 | MR ---
INDICATION: Dizziness. TECHNIQUE: Sagittal T1 axial FLAIR axial and coronal T2 susceptibility weighted diffusion-weighted and gadolinium enhanced volumetric T1 weighted sequences. COMPARISON: CT scans the brain 10/22/2020 and 06/07/2020. FINDINGS: Ventricles and subarachnoid spaces are prominent due to volume loss. There is focal volume loss/encephalomalacia in the posterior left frontal and parietal lobes consistent with areas of chronic infarction in the distal left anterior cerebral artery distribution and left middle cerebral artery distribution. No areas of diffusion restriction to suggest acute infarction. No evidence of recent intracranial hemorrhage. No mass effect. Multifocal and confluent FLAIR and T2 hyperintensity throughout the bilateral cerebral white matter and left yanci jonathan consistent with chronic small vessel ischemic changes. There is some FLAIR/T2 hyperintensity and marginal enhanced near the right frontal horn and associated nonenhancing signal change in the adjacent right frontal lobe cortex and subcortical white matter. This is less specific but may represent subacute to chronic infarction. No mass effect no midline shift. No subdural fluid collections. Small chronic infarction in the posterior right cerebellar hemisphere. Impression : 1) Areas of chronic infarction and focal volume loss are again noted and most prominent in the left posterior frontal and parietal lobes. 2) Associated chronic small vessel ischemic changes and additional small mature infarcts as described. 3) No evidence of acute infarction, intracranial hemorrhage or mass lesion. Dictated by Pedro Samson MD @ Oct 23 2020 12:35PM Signed by Dr. Pedro Samson @ Oct 23 2020 12:45PM
--- NOTE | 2020-10-23 15:44 | PCM.DCSUM1 ---
<Alec Watts - Last Filed: 10/23/20 18:34> Discharge Summary - Hospital Course Free Text/Narrative:: 80-year-old male admitted for stroke rule out and dizziness. PMH significant for several CVA, hypertension, hyperlipidemia, CAD, carotid stenosis s/p carotid endarterectomy, on Eliquis. Patient states that he has been feeling dizzy for the past 6 months but states recently in the last few days his dizziness has increased significantly. Patient states increasing dizziness this morning and prior to arrival in the ED required the help of 2 individuals support when trying to leave work. Patient also states that he does not drink enough water. When questioned patient states he had 1 Ensure today with no other liquids and states that he has hardly been drinking water in the past few days. Patient states he drinks soda occasionally. Patient also states that he feels his anti-hypertensive medications might be adding to his dizziness symptoms. Patient son also in the room with patient, patient son also states that his father has been significantly dizzy and lightheaded for a few days. Patient denies fever, chills, nausea, vomiting, abdominal pain, chest pain, shortness of breath. Patient denies any recent history of trauma. Patient states lightheadedness at times when rising from seated position BUN elevated 34, creatinine 1.1, troponin negative x2. Patient currently taking atenolol and lisinopril. Head/neck CTA findings noncalcified atherosclerotic plaque involving the right carotid bifurcation stenting to the carotid bulb, less than 50% luminal stenosis of the proximal ICA. Mild sclerosis of the left carotid bifurcation without stenosis of the proximal ICA. Brain MRI findings- areas of chronic infarction and volume loss noted at the left posterior frontal and parietal lobes, chronic small vessel ischemic changes and additional small mature infarcts, no evidence of acute infarction, intracranial hemorrhage, or mass lesion. Echocardiogram report pending CT head negative, chest x-ray negative. Patient started on 125 mL/h LR, orthostatic vitals monitored, anti-hypertensive medications held, PT consult with recommendation for patient to use front wheel walker. Patient was able to walk up and down the hallway prior to discharge with physical therapy and patient states very mild dizziness which did not interfere with his ability to ambulate or walk. Patient did not lose balance or strength at any time. Patient discharged home and advised to continue previously prescribed medications with some alterations to include atenolol half tablet daily to equal dose of 12.5 mg, lisinopril 5 mg daily, meclizine as needed for dizziness. There was a question whether patient should be started on Plavix, patient currently on half aspirin and Eliquis. I spoke with Dr Caraballo, cardiovascular surgery at [facility] who has seen the patient previously. His recommendation was that since the patient is not having an active stroke, patient does not need Plavix at this time due to age and risk of significant bleeding with his current regimen. Patient to follow-up with cardiovascular surgery, primary care physician and monitor blood pressure at home upon discharge. Patient also encouraged to consume water regularly, per questioning on admission patient stated that he drinks very little to no water during the day - Discharge Data Discharge Date: 10/23/20 Discharge Disposition: Home, Self-Care 01 Condition: Fair - Referral to Home Health Primary Care Physician: Rui Esteban MD - Discharge Diagnosis/Problem(s) (1) Dizziness SNOMED Code(s): 575748364, [id number] ICD Code: R42 - DIZZINESS AND GIDDINESS Status: Acute (2) Acute ischemic stroke SNOMED Code(s): 068156323, 736847281 ICD Code: I63.9 - CEREBRAL INFARCTION, UNSPECIFIED Status: Acute (3) CVA (cerebral vascular accident) SNOMED Code(s): 099968435 ICD Code: I63.9 - CEREBRAL INFARCTION, UNSPECIFIED Status: Acute Qualifiers: CVA mechanism: unspecified Qualified Code(s): I63.9 - Cerebral infarction, unspecified (4) Lightheadedness SNOMED Code(s): 678857316 ICD Code: R42 - DIZZINESS AND GIDDINESS Status: Acute (5) Dyslipidemia SNOMED Code(s): 831370838 ICD Code: E78.5 - HYPERLIPIDEMIA, UNSPECIFIED Status: Chronic (6) HTN (hypertension) SNOMED Code(s): 57040276 ICD Code: I10 - ESSENTIAL (PRIMARY) HYPERTENSION Status: Chronic (7) History of CVA (cerebrovascular accident) SNOMED Code(s): 285180841 ICD Code: Z86.73 - PRSNL HX OF TIA (TIA), AND CEREB INFRC W/O RESID DEFICITS Status: Chronic - Patient Summary/Data Consults: Consultations 10/22/20 19:06 Consult to Physical Therapy [PT Evaluation and Treatment] [CONS] Routine - Discharge Plan *PRESCRIPTION DRUG MONITORING PROGRAM REVIEWED*: Not Applicable *COPY OF PRESCRIPTION DRUG MONITORING REPORT IN PATIENT NEAL: Not Applicable Prescriptions/Med Rec: Meclizine [Antivert] 12.5 mg PO DAILY PRN #7 tab PRN Reason: Dizziness lisinopriL [Lisinopril] 5 mg PO DAILY #21 tablet atenoloL [Tenormin] 12 mg PO DAILY #14 tablet Home Medications: Home Meds atenoloL [Atenolol] 12 mg PO DAILY 08/01/14 [History] Aspirin [Halfprin] 1 tab PO DAILY 12/20/14 [History] Rosuvastatin Calcium [Crestor] 40 mg PO DAILY 01/05/18 [History] Apixaban [Eliquis] 2.5 mg PO BID 02/29/20 [History] Meclizine [Antivert] 12.5 mg PO DAILY PRN #7 tab 10/23/20 [Rx] atenoloL [Tenormin] 12 mg PO DAILY #14 tablet 10/23/20 [Rx] lisinopriL [Lisinopril] 5 mg PO DAILY #21 tablet 10/23/20 [Rx] Patient Handouts: Meclizine tablets or capsules, Lisinopril tablets, Atenolol Tablets, Dizziness Forms: ED Department Discharge Referrals: Alec Watts MD [Resident] - 10/30/20 3:00 pm - Discharge Summary/Plan Comment DC Time >30 min.: Yes - General Info Date of Service: 10/23/20 Subjective Update: Patient states he feels well, feels less dizzy than yesterday on admission. Patient denies chest pain, shortness of breath, lightheadedness, blurry vision, abdominal pain, nausea. Patient was able to walk up and down the hallway with physical therapy and stated that he had very mild dizziness that did not interfere with his ability to walk. He states he did not lose balance at any time. Patient would like to go home today - Review of Systems General: Denies: Fever, Weakness, Chills Pulmonary: Denies: Shortness of Breath Cardiovascular: Denies: Chest Pain Gastrointestinal: Denies: Abdominal Pain, Constipation Neurological: Reports: Dizziness (very mild, not interfering with walking). Denies: Confusion, Headache, Seizure, Syncope, Trouble Speaking, Difficulty Walking, Weakness, Gait Disturbance Psychiatric: Denies: Confusion - Patient Data Vitals - Most Recent: Last Vital Signs Temp 98.3 F 10/23/20 12:32 Pulse 59 L 10/23/20 12:32 Resp 16 10/23/20 12:32 BP 145/89 H 10/23/20 12:32 Pulse Ox 98 10/23/20 12:32 Orthostatic Blood Pressure [ 134/68 Supine] Orthostatic Blood Pressure [ 139/82 Standing] Orthostatic Blood Pressure [ 139/82 Sitting] Weight - Most Recent: 66.1 kg I&O - Last 24 hours: Intake & Output 10/23/20 10/23/20 10/23/20 06:59 14:59 22:59 Intake Total 1590 Balance 1590 Lab Results - Last 24 hrs: Laboratory Results - last 24 hr 10/22/20 10/22/20 10/22/20 Range/Units 13:11 13:27 14:11 WBC (4.0-11.0) K/uL RBC (4.50-5.90) M/uL Hgb (13.0-17.0) g/dL Hct (38.0-50.0) % MCV (80.0-98.0) fL MCH (27.0-32.0) pg MCHC (31.0-37.0) g/dL RDW Std Deviation (28.0-62.0) fl RDW Coeff of Cat (11.0-15.0) % Plt Count (150-400) K/uL MPV (7.40-12.00) fL Neut % (Auto) (48.0-80.0) % Lymph % (Auto) (16.0-40.0) % [place] % (Auto) (0.0-15.0) % Eos % (Auto) (0.0-7.0) % Baso % (Auto) (0.0-1.5) % Neut # (Auto) (1.4-5.7) K/uL Lymph # (Auto) (0.6-2.4) K/uL Johnston # (Auto) (0.0-0.8) K/uL Eos # (Auto) (0.0-0.7) K/uL Baso # (Auto) (0.0-0.1) K/uL Nucleated RBC % /100WBC Nucleated RBCs # K/uL Sodium (136-148) mmol/L Potassium (3.5-5.1) mmol/L Chloride (98-107) mmol/L Carbon Dioxide (21.0-32.0) mmol/L BUN (7.0-18.0) mg/dL Creatinine (0.8-1.3) mg/dL Est Cr Clr Drug Dosing mL/min Estimated GFR (MDRD) ml/min Glucose (74-106) mg/dL Hemoglobin A1c 5.3 (4.5 - 6.2) % Calcium (8.5-10.1) mg/dL Magnesium 2.4 (1.8-2.4) mg/dL Total Bilirubin (0.2-1.0) mg/dL AST (15-37) IU/L ALT (14-63) IU/L Alkaline Phosphatase (46-116) U/L Troponin I (0.000-0.056) ng/mL Total Protein (6.4-8.2) g/dL Albumin (3.4-5.0) g/dL Globulin (2.6-4.0) g/dL Albumin/Globulin Ratio (0.9-1.6) Triglycerides 51 (0-200) mg/dL Cholesterol 144 (50-200) mg/dL LDL Cholesterol, Calc 72 (60-180) mg/dL VLDL Cholesterol 10 (5-55) mg/dL HDL Cholesterol 62 H (40-60) mg/dL Cholesterol/HDL Ratio 2.3 L (3.3-6.0) Urine Color YELLOW Urine Appearance CLOUDY Urine pH 5.5 (5.0-8.0) Ur Specific [place] >= 1.030 (1.001-1.035) Urine Protein NEGATIVE (NEGATIVE) mg/dL Urine Glucose (UA) NEGATIVE (NEGATIVE) mg/dL Urine Ketones NEGATIVE (NEGATIVE) mg/dL Urine Occult Blood NEGATIVE (NEGATIVE) Urine Nitrite NEGATIVE (NEGATIVE) Urine Bilirubin NEGATIVE (NEGATIVE) Urine Urobilinogen 0.2 (<2.0) EU/dL Ur Leukocyte Esterase NEGATIVE (NEGATIVE) 10/22/20 10/23/20 10/23/20 Range/Units 16:03 05:10 05:10 WBC 4.71 (4.0-11.0) K/uL RBC 3.21 L (4.50-5.90) M/uL Hgb 10.4 L (13.0-17.0) g/dL Hct 31.4 L (38.0-50.0) % MCV 97.8 (80.0-98.0) fL MCH 32.4 H (27.0-32.0) pg MCHC 33.1 (31.0-37.0) g/dL RDW Std Deviation 50.1 (28.0-62.0) fl RDW Coeff of Cat 14 (11.0-15.0) % Plt Count 138 L (150-400) K/uL MPV 11.80 (7.40-12.00) fL Neut % (Auto) 51.7 (48.0-80.0) % Lymph % (Auto) 35.0 (16.0-40.0) % Johnston % (Auto) 8.7 (0.0-15.0) % Eos % (Auto) 4.0 (0.0-7.0) % Baso % (Auto) 0.6 (0.0-1.5) % Neut # (Auto) 2.4 (1.4-5.7) K/uL Lymph # (Auto) 1.7 (0.6-2.4) K/uL Johnston # (Auto) 0.4 (0.0-0.8) K/uL Eos # (Auto) 0.2 (0.0-0.7) K/uL Baso # (Auto) 0.0 (0.0-0.1) K/uL Nucleated RBC % 0.0 /100WBC Nucleated RBCs # 0 K/uL Sodium 141 (136-148) mmol/L Potassium 4.4 (3.5-5.1) mmol/L Chloride 108 H (98-107) mmol/L Carbon Dioxide 26.9 (21.0-32.0) mmol/L BUN 27 H (7.0-18.0) mg/dL Creatinine 1.0 (0.8-1.3) mg/dL Est Cr Clr Drug Dosing 55.08 mL/min Estimated GFR (MDRD) > 60.0 ml/min Glucose 92 (74-106) mg/dL Hemoglobin A1c (4.5 - 6.2) % Calcium 8.2 L (8.5-10.1) mg/dL Magnesium (1.8-2.4) mg/dL Total Bilirubin 0.4 (0.2-1.0) mg/dL AST 13 L (15-37) IU/L ALT 10 L (14-63) IU/L Alkaline Phosphatase 49 (46-116) U/L Troponin I < 0.050 (0.000-0.056) ng/mL Total Protein 5.8 L (6.4-8.2) g/dL Albumin 3.2 L (3.4-5.0) g/dL Globulin 2.6 (2.6-4.0) g/dL Albumin/Globulin Ratio 1.2 (0.9-1.6) Triglycerides (0-200) mg/dL Cholesterol (50-200) mg/dL LDL Cholesterol, Calc (60-180) mg/dL VLDL Cholesterol (5-55) mg/dL HDL Cholesterol (40-60) mg/dL Cholesterol/HDL Ratio (3.3-6.0) Urine Color Urine Appearance Urine pH (5.0-8.0) Ur Specific [place] (1.001-1.035) Urine Protein (NEGATIVE) mg/dL Urine Glucose (UA) (NEGATIVE) mg/dL Urine Ketones (NEGATIVE) mg/dL Urine Occult Blood (NEGATIVE) Urine Nitrite (NEGATIVE) Urine Bilirubin (NEGATIVE) Urine Urobilinogen (<2.0) EU/dL Ur Leukocyte Esterase (NEGATIVE) Med Orders - Current: Current Medications Acetaminophen (Acetaminophen 325 Mg Tab) 650 mg PO Q6H PRN PRN Reason: Pain/Fever Last Admin: 10/22/20 22:42 Dose: 650 mg Documented by: Apixaban (Apixaban 2.5 Mg Tab) 2.5 mg PO BID [facility] Last Admin: 10/23/20 09:44 Dose: 2.5 mg Documented by: Aspirin (Aspirin 81 Mg Tab.Ec) 81 mg PO DAILY [facility] Last Admin: 10/23/20 09:44 Dose: 81 mg Documented by: Atenolol (Atenolol 25 Mg Tab) 12 mg PO DAILY [facility] Lactated Ringer's (Ringers, Lactated) 1,000 mls @ 125 mls/hr IV ASDIRECTED [facility] Last Admin: 10/23/20 14:56 Dose: 125 mls/hr Documented by: Lisinopril (Lisinopril 10 Mg Tab) 10 mg PO DAILY [facility] Rosuvastatin Calcium (Rosuvastatin 10 Mg Tab) 40 mg PO DAILY [facility] Last Admin: 10/23/20 09:44 Dose: 40 mg Documented by: Sodium Chloride (Sodium Chloride 0.9% 10 Ml Syringe) 10 ml FLUSH ASDIRECTED PRN PRN Reason: Keep Vein Open Last Admin: 10/22/20 13:21 Dose: 10 ml Documented by: Sodium Chloride (Sodium Chloride 0.9% 2.5 Ml Syringe) 2.5 ml FLUSH ASDIRECTED PRN PRN Reason: Keep Vein Open Last Admin: 10/22/20 13:20 Dose: 2.5 ml Documented by: Sodium Chloride (Sodium Chloride 0.9% 10 Ml Sdv) 10 ml IV ASDIRECTED PRN PRN Reason: IV Use Last Admin: 10/22/20 13:22 Dose: 10 ml Documented by: Discontinued Medications Acetaminophen (Acetaminophen 325 Mg Tab) 650 mg PO NOW ONE Stop: 10/22/20 14:41 Last Admin: 10/22/20 14:47 Dose: 650 mg Documented by: Gadobenate Dimeglumine (Gadobenate Dimeglumine 529 Mg/Ml 20 Ml Sdv) 20 ml IVPUSH ONETIME STA Stop: 10/23/20 11:40 Last Admin: 10/23/20 11:40 Dose: 12 ml Documented by: Sodium Chloride (Normal Saline) 1,000 mls @ 999 mls/hr IV STAT ONE Stop: 10/22/20 19:35 Last Admin: 10/23/20 00:11 Dose: Not Given Documented by: Lactated Ringer's (Ringers, Lactated) 1,000 mls @ 999 mls/hr IV .BOLUS ONE Stop: 10/22/20 19:39 Last Admin: 10/23/20 00:11 Dose: Not Given Documented by: Iopamidol (Iopamidol 755 Mg/Ml 500 Ml Multipack Bottle) 100 ml IVPUSH ONETIME STA Stop: 10/22/20 16:45 Last Admin: 10/22/20 16:44 Dose: 100 ml Documented by: - Exam General: Reports: Alert, Oriented HEENT: Reports: Pupils Equal Lungs: Reports: Clear to Auscultation, Normal Respiratory Effort Cardiovascular: Reports: Regular Rate, Regular Rhythm GI/Abdominal Exam: Normal Bowel Sounds, Soft, Non-Tender Extremities: No Pedal Edema Neurological: Reports: Normal Gait, Normal Speech, Strength Equal Bilateral, Sensation Intact Psy/Mental Status: Reports: Alert <Marie Rod - Last Filed: 10/24/20 22:57> Discharge Summary - Hospital Course Free Text/Narrative:: I have seen and evaluated the patient and agree with the residents note unless specified in my note - Referral to Home Health Primary Care Physician: Rui Esteban MD - Patient Summary/Data Consults: Consultations 10/22/20 19:06 Consult to Physical Therapy [PT Evaluation and Treatment] [CONS] Routine - Patient Data Vitals - Most Recent: Last Vital Signs Temp 37.2 C 10/23/20 16:00 Pulse 64 10/23/20 16:00 Resp 16 10/23/20 16:00 BP 154/83 H 10/23/20 16:00 Pulse Ox 98 10/23/20 16:00 Orthostatic Blood Pressure [ 134/68 Supine] Orthostatic Blood Pressure [ 139/82 Standing] Orthostatic Blood Pressure [ 139/82 Sitting] Med Orders - Current: Current Medications Discontinued Medications Acetaminophen (Acetaminophen 325 Mg Tab) 650 mg PO NOW ONE Stop: 10/22/20 14:41 Last Admin: 10/22/20 14:47 Dose: 650 mg Documented by: Acetaminophen (Acetaminophen 325 Mg Tab) 650 mg PO Q6H PRN PRN Reason: Pain/Fever Last Admin: 10/22/20 22:42 Dose: 650 mg Documented by: Apixaban (Apixaban 2.5 Mg Tab) 2.5 mg PO BID [facility] Last Admin: 10/23/20 09:44 Dose: 2.5 mg Documented by: Aspirin (Aspirin 81 Mg Tab.Ec) 81 mg PO DAILY [facility] Last Admin: 10/23/20 09:44 Dose: 81 mg Documented by: Atenolol (Atenolol 25 Mg Tab) 12 mg PO DAILY [facility] Gadobenate Dimeglumine (Gadobenate Dimeglumine 529 Mg/Ml 20 Ml Sdv) 20 ml IVPUSH ONETIME STA Stop: 10/23/20 11:40 Last Admin: 10/23/20 11:40 Dose: 12 ml Documented by: Sodium Chloride (Normal Saline) 1,000 mls @ 999 mls/hr IV STAT ONE Stop: 10/22/20 19:35 Last Admin: 10/23/20 00:11 Dose: Not Given Documented by: Lactated Ringer's (Ringers, Lactated) 1,000 mls @ 999 mls/hr IV .BOLUS ONE Stop: 10/22/20 19:39 Last Admin: 10/23/20 00:11 Dose: Not Given Documented by: Lactated Ringer's (Ringers, Lactated) 1,000 mls @ 125 mls/hr IV ASDIRECTED [facility] Last Admin: 10/23/20 14:56 Dose: 125 mls/hr Documented by: Iopamidol (Iopamidol 755 Mg/Ml 500 Ml Multipack Bottle) 100 ml IVPUSH ONETIME STA Stop: 10/22/20 16:45 Last Admin: 10/22/20 16:44 Dose: 100 ml Documented by: Lisinopril (Lisinopril 10 Mg Tab) 10 mg PO DAILY [facility] Rosuvastatin Calcium (Rosuvastatin 10 Mg Tab) 40 mg PO DAILY [facility] Last Admin: 10/23/20 09:44 Dose: 40 mg Documented by: Sodium Chloride (Sodium Chloride 0.9% 10 Ml Syringe) 10 ml FLUSH ASDIRECTED PRN PRN Reason: Keep Vein Open Last Admin: 10/22/20 13:21 Dose: 10 ml Documented by: Sodium Chloride (Sodium Chloride 0.9% 2.5 Ml Syringe) 2.5 ml FLUSH ASDIRECTED PRN PRN Reason: Keep Vein Open Last Admin: 10/22/20 13:20 Dose: 2.5 ml Documented by: Sodium Chloride (Sodium Chloride 0.9% 10 Ml Sdv) 10 ml IV ASDIRECTED PRN PRN Reason: IV Use Last Admin: 10/22/20 13:22 Dose: 10 ml Documented by:
[2020-10-23 16:56] VITALS: BP 154/83; PULSE 64
[2020-10-23] MEDS ORDERED: Lisinopril 10 MG Tab PO SCH (20:00)
[2020-10-24] MEDS ORDERED: Atenolol 25 MG Tab PO SCH (09:00)
--- NOTE | 2020-10-26 11:33 | ECHO ---
The ECHO report has been scanned into [employer] and can be seen in this patient's EMR (Electronic Medical Record) under the REPORTS section. The report has also been scanned into PACS. ALEXI
== END 2020-10-23 18:40 | disposition home or self-care (01) ==
LOC: MW.ED 12:16 → MW.MS 17:36
PROVIDERS: ADMIT Student in an Organized Health Care Education/Training Program; ATTEND Student in an Organized Health Care Education/Training Program
DX: I63.9 Cerebral infarction, unspecified (principal); I10 Essential (primary) hypertension; I25.10 Atherosclerotic heart disease of native coronary artery without angina pectoris; E78.5 Hyperlipidemia, unspecified; Z20.822 Contact with and (suspected) exposure to COVID-19; E78.00 Pure hypercholesterolemia, unspecified; I65.21 Occlusion and stenosis of right carotid artery; Z79.82 Long term (current) use of aspirin; Z79.899 Other long term (current) drug therapy; Z86.73 Personal history of transient ischemic attack (TIA), and cerebral infarction without residual deficits; Z98.890 Other specified postprocedural states
CPT/HCPCS: 36415; 70450; 70496; 70498; 70553; 71045; 80053; 80061; 81001; 81003; 83036; 83735; 84443; 84484; 85025; 85610; 85730; 93005; 93306; 99285; A9270; A9577; G0378; J7120; Q9967; U0002

== ENCOUNTER 2021-01-07 09:58 | Emergency (ER) | payer MEDICARE, BC ==
[2021-01-07] MEDS ORDERED: Sodium Chloride 0.9% 10 ML Syringe FLUSH PRN (10:28)
[2021-01-07] MEDS ORDERED: Sodium Chloride 0.9% 2.5 ML Syringe FLUSH PRN (10:28)
--- NOTE | 2021-01-07 11:09 | CR ---
HISTORY: Dizziness. COMPARISON: 10/22/2020. TECHNIQUE: Chest one-view portable upright. FINDINGS: Implantable court monitor overlying the left chest wall, stable in position. Heart size and pulmonary vasculature are normal. There is no acute airspace disease. There is no pneumothorax. The central airway is normal. The osseous structures are intact. IMPRESSION: No acute airspace disease or significant interval change. Dictated by Zackary Glass MD @ 01/07/2021 11:07:[address] Zackary Glass @ Jan 07 2021 11:07AM
[2021-01-07] MEDS ORDERED: Iopamidol 755 MG/ML 500 ML Multipack Bottle IVPUSH STA (11:16)
[2021-01-07 11:21] LABS: BLOOD UREA NITROGEN,BUN 22 mg/dL (7.0-18.0); CARBON DIOXIDE,CO2 29.2 mmol/L (21.0-32.0); CHLORIDE,CL 104 mmol/L (98-107); GLUCOSE RANDOM 105 mg/dL (74-106); POTASSIUM,K 4.1 mmol/L (3.5-5.1); SODIUM,NA 139 mmol/L (136-148)
--- NOTE | 2021-01-07 12:05 | CT ---
INDICATION: Headache and dizziness. History of stroke. TECHNIQUE: Scanning of the head was performed without IV contrast material. Coronal and sagittal reconstructions were obtained. COMPARISON: Head CT 10/22/2020. FINDINGS: No appreciable changes demonstrated. No intracranial hemorrhage is demonstrated. No positive mass effect is evident. Differentiation between the leslie matter and white matter is preserved. A chronic left parietal infarct is again demonstrated. There is nonspecific decreased attenuation in the cerebral white matter which is most likely due to aging/chronic microvascular ischemic disease. The ventricles and other subarachnoid spaces are within normal limits for the patient`s age. No calvarial abnormality is evident. The visualized paranasal and mastoid sinuses are clear. IMPRESSION: 1. No significant change. No acute abnormality. 2. Chronic left parietal lobe infarct. 3. Nonspecific cerebral white matter disease, most likely due to aging/chronic microvascular ischemic disease. Please note that all CT scans at this facility use dose modulation, iterative reconstruction, and/or weight-based dosing when appropriate to reduce radiation dose to as low as reasonably achievable. Dictated by Mj Berg MD @ 01/07/2021 12:02:[address] Mj Berg @ Jan 07 2021 12:02PM
--- NOTE | 2021-01-07 12:06 | CT ---
DATE: 01/07/2021 CLINICAL HISTORY: Patient with headache and dizziness. Prior stroke. TECHNIQUE: Standard helical CT image acquisition through the head and neck was performed after intravenous contrast bolus enhancement. Multiplanar reconstructed images were performed and interpreted. COMPARISON: CT same day. FINDINGS: The origins of the great vessels from the aortic arch are not visualized. The origin of the right vertebral artery is patent, arising from the descending aorta. The origin of the left vertebral artery is patent. The common carotid arteries are patent There is a mild (<50%) stenosis at the origin of the right internal carotid artery by NASCET criteria, caused by calcified and non-calcified plaque with a <2mm residual lumen. There is a mild (<50%) stenosis at the origin of the left internal carotid artery by NASCET criteria, caused by calcified and non-calcified plaque with a <2mm residual lumen. The rest of the cervical segments of the internal carotid arteries are patent up to their intracranial segments. The intracranial segments of the internal carotid arteries are patent. The left vertebral artery is dominant. The cervical segments of the vertebral arteries are patent. The intracranial segments of the vertebral arteries are patent. The middle cerebral arteries are normal without aneurysm or proximal occlusion identified. The anterior cerebral arteries are normal without aneurysm or proximal occlusion identified. The anterior communicating artery is well visualized and appears normal. The basilar artery is normal without aneurysm or occlusion. The posterior cerebral arteries are normal without aneurysm or proximal occlusion. There is normal opacification of major intracranial venous structures. The visualized lung apices are unremarkable The thyroid gland is unremarkable. The soft tissues of the neck are unremarkable. There are degenerative changes in the cervical spine. IMPRESSION: 1. No proximal intracranial large vessel occlusion or intracranial aneurysm. 2. Mild (<50%) stenosis at the origin of the right internal carotid artery by NASCET criteria, caused by calcified and non-calcified plaque with a <2mm residual lumen. 3. Mild (<50%) stenosis at the origin of the left internal carotid artery by NASCET criteria, caused by calcified and non-calcified plaque with a <2mm residual lumen. Please note that all CT scans at this facility use dose modulation, iterative reconstruction, and/or weight-based dosing when appropriate to reduce radiation dose to as low as reasonably achievable. Dictated by Soraya Anders MD @ 01/07/2021 12:26:[address] Soraya Anders @ Jan 07 2021 12:26PM
--- NOTE | 2021-01-07 12:06 | PCM.EKG ---
#1 Interpretation EKG Date: 01/07/21 Time: 10:17 Rhythm: NSR Rate (Beats/Min): 58 [place]: Normal P-Wave: Present QRS: Normal ST-T: Normal QT: Normal IL/PQ Interval: 174 Comparison: Change From Previous EKG EKG Interpretation Comments: no acute ischemic changes
[2021-01-07] MEDS ORDERED: Ketorolac 30 MG/ML SDV IVPUSH ONE (12:51)
--- NOTE | 2021-01-07 12:52 | EDM.PDOC ---
ED HPI GENERAL MEDICAL PROBLEM - General Chief Complaint: Headache Stated Complaint: HEADACHE DIZZY Time Seen by Provider: 01/07/21 10:00 Source of Information: Reports: Patient History Limitations: Reports: No Limitations - History of Present Illness INITIAL COMMENTS - FREE TEXT/NARRATIVE: I forgot HISTORY AND PHYSICAL: History of present illness: Patient is an 80-year-old male presents to the emergency department secondary to a 4-hour history of intermittent dizziness and headache. Patient states that when he woke this morning he started to develop dizziness and a headache which gradually came on throughout the morning. Patient reports that he has a history of dizziness which comes and goes, his dizziness is similar but he also has associated headache which is new. Patient has previously been evaluated and seen as recently as 10/22/20 for the same complaint and was admitted to the hospital at that time. Patient states that since his hospital discharge he has had intermittent episodes of dizziness has not had a headache until today which is why he came to the emergency room. Patient reports that he took ibuprofen for his headache but that did not relieve his symptoms. Patient states that he did not fall or hit his head. Patient has a history of 4 prior strokes with the last being 2 years ago. Patient notes dizziness is the same as prior evaluation on 10/22/20 but has never had an associated headache so came to the ED for evaluation. Patient denies fever, chills, chest pain, shortness of breath, or cough. Denies neck stiff ness, change in vision, syncope, or near syncope. Denies nausea, vomiting, abdominal pain, diarrhea, constipation, or dysuria. Has not noted any blood in urine or stool. Patient has been eating and drinking appropriately. Review of systems: As per history of present illness and below otherwise all systems reviewed and negative. Past medical history: As per history of present illness and as reviewed below otherwise no ncontributory. Surgical history: As per history of present illness and as reviewed below otherwise noncontributory. Social history: See social history for further information Family history: As per history of present illness and as reviewed below otherwise noncontributory. Physical exam: General: Patient is alert, oriented, and in no acute distress. Patient sitting comfortably on exam table. Patient's vitals are stable and reviewed by me. HEENT: Atraumatic, normocephalic, pupils equal and reactive bilaterally, negative for conjunctival pallor or scleral icterus, mucous membranes moist, TMs normal bilaterally, throat clear, neck supple, nontender, trachea midline. No drooling or trismus noted. No meningeal signs. No hot potato voice noted. Lungs: Clear to auscultation, breath sounds equal bilaterally, chest nontender. Heart: S1S2, regular rate and rhythm without overt murmur Abdomen: Soft, nondistended, nontender. Negative for masses or hepatosplenomegaly. Negative for costovertebral tenderness. Pelvis: Stable nontender. Genitourinary: Deferred. Rectal: Deferred. Skin: Intact, warm, dry. No lesions or rashes noted. Extremities: Atraumatic, negative for cords or calf pain. Neurovascular unremarkable. Neuro: Awake, alert, oriented. Cranial nerves II through XII unremarkable. Cerebellum unremarkable. Motor and sensory unremarkable throughout. Exam nonfocal. Notes: Dr. Hoskins verbally involved in patient care. Patient is a 80-year-old male, with a history of prior stroke s/p carotid endarterectomy, who presents emergency department secondary to a 4-hour history of intermittent dizziness with headache. Upon examination, patient is alert and oriented and sitting comfortably on the exam table. Patient's vitals are stable. Neuro examination shows no focal neuro deficit. Patient's NIH score is 0. Will obtain basic lab work. Will obtain CTA and CT of brain and neck due to patient's history of stroke and new onset headache today. Will also obtain cardiac evaluation. See Dr. Hoskins's dictation for specific EKG interpretation. However, normal sinus rhythm without signs of STEMI. Patient's CBC and CMP shows mild derangements which are unremarkable. Patient's troponin is negative. Ang CT the head/neck showed no significant change. No acute abnormality. Chronic left parietal lobe infarct. Nonspecific cerebral white matter disease, most likely due to aging/chronic microvascular ischemic disease. CTA of the head showed no proximal intracranial large vessel occlusion or intracranial aneurysm. Mildless than 50%stenosis at the origin of the right internal carotid artery by NASCET criteria, caused by calcified and noncalcified plaque with a less than 2 mm residual lumen. CTA of the neck showed no proximal intracranial large vessel occlusion or intracranial aneurysm. Mildless than 50%stenosis at the origin of the right internal carotid artery by NASCET criteria, caused by calcified and noncalcified plaque with a less than 2 mm residual lumen. Mildless than 50%stenosis at the origin of the left internal carotid artery by MACK CET criteria, caused by calcified and noncalcified plaque with a less than 2 mm residual lumen. Chest x-ray showed no acute airspace disease or significant interval change. Upon reevaluation of the patient shows no change in mental status. Patient reports that his headache is still present but mild now mild. Patient has been having dizziness intermittently for the past several weeks which he had a prior admission for on 10/22/2020 and has had continued symptoms today. He presents to the ED secondary to dizziness associated with a headache. Imaging today shows no acute findings and lab work is unremarkable. However, given the patient's concern for dizziness, headache, and increased risk for falls, admission for observation was offered patient but he declines at this time requesting discharge to home. All risks versus benefits discussed with patient and expresses understanding. Strict return precautions thoroughly discussed with patient. Discussed with patient need to follow-up with primary care. Voices understanding and is agreeable to plan of care. Denies any further questions or concerns at this time. Diagnostics: CT of head, CTA of head and neck, chest x-ray, EKG, CBC, CMP, troponin Therapeutics: Toradol Prescription: None Impression: Headache Dizziness Plan: 1. You can take Tylenol as directed for pain and discomfort. 2. Follow-up with primary care provider as discussed. Return to the ED as needed and as discussed. Definitive disposition and diagnosis as appropriate pending reevaluation and review of above. head Pain Score (Numeric/FACES): 6 - Related Data Allergies Allergy/AdvReac Type Severity Reaction Status Date / Time No Known Allergies Allergy Verified 01/07/21 10:25 Home Meds: Home Meds atenoloL [Atenolol] 12 mg PO DAILY 08/01/14 [History] Aspirin [Halfprin] 1 tab PO DAILY 12/20/14 [History] Rosuvastatin Calcium [Crestor] 40 mg PO DAILY 01/05/18 [History] Apixaban [Eliquis] 2.5 mg PO BID 02/29/20 [History] Meclizine [Antivert] 12.5 mg PO DAILY PRN #7 tab 10/23/20 [Rx] atenoloL [Tenormin] 12 mg PO DAILY #14 tablet 10/23/20 [Rx] lisinopriL [Lisinopril] 5 mg PO DAILY #21 tablet 10/23/20 [Rx] Past Medical History HEENT History: Reports: Cataract Other HEENT History: wears glasses Cardiovascular History: Reports: High Cholesterol, Hypertension Respiratory History: Reports: None Other Respiratory History: FORMER SMOKER Gastrointestinal History: Reports: None Genitourinary History: Reports: BPH Musculoskeletal History: Reports: Amputation, Arthritis Other Musculoskeletal History: amputation of right thumb Neurological History: Reports: CVA Other Neuro History: 2008, still taking Plavix Psychiatric History: Reports: None Endocrine/Metabolic History: Reports: None Hematologic History: Reports: None Immunologic History: Reports: None Oncologic (Cancer) History: Reports: Other (See Below) Other Oncologic History: some type of skin cancer removed from chest Dermatologic History: Reports: None - Infectious Disease History Infectious Disease History: Reports: Chicken Pox, Measles, Mumps - Past Surgical History Head Surgeries/Procedures: Reports: None HEENT Surgical History: Reports: Eye Surgery Other HEENT Surgeries/Procedures: removal of foreign body right eye Cardiovascular Surgical History: Reports: Carotid Endarterectomy Respiratory Surgical History: Reports: None GI Surgical History: Reports: Other (See Below) Other GI Surgeries/Procedures: PEG tube Male Surgical History: Reports: None Endocrine Surgical History: Reports: None Neurological Surgical History: Reports: Thoracic Spine Musculoskeletal Surgical History: Reports: Amputation Other Musculoskeletal Surgeries/Procedures:: right thumb Oncologic Surgical History: Reports: None Dermatological Surgical History: Reports: None Social & Family History - Family History Family Medical History: No Pertinent Family History - Caffeine Use Caffeine Use: Reports: Soda - Living Situation & Occupation Living situation: Reports: Occupation: Retired ED ROS GENERAL - Review of Systems Review Of Systems: Comprehensive ROS is negative, except as noted in HPI. ED EXAM, GENERAL - Physical Exam Exam: See Below (see dictation) Course - Vital Signs Last Recorded V/S: Last Vital Signs Temp 97.0 F 01/07/21 10:26 Pulse 55 L 01/07/21 14:00 Resp 18 01/07/21 14:00 BP 127/69 01/07/21 14:00 Pulse Ox 99 01/07/21 14:00 - Orders/Labs/Meds Orders: Active Orders 24 hr Category Date Time Status UA RFX ALL AND CULT IF INDIC [URIN] Stat Lab 01/07/21 10:28 Ordered Peripheral IV Insertion Adult [OM.PC] Stat Oth 01/07/21 10:28 Ordered Labs: Laboratory Tests 01/07/21 01/07/21 Range/Units 10:38 10:38 WBC 5.18 (4.0-11.0) K/uL RBC 4.03 L (4.50-5.90) M/uL Hgb 13.1 (13.0-17.0) g/dL Hct 38.9 (38.0-50.0) % MCV 96.5 (80.0-98.0) fL MCH 32.5 H (27.0-32.0) pg MCHC 33.7 (31.0-37.0) g/dL RDW Std Deviation 46.8 (28.0-62.0) fl RDW Coeff of Cat 13 (11.0-15.0) % Plt Count 208 (150-400) K/uL MPV 11.20 (7.40-12.00) fL Neut % (Auto) 62.7 (48.0-80.0) % Lymph % (Auto) 24.7 (16.0-40.0) % [place] % (Auto) 8.1 (0.0-15.0) % Eos % (Auto) 4.1 (0.0-7.0) % Baso % (Auto) 0.4 (0.0-1.5) % Neut # (Auto) 3.3 (1.4-5.7) K/uL Lymph # (Auto) 1.3 (0.6-2.4) K/uL [place] # (Auto) 0.4 (0.0-0.8) K/uL Eos # (Auto) 0.2 (0.0-0.7) K/uL Baso # (Auto) 0.0 (0.0-0.1) K/uL Nucleated RBC % 0.0 /100WBC Nucleated RBCs # 0 K/uL Sodium 139 (136-148) mmol/L Potassium 4.1 (3.5-5.1) mmol/L Chloride 104 (98-107) mmol/L Carbon Dioxide 29.2 (21.0-32.0) mmol/L BUN 22 H (7.0-18.0) mg/dL Creatinine 0.9 (0.8-1.3) mg/dL Est Cr Clr Drug Dosing 58.80 mL/min Estimated GFR (MDRD) > 60.0 ml/min Glucose 105 (74-106) mg/dL Calcium 8.9 (8.5-10.1) mg/dL Total Bilirubin 0.5 (0.2-1.0) mg/dL AST 12 L (15-37) IU/L ALT 18 (14-63) IU/L Alkaline Phosphatase 74 (46-116) U/L Troponin I < 0.050 (0.000-0.056) ng/mL Total Protein 7.4 (6.4-8.2) g/dL Albumin 4.1 (3.4-5.0) g/dL Globulin 3.3 (2.6-4.0) g/dL Albumin/Globulin Ratio 1.2 (0.9-1.6) TSH 3rd Generation 0.90 (0.36-3.74) uIU/mL Meds: Medications Discontinued Medications Generic Name Dose Route Start Last Admin Trade Name Freq PRN Reason Stop Dose Admin Iopamidol 100 ml 01/07/21 11:16 01/07/21 11:16 Iopamidol 755 Mg/Ml 500 Ml Multipack Bottle IVPUSH 01/07/21 11:17 100 ml ONETIME STA Administration Ketorolac Tromethamine 15 mg 01/07/21 12:51 01/07/21 13:21 Ketorolac 30 Mg/Ml Sdv IVPUSH 01/07/21 12:52 15 mg ONETIME ONE Administration Ketorolac Tromethamine Confirm 01/07/21 13:19 01/07/21 13:47 Ketorolac 15 Mg/Ml Sdv Administered 01/07/21 13:20 Not Given Dose 15 mg .ROUTE .STK-MED ONE Sodium Chloride 10 ml 01/07/21 10:28 01/07/21 10:40 Sodium Chloride 0.9% 10 Ml Syringe FLUSH 10 ml ASDIRECTED PRN Administration Keep Vein Open Sodium Chloride 2.5 ml 01/07/21 10:28 01/07/21 10:40 Sodium Chloride 0.9% 2.5 Ml Syringe FLUSH 2.5 ml ASDIRECTED PRN Administration Keep Vein Open Departure - Departure Time of Disposition: 12:51 Disposition: Home, Self-Care 01 Clinical Impression: Dizziness Headache Qualifiers: Headache type: unspecified Headache chronicity pattern: acute headache Intractability: not intractable Qualified Code(s): R51.9 - Headache, unspecified - Discharge Information Instructions: General Headache Without Cause, Dizziness, [id number] Referrals: Riana Dean [Primary Care Provider] - Forms: ED Department Discharge Additional Instructions: The following information is given to patients seen in the emergency department who are being discharged to home. This information is to outline your options for follow-up care. We provide all patients seen in our emergency department with a follow-up referral. The need for follow-up, as well as the timing and circumstances, are variable depending upon the specifics of your emergency department visit. If you don't have a primary care physician on staff, we will provide you with a referral. We always advise you to contact your personal physician following an emergency department visit to inform them of the circumstance of the visit and for follow-up with them and/or the need for any referrals to a consulting specialist. The emergency department will also refer you to a specialist when appropriate. This referral assures that you have the opportunity for follow-up care with a specialist. All of these measure are taken in an effort to provide you with optimal care, which includes your follow-up. Under all circumstances we always encourage you to contact your private physician who remains a resource for coordinating your care. When calling for follow-up care, please make the office aware that this follow-up is from your recent emergency room visit. If for any reason you are refused follow-up, please contact the [facility] Emergency Department at and asked to speak to the emergency department charge nurse. [facility] [address] [place] [id number] [address] 1. You can take Tylenol as directed for pain and discomfort. 2. Follow-up with primary care provider as discussed. Return to the ED as needed and as discussed. Sepsis Event Note (ED) - Evaluation Sepsis Screening Result: No Definite Risk - Focused Exam Vital Signs: Vital Signs Temp Pulse Resp BP Pulse Ox 01/07/21 14:00 55 L 18 127/69 99 01/07/21 13:00 56 L 18 124/67 99 01/07/21 12:00 59 L 18 124/69 99 01/07/21 10:30 58 L 18 154/85 H 99 01/07/21 10:26 97.0 F 56 L 18 154/85 H 96 - My Orders Last 24 Hours: My Active Orders 01/07/21 10:28 UA RFX ALL AND CULT IF INDIC [URIN] Stat Peripheral IV Insertion Adult [OM.PC] Stat - Assessment/Plan Last 24 Hours: My Active Orders 01/07/21 10:28 UA RFX ALL AND CULT IF INDIC [URIN] Stat Peripheral IV Insertion Adult [OM.PC] Stat
[2021-01-07] MEDS ORDERED: Ketorolac 15 MG/ML SDV ONE (13:19)
[2021-01-07 14:02] VITALS: BP 127/69; PULSE 55
== END 2021-01-07 14:03 | disposition home or self-care (01) ==
LOC: MW.ED 09:58
DX: R42 Dizziness and giddiness (principal); R51.9 Headache, unspecified; E78.00 Pure hypercholesterolemia, unspecified; I10 Essential (primary) hypertension; M19.90 Unspecified osteoarthritis, unspecified site; Z79.82 Long term (current) use of aspirin; Z86.73 Personal history of transient ischemic attack (TIA), and cerebral infarction without residual deficits; Z79.02 Long term (current) use of antithrombotics/antiplatelets; Z87.891 Personal history of nicotine dependence; Z79.01 Long term (current) use of anticoagulants
CPT/HCPCS: 36415; 70450; 70496; 70498; 71045; 80053; 84443; 84484; 85025; 93005; 96374; 99284; J1885; Q9967; 99283

== ENCOUNTER 2022-10-08 18:48 | Emergency (ER) | payer MEDICARE, BC ==
[2022-10-08 20:21] LABS: CARBON DIOXIDE,CO2 30.6 mmol/L (21.0-32.0)
[2022-10-08 21:34] VITALS: BP 116/56; PULSE 84
== END 2022-10-08 21:35 | disposition home or self-care (01) ==
LOC: MW.ED 18:48
DX: R53.1 Weakness (principal); E78.00 Pure hypercholesterolemia, unspecified; I10 Essential (primary) hypertension; M19.90 Unspecified osteoarthritis, unspecified site; Z86.73 Personal history of transient ischemic attack (TIA), and cerebral infarction without residual deficits; Z87.891 Personal history of nicotine dependence; Z79.02 Long term (current) use of antithrombotics/antiplatelets; Z79.01 Long term (current) use of anticoagulants; Z79.82 Long term (current) use of aspirin; Z79.899 Other long term (current) drug therapy
CPT/HCPCS: 36415; 70450; 70450-26; 71045; 71045-26; 80048; 81001; 84484; 85025; 99283; 99285

== ENCOUNTER 2022-10-09 11:04 | Emergency (ER) | payer MEDICARE, BC ==
[2022-10-09] MEDS ORDERED: Sodium Chloride 0.9% 20 ML SDV IV PRN (11:33)
[2022-10-09] MEDS ORDERED: Lidocaine 5% 700 MG Patch TOP ONE (11:37)
[2022-10-09] MEDS ORDERED: Acetaminophen 325 MG Tab PO ONE (11:37)
[2022-10-09] MEDS ORDERED: Morphine 2 MG/ML SYRINGE IVPUSH ONE (11:37)
[2022-10-09] MEDS ORDERED: Iopamidol 755 MG/ML 500 ML Multipack Bottle IVPUSH STA (12:14)
[2022-10-09 12:35] LABS: CORONAVIRUS COVID-19 NAA POSITIVE (NEGATIVE); INFLUENZA A NAA NEGATIVE (NEGATIVE); INFLUENZA B NAA NEGATIVE (NEGATIVE); RESPIRATORY SYNCYTIAL VIR NAA NEGATIVE (NEGATIVE)
[2022-10-09 12:38] LABS: CARBON DIOXIDE,CO2 28.6 mmol/L (21.0-32.0); POTASSIUM,K 3.9 mmol/L (3.5-5.1)
[2022-10-09 17:12] VITALS: BP 122/68; PULSE 76
== END 2022-10-09 17:00 ==
LOC: MW.ED 11:04
DX: U07.1 COVID-19 (principal); I71.40 Abdominal aortic aneurysm, without rupture, unspecified; R29.6 Repeated falls; E78.00 Pure hypercholesterolemia, unspecified; I10 Essential (primary) hypertension; Z87.891 Personal history of nicotine dependence; Z79.82 Long term (current) use of aspirin; Z79.01 Long term (current) use of anticoagulants; Z79.899 Other long term (current) drug therapy; Z86.73 Personal history of transient ischemic attack (TIA), and cerebral infarction without residual deficits
CPT/HCPCS: 0241U; 36415; 70450; 70450-26; 71260; 71260-26; 72125; 72125-26; 72128; 72128-26; 72131; 72131-26; 74177; 74177-26; 80053; 81001; 85025; 96374; 99285; 99285-25; A9270-GY; J2270; Q9967

== ENCOUNTER 2022-10-19 10:02 | Inpatient (IN) | payer MEDICARE, BC ==
[2022-10-19] MEDS ORDERED: Sodium Chloride 0.9% 10 ML Syringe FLUSH PRN (10:16)
[2022-10-19] MEDS ORDERED: Sodium Chloride 0.9% 1,000 ML IV ONE ×2 (10:16→12:56)
[2022-10-19] MEDS ORDERED: Sodium Chloride 0.9% 2.5 ML Syringe FLUSH PRN (10:16)
[2022-10-19] MEDS ORDERED: Diltiazem 25 MG/5 ML SDV IVPUSH ONE (10:17)
[2022-10-19] MEDS: Diltiazem 100 MG in Sodium Chloride 0.9% 100 ML IV SCH (10:35)
[2022-10-19 11:03] LABS: CARBON DIOXIDE,CO2 26.9 mmol/L (21.0-32.0); POTASSIUM,K 4.4 mmol/L (3.5-5.1)
[2022-10-19] MEDS ORDERED: Iopamidol 755 MG/ML 500 ML Multipack Bottle IVPUSH ONE (11:33)
[2022-10-19] MEDS ORDERED: Morphine 2 MG/ML SYRINGE IVPUSH PRN (15:15)
[2022-10-19] MEDS ORDERED: Enoxaparin 40 MG/0.4 ML Syringe SUBCUT SCH (15:15)
[2022-10-19] MEDS ORDERED: Ondansetron 4 MG/2 ML SDV IVPUSH PRN (15:15)
[2022-10-19] MEDS ORDERED: Metoprolol Tartrate 5 MG/5 ML SDV IVPUSH PRN (15:15)
[2022-10-19] MEDS ORDERED: Acetaminophen 650 MG Supp RECTAL PRN (15:15)
[2022-10-19] MEDS: Sodium Chloride 0.45% with KCl 1,000 ML IV SCH (15:52)
[2022-10-19] MEDS ORDERED: Metoprolol Tartrate 5 MG/5 ML SDV IVPUSH SCH (22:00)
[2022-10-20] MEDS ORDERED: Sodium Chloride 0.9% 100 ML ONE (00:28)
[2022-10-20] MEDS: Diltiazem 100 MG in Sodium Chloride 0.9% 100 ML IV SCH (00:33)
[2022-10-20] MEDS: Sodium Chloride 0.45% with KCl 1,000 ML IV SCH (00:34)
[2022-10-20] MEDS ORDERED: Scopolamine 1.5 MG Transdermal Patch TRDERM SCH (04:15)
[2022-10-20 06:14] LABS: CARBON DIOXIDE,CO2 24.8 mmol/L (21.0-32.0); POTASSIUM,K 4.3 mmol/L (3.5-5.1)
[2022-10-20] MEDS ORDERED: Cefepime 2 GM in Sodium Chloride 0.9% 50 ML IV SCH (09:00)
[2022-10-20] MEDS ORDERED: Morphine 2 MG/ML SYRINGE IVPUSH PRN (10:09)
[2022-10-20] MEDS ORDERED: LORazepam 2 MG/ML SDV IVPUSH PRN (10:09)
[2022-10-20] MEDS ORDERED: Ondansetron 4 MG/2 ML SDV IVPUSH PRN (10:13)
[2022-10-20] MEDS ORDERED: Morphine 100 MG/5 ML (15 ML) Oral Solution PO PRN (10:37)
[2022-10-20] MEDS ORDERED: LORazepam ORAL Concentrate 1MG/0.5ML U/D PO PRN (10:37)
[2022-10-20] MEDS: Morphine 10 MG/0.5 ML Oral Syringe PO PRN ×2 (14:01→15:19)
[2022-10-20] MEDS ORDERED: Haloperidol Lactate 2 MG/ML Oral Soln 15 ML Bottle PO PRN (14:05)
[2022-10-20 15:26] VITALS: BP 137/88; PULSE 131
[2022-10-20] MEDS: Morphine 2 MG/ML SYRINGE IVPUSH PRN ×2 (16:05→16:50)
== END 2022-10-20 17:35 | disposition expired | DRG 308 ==
LOC: MW.ED 10:02 → MW.ICU 13:37 → MW.MS 10-20 13:35
PROVIDERS: ADMIT Internal Medicine; ATTEND Internal Medicine
DX: Z51.5 Encounter for palliative care (principal); E43 Unspecified severe protein-calorie malnutrition; R47.01 Aphasia; Z68.1 Body mass index [BMI] 19.9 or less, adult; I48.91 Unspecified atrial fibrillation; E86.0 Dehydration; R53.1 Weakness; Z66 Do not resuscitate; I73.9 Peripheral vascular disease, unspecified; I10 Essential (primary) hypertension; D64.9 Anemia, unspecified; M19.90 Unspecified osteoarthritis, unspecified site; R13.12 Dysphagia, oropharyngeal phase; H26.9 Unspecified cataract; R53.81 Other malaise; E78.00 Pure hypercholesterolemia, unspecified; I71.40 Abdominal aortic aneurysm, without rupture, unspecified; I65.22 Occlusion and stenosis of left carotid artery; I25.10 Atherosclerotic heart disease of native coronary artery without angina pectoris; K59.00 Constipation, unspecified; R13.10 Dysphagia, unspecified; Z89.011 Acquired absence of right thumb; N40.0 Benign prostatic hyperplasia without lower urinary tract symptoms; Z79.02 Long term (current) use of antithrombotics/antiplatelets; Z86.16 Personal history of COVID-19; Z79.82 Long term (current) use of aspirin; Z98.890 Other specified postprocedural states; Z85.828 Personal history of other malignant neoplasm of skin; Z79.01 Long term (current) use of anticoagulants; Z79.899 Other long term (current) drug therapy; Z86.73 Personal history of transient ischemic attack (TIA), and cerebral infarction without residual deficits; Z87.891 Personal history of nicotine dependence
CPT/HCPCS: 36415; 70491; 71045; 80053; 81001; 83735; 84443; 84484; 85025; 85610; 85730; 93005; 96361; 96374; 99285; J3490 ×5; J7030 ×2; J7050; Q9967; 80048; 84132; 85027; 87040; A9270-GY; J1650; J2060; J2270; J3480